=== PATIENT | male | born 1965 | race Caucasian/White ===

== ENCOUNTER 2019-08-14 01:40 | Inpatient (IN) | payer MEDICARE, MEDICAID ==
[~2019-08-14] VITALS: Ht 165.1 cm; Wt 46.9 kg
[~2019-08-14 01:40] MED LIST: AMLO10TA80 PO; ASPI-1497 MT; ATOR40TA70 MT; CLOP75TA4 MT; EPOE10005 SUBCUT; HYDR-4001 MT; HYDR-4001 PO; HYDR-4134 PO; INSLIS SUBCUT; LISI40TA4 PO; NEPVIT MT; PIOG15TA6 MT; SEVE800T8 PO; SODI473S22 TOP
[2019-08-14] MEDS ORDERED: ACETAMINOPHEN 325MG TABLET PO STA (02:32)
[2019-08-14 04:30] LABS: EOSINOPHILS % 2.2 % (0.0-5.0); HEMATOCRIT. 29.8 % (42.0-52.0); HEMOGLOBIN. 9.7 g/dL (14.0-18.0); LYMPHOCYTES % 8.5 % (20.0-50.0); MEAN CORPUSCULAR HEMOGLOBIN 30.3 pg (28.0-32.0); MEAN CORPUSCULAR VOLUME 93.1 fL (80.0-94.0); MONOCYTES % 4.9 % (2.0-8.0); NEUTROPHILS % 83.4 % (40.0-76.0); PLATELET 336 x1000/uL (130-400); RED CELL DISTRIBUTION WIDTH 19.4 % (11.6-14.6)
[2019-08-14 04:39] LABS: CHLORIDE 104 mEq/L (98-107)
[2019-08-14 04:42] LABS: INR 1.1; PROTHROMBIN TIME 11.8 sec (9.6-11.0)
[2019-08-14] MEDS ORDERED: POTASSIUM CHLORIDE 20MEQ TABLET SR PO ONE (05:15)
[2019-08-14] MEDS: SODIUM CHLORIDE 0.45% 1,000 ML IV SCH (11:58)
[2019-08-14] MEDS ORDERED: IPRATROPIUM/ALBUTEROL 0.5-3(2.5)MG/3ML NEB NEB PRN (12:00)
[2019-08-14] MEDS ORDERED: HYDROCODONE/ACETAMINOPHEN 10/325MG TABLET PO PRN (12:00)
[2019-08-14] MEDS ORDERED: ACETAMINOPHEN 325MG TABLET PO PRN (12:00)
[2019-08-14] MEDS ORDERED: LORAZEPAM 2MG/ML CPJ IV PRN (12:00)
[2019-08-14] MEDS ORDERED: MORPHINE SULFATE 2 MG/ML CPJ (NOT FOR IM USE) IV PRN (12:00)
[2019-08-14] MEDS ORDERED: ENOXAPARIN 40MG/0.4ML SYR SUBCUT SCH (12:00)
[2019-08-14] MEDS ORDERED: CLONIDINE 0.1MG TABLET PO PRN (12:00)
[2019-08-14] MEDS ORDERED: DIPHENHYDRAMINE 50MG/ML VIAL IV PRN (12:00)
[2019-08-14] MEDS ORDERED: MAGNESIUM/ALUMINUM HYDROXIDE/SIMETHICONE 30ML UDC PO PRN (12:00)
[2019-08-14] MEDS ORDERED: DOCUSATE SODIUM 100MG CAPSULE PO PRN (12:00)
[2019-08-14] MEDS ORDERED: HYDRALAZINE 20MG/ML VIAL IV PRN (12:00)
[2019-08-14] MEDS ORDERED: GUAIFENESIN 200MG/10ML SUGAR FREE UDC PO PRN (12:00)
[2019-08-14] MEDS ORDERED: ONDANSETRON HCL 4MG/2ML INJ IV PRN (12:00)
[2019-08-14] MEDS ORDERED: DEXTROSE 50% WATER 50ML SYRINGE IV PRN (12:00)
[2019-08-14] MEDS: ENOXAPARIN 30MG/0.3ML SYR SUBCUT SCH (12:30)
[2019-08-14] MEDS ORDERED: LEVOFLOXACIN 500MG PREMIX 100 ML IV SCH (12:30)
[2019-08-14] MEDS ORDERED: POTASSIUM CHLORIDE INJ 40 MEQ in DEXT 5% WATER 250 ML IV ONE (12:45)
[2019-08-14] MEDS ORDERED: POTASSIUM CHLORIDE 20MEQ TABLET SR PO NR (12:45)
[2019-08-14] MEDS: BLOOD SUGAR DIAGNOSTIC STRIP TEST SCH ×3 (13:42→21:01)
[2019-08-14] MEDS: INSULIN LISPRO 100 UNITS/ML SUBCUT SCH ×3 (13:46→21:00)
[2019-08-14] MEDS: SODIUM CHLORIDE 0.9% INJ 3ML FLUSH IVF SCH ×2 (14:56→21:01)
[2019-08-14 17:39] VITALS: BP 167/99
[2019-08-14 20:00] VITALS: BP 116/82
[2019-08-14 23:41] VITALS: BP 112/76
[2019-08-15 04:00] VITALS: BP_SYST 102; BP_SYST 112; BP_DIAS 59; BP_DIAS 76
[2019-08-15] MEDS: BLOOD SUGAR DIAGNOSTIC STRIP TEST SCH ×4 (06:40→21:00)
[2019-08-15 07:01] LABS: EOSINOPHILS % 2.3 % (0.0-5.0); HEMATOCRIT. 27.9 % (42.0-52.0); HEMOGLOBIN. 8.9 g/dL (14.0-18.0); LYMPHOCYTES % 11.1 % (20.0-50.0); MEAN CORPUSCULAR HEMOGLOBIN 30.1 pg (28.0-32.0); MEAN CORPUSCULAR VOLUME 93.9 fL (80.0-94.0); MEAN PLATELET VOLUME 8.8 fl (7.4-10.4); NEUTROPHILS % 81.6 % (40.0-76.0); PLATELET 342 x1000/uL (130-400); RED BLOOD CELL COUNT 2.97 mill/uL (4.7-6.1); RED CELL DISTRIBUTION WIDTH 19.9 % (11.6-14.6)
[2019-08-15 07:09] LABS: CHLORIDE 108 mEq/L (98-107)
[2019-08-15] MEDS: INSULIN LISPRO 100 UNITS/ML SUBCUT SCH ×4 (07:10→21:00)
[2019-08-15 08:00] VITALS: BP 154/96
[2019-08-15] MEDS: SODIUM CHLORIDE 0.45% 1,000 ML IV SCH ×2 (11:58→22:16)
[2019-08-15 12:00] VITALS: BP 135/88
[2019-08-15] MEDS ORDERED: LEVOFLOXACIN 250MG PREMIX 50 ML IV SCH (12:00)
[2019-08-15] MEDS: ENOXAPARIN 30MG/0.3ML SYR SUBCUT SCH (12:47)
[2019-08-15] MEDS: SODIUM CHLORIDE 0.9% INJ 3ML FLUSH IVF SCH (12:50)
[2019-08-15 12:54] LABS: COVID-19 PCR RNA NOT DETECTED
[2019-08-15 12:55] LABS: COVID-19 PCR RNA NOT DETECTED
[2019-08-15 16:00] VITALS: BP 150/92
[2019-08-16] MEDS: INSULIN LISPRO 100 UNITS/ML SUBCUT SCH ×4 (06:09→21:00)
[2019-08-16] MEDS: BLOOD SUGAR DIAGNOSTIC STRIP TEST SCH ×4 (06:09→21:16)
[2019-08-16] MEDS: SODIUM CHLORIDE 0.9% INJ 3ML FLUSH IVF SCH ×3 (06:09→21:17)
[2019-08-16 07:22] LABS: EOSINOPHILS % 2.9 % (0.0-5.0); HEMATOCRIT. 26.9 % (42.0-52.0); HEMOGLOBIN. 8.7 g/dL (14.0-18.0); LYMPHOCYTES % 10.1 % (20.0-50.0); MEAN CORPUSCULAR VOLUME 93.3 fL (80.0-94.0); MEAN PLATELET VOLUME 8.7 fl (7.4-10.4); PLATELET 305 x1000/uL (130-400); RED BLOOD CELL COUNT 2.88 mill/uL (4.7-6.1); RED CELL DISTRIBUTION WIDTH 19.7 % (11.6-14.6)
[2019-08-16 08:00] VITALS: BP 159/91
[2019-08-16 12:00] VITALS: BP 178/99
[2019-08-16] MEDS: ENOXAPARIN 30MG/0.3ML SYR SUBCUT SCH (12:41)
[2019-08-16 16:00] VITALS: BP 163/99
[2019-08-16 20:00] VITALS: BP 139/88
[2019-08-16] MEDS ORDERED: HYDRALAZINE 10 MG in SODIUM CHLORIDE 0.9% 49.5 ML IV PRN (20:15)
[2019-08-17] VITALS: BP 174/99
[2019-08-17 04:00] VITALS: BP 164/72
[2019-08-17 06:01] LABS: BASOPHILS % 0.6 % (0.0-2.0); EOSINOPHILS % 2.3 % (0.0-5.0); HEMATOCRIT. 23.9 % (42.0-52.0); HEMOGLOBIN. 7.7 g/dL (14.0-18.0); LYMPHOCYTES % 10.6 % (20.0-50.0); MEAN CORPUSCULAR HEMOGLOBIN 30.2 pg (28.0-32.0); MEAN CORPUSCULAR VOLUME 93.2 fL (80.0-94.0); MEAN PLATELET VOLUME 8.9 fl (7.4-10.4); MONOCYTES % 4.3 % (2.0-8.0); NEUTROPHILS % 82.2 % (40.0-76.0); PLATELET 309 x1000/uL (130-400); RED BLOOD CELL COUNT 2.57 mill/uL (4.7-6.1); RED CELL DISTRIBUTION WIDTH 19.8 % (11.6-14.6)
[2019-08-17] MEDS: BLOOD SUGAR DIAGNOSTIC STRIP TEST SCH ×2 (06:39→11:54)
[2019-08-17] MEDS: SODIUM CHLORIDE 0.9% INJ 3ML FLUSH IVF SCH ×2 (06:39→14:21)
[2019-08-17] MEDS: INSULIN LISPRO 100 UNITS/ML SUBCUT SCH ×2 (06:48→12:51)
[2019-08-17 08:00] VITALS: BP 166/97
[2019-08-17] MEDS ORDERED: SODIUM HYPOCHLORITE 0.125% 473ML SOLUTION TOP SCH (09:00)
[2019-08-17] MEDS ORDERED: LEVOFLOXACIN 250MG PREMIX 50 ML IV SCH (11:00)
[2019-08-17] MEDS: ENOXAPARIN 30MG/0.3ML SYR SUBCUT SCH (11:54)
[2019-08-17 12:00] VITALS: BP 129/82
[2019-08-17 14:46] VITALS: BP 129/82
== END 2019-08-17 16:29 | disposition home health service (06) | DRG 640 ==
LOC: ER 01:40 → 7EST 04:34 → ENRESERV 15:34 → 6EST 08-15 21:00
PROVIDERS: ADMIT Internal Medicine; ATTEND Internal Medicine
DX: E87.6 Hypokalemia (principal); E43 Unspecified severe protein-calorie malnutrition; N18.6 End stage renal disease; I12.0 Hypertensive chronic kidney disease with stage 5 chronic kidney disease or end stage renal disease; L97.419 Non-pressure chronic ulcer of right heel and midfoot with unspecified severity; Z68.1 Body mass index [BMI] 19.9 or less, adult; R65.10 Systemic inflammatory response syndrome (SIRS) of non-infectious origin without acute organ dysfunction; E11.621 Type 2 diabetes mellitus with foot ulcer; E87.2 Acidosis; I25.10 Atherosclerotic heart disease of native coronary artery without angina pectoris; E11.42 Type 2 diabetes mellitus with diabetic polyneuropathy; D72.810 Lymphocytopenia; E78.00 Pure hypercholesterolemia, unspecified; E11.22 Type 2 diabetes mellitus with diabetic chronic kidney disease; E78.5 Hyperlipidemia, unspecified; D63.8 Anemia in other chronic diseases classified elsewhere; E11.51 Type 2 diabetes mellitus with diabetic peripheral angiopathy without gangrene; Z99.2 Dependence on renal dialysis; Z89.612 Acquired absence of left leg above knee; Z74.01 Bed confinement status; Z98.61 Coronary angioplasty status; Z87.891 Personal history of nicotine dependence; Z79.84 Long term (current) use of oral hypoglycemic drugs; Z79.899 Other long term (current) drug therapy; Z03.818 Encounter for observation for suspected exposure to other biological agents ruled out
CPT/HCPCS: 36415; 71045; 80048; 80053; 82728; 82962; 83605; 83615; 84132; 84145; 84484; 85025; 85379; 86140; 87015; 87045; 87427; 87449; 87804; 93005; 93922; 93971; 97161; 97530; 99285; J1200; J1650; J1815; J1956; J2270; J3480; J7060

== ENCOUNTER 2019-08-22 20:59 | Inpatient (IN) | payer MEDICARE, MEDICAID ==
[~2019-08-22] VITALS: Ht 157.5 cm; Wt 51.7 kg
[~2019-08-22 20:59] MED LIST changes: -INSLIS SUBCUT
[2019-08-22] MEDS ORDERED: VANCOMYCIN 1 G PREMIX 200 ML IV SCH (22:00)
[2019-08-22] MEDS ORDERED: PIPERACILLIN/TAZ 2.25G PREMIX 50 ML IV ONE (22:00)
[2019-08-22] MEDS ORDERED: MORPHINE SULFATE 4 MG/ML CPJ (NOT FOR IM USE) IV ONE (22:15)
[2019-08-22 22:22] LABS: BASOPHILS % 0.9 % (0.0-2.0); EOSINOPHILS % 1.9 % (0.0-5.0); HEMATOCRIT. 26.6 % (42.0-52.0); HEMOGLOBIN. 8.7 g/dL (14.0-18.0); LYMPHOCYTES % 8.2 % (20.0-50.0); MEAN CORPUSCULAR VOLUME 91.6 fL (80.0-94.0); PLATELET 310 x1000/uL (130-400); RED BLOOD CELL COUNT 2.91 mill/uL (4.7-6.1); RED CELL DISTRIBUTION WIDTH 19.4 % (11.6-14.6)
[2019-08-22 22:24] LABS: CHLORIDE 101 mEq/L (98-107)
[2019-08-23] VITALS (9 sets, daily range): BP systolic 139–171; BP diastolic 68–100
[2019-08-23] MEDS ORDERED: MORPHINE SULFATE 2 MG/ML CPJ (NOT FOR IM USE) IV ONE
[2019-08-23] MEDS ORDERED: PIPERACILLIN/TAZOBACTAM 2.25 G in DEXTROSE 5% WATER 50 ML IV SCH ×2 (02:00→13:00)
[2019-08-23] MEDS: MORPHINE SULFATE 2 MG/ML CPJ (NOT FOR IM USE) IV PRN ×5 (03:35→23:12)
[2019-08-23] MEDS ORDERED: PIPERACILLIN/TAZOBACTAM 3.375 G in DEXT 5% WATER 100 ML IV SCH (08:15)
[2019-08-23] MEDS ORDERED: ONDANSETRON HCL 4MG/2ML INJ IV PRN (08:15)
[2019-08-23] MEDS ORDERED: LEVOFLOXACIN 500MG PREMIX 100 ML IV SCH ×2 (09:00→14:00)
[2019-08-23] MEDS ORDERED: VANCOMYCIN 1 G PREMIX 200 ML IV SCH (09:00)
[2019-08-23] MEDS: HYDROCODONE/ACETAMINOPHEN 5/325MG TABLET PO PRN ×2 (10:53→20:32)
[2019-08-23] MEDS: AMLODIPINE 5MG TABLET PO SCH ×2 (10:53→23:11)
[2019-08-23] MEDS: BLOOD SUGAR DIAGNOSTIC STRIP TEST SCH ×3 (11:50→20:35)
[2019-08-23] MEDS ORDERED: LEVOFLOXACIN 250MG PREMIX 50 ML IV SCH (12:15)
[2019-08-23] MEDS: INSULIN LISPRO 100 UNITS/ML SUBCUT SCH ×3 (12:20→20:35)
[2019-08-23] MEDS ORDERED: VANCOMYCIN 500 MG PREMIX 100 ML IV SCH (21:00)
[2019-08-23 21:27] LABS: PHOSPHORUS 2.7 mg/dL (2.5-4.9)
[2019-08-24] VITALS (11 sets, daily range): BP systolic 82–158; BP diastolic 56–103
[2019-08-24] MEDS: METOPROLOL TARTRATE 25MG TABLET PO SCH ×3 (00:22→21:04)
[2019-08-24] MEDS: ACETAMINOPHEN 325MG TABLET PO PRN (05:52)
[2019-08-24] MEDS: BLOOD SUGAR DIAGNOSTIC STRIP TEST SCH ×4 (05:54→21:04)
[2019-08-24 07:09] LABS: HEMATOCRIT. 25.7 % (42.0-52.0); HEMOGLOBIN. 8.1 g/dL (14.0-18.0); MEAN CORPUSCULAR HEMOGLOBIN 29.6 pg (28.0-32.0); MEAN CORPUSCULAR VOLUME 93.8 fL (80.0-94.0); PLATELET 270 x1000/uL (130-400); RED BLOOD CELL COUNT 2.74 mill/uL (4.7-6.1); RED CELL DISTRIBUTION WIDTH 19.4 % (11.6-14.6)
[2019-08-24] MEDS: INSULIN LISPRO 100 UNITS/ML SUBCUT SCH ×4 (07:20→21:00)
[2019-08-24] MEDS: DEXTROSE 50% WATER 50ML SYRINGE IV PRN ×2 (07:22→11:22)
[2019-08-24] MEDS: AMLODIPINE 5MG TABLET PO SCH ×3 (08:44→22:56)
[2019-08-24] MEDS: DEXT 5%/0.45% NACL 1000ML 1,000 ML IV SCH (11:35)
[2019-08-24 13:58] LABS: PLATELET ESTIMATE NORMAL
[2019-08-25] VITALS (14 sets, daily range): BP systolic 94–162; BP diastolic 56–102
[2019-08-25] MEDS: MORPHINE SULFATE 2 MG/ML CPJ (NOT FOR IM USE) IV PRN (05:37)
[2019-08-25] MEDS: BLOOD SUGAR DIAGNOSTIC STRIP TEST SCH ×4 (05:41→20:27)
[2019-08-25 06:25] LABS: HEMATOCRIT. 24.8 % (42.0-52.0); HEMOGLOBIN. 7.9 g/dL (14.0-18.0); MEAN CORPUSCULAR HEMOGLOBIN 29.8 pg (28.0-32.0); MEAN CORPUSCULAR VOLUME 92.9 fL (80.0-94.0); MEAN PLATELET VOLUME 9.3 fl (7.4-10.4); PLATELET 231 x1000/uL (130-400); RED BLOOD CELL COUNT 2.67 mill/uL (4.7-6.1)
[2019-08-25] MEDS: INSULIN LISPRO 100 UNITS/ML SUBCUT SCH ×4 (07:20→20:34)
[2019-08-25] MEDS: AMLODIPINE 5MG TABLET PO SCH ×2 (08:14→20:21)
[2019-08-25] MEDS: METOPROLOL TARTRATE 25MG TABLET PO SCH ×2 (08:14→20:21)
[2019-08-25] MEDS: DEXT 5%/0.45% NACL 1000ML 1,000 ML IV SCH (10:51)
[2019-08-25] MEDS: ACETAMINOPHEN 325MG TABLET PO PRN (10:53)
[2019-08-25] MEDS ORDERED: LEVOFLOXACIN 250MG PREMIX 50 ML IV SCH (11:00)
[2019-08-25] MEDS ORDERED: DEXTROSE 10% WATER 500 ML IV SCH (11:45)
[2019-08-25 13:42] LABS: PLATELET ESTIMATE NORMAL
[2019-08-25] MEDS ORDERED: CEFEPIME 2,000 MG in DEXT 5% WATER 100 ML IV SCH (15:15)
[2019-08-25] MEDS: DEXTROSE 10% WATER 1000ML IV SCH (16:52)
[2019-08-25] MEDS: CEFEPIME 1,000 MG in DEXTROSE 5% WATER 50 ML IV SCH (17:42)
[2019-08-26] VITALS (8 sets, daily range): BP systolic 119–145; BP diastolic 64–79
[2019-08-26] MEDS: BLOOD SUGAR DIAGNOSTIC STRIP TEST SCH ×2 (06:21→12:20)
[2019-08-26] MEDS: INSULIN LISPRO 100 UNITS/ML SUBCUT SCH ×2 (07:20→12:20)
[2019-08-26 07:27] LABS: HEMATOCRIT. 22.2 % (42.0-52.0); HEMOGLOBIN. 7.2 g/dL (14.0-18.0); MEAN CORPUSCULAR HEMOGLOBIN 29.8 pg (28.0-32.0); MEAN CORPUSCULAR VOLUME 92.2 fL (80.0-94.0); MEAN PLATELET VOLUME 9.4 fl (7.4-10.4); PLATELET 193 x1000/uL (130-400); RED BLOOD CELL COUNT 2.41 mill/uL (4.7-6.1); RED CELL DISTRIBUTION WIDTH 19.2 % (11.6-14.6)
[2019-08-26] MEDS: METOPROLOL TARTRATE 25MG TABLET PO SCH ×2 (08:25→21:15)
[2019-08-26] MEDS: AMLODIPINE 5MG TABLET PO SCH ×2 (08:25→21:15)
[2019-08-26 18:03] LABS: PLATELET ESTIMATE NORMAL
[2019-08-26] MEDS: DEXTROSE 10% WATER 1000ML IV SCH (18:35)
[2019-08-26 19:17] LABS: T4 FREE 1.27 ng/dL (0.76-1.46)
[2019-08-26] MEDS ORDERED: VANCOMYCIN 500 MG PREMIX 100 ML IV NR (21:00)
[2019-08-26] MEDS: OMEPRAZOLE 20MG CAPSULE EXTENDED RELEASE PO SCH (21:15)
[2019-08-26] MEDS ORDERED: DEXTROSE 50% WATER 50ML SYRINGE IV PRN (23:15)
[2019-08-27] VITALS (8 sets, daily range): BP systolic 118–152; BP diastolic 65–87
[2019-08-27] MEDS: BLOOD SUGAR DIAGNOSTIC STRIP TEST SCH ×4 (06:02→21:00)
[2019-08-27] MEDS: OMEPRAZOLE 20MG CAPSULE EXTENDED RELEASE PO SCH ×2 (06:02→20:35)
[2019-08-27 06:34] LABS: HEMATOCRIT. 25.3 % (42.0-52.0); HEMOGLOBIN. 8.3 g/dL (14.0-18.0); MEAN CORPUSCULAR HEMOGLOBIN 29.8 pg (28.0-32.0); MEAN CORPUSCULAR VOLUME 91.2 fL (80.0-94.0); MEAN PLATELET VOLUME 9.7 fl (7.4-10.4); PLATELET 182 x1000/uL (130-400); RED BLOOD CELL COUNT 2.78 mill/uL (4.7-6.1); RED CELL DISTRIBUTION WIDTH 18.9 % (11.6-14.6)
[2019-08-27] MEDS ORDERED: INSULIN LISPRO 100 UNITS/ML SUBCUT SCH (07:20)
[2019-08-27] MEDS: METOPROLOL TARTRATE 25MG TABLET PO SCH ×2 (08:38→20:36)
[2019-08-27] MEDS: AMLODIPINE 5MG TABLET PO SCH ×2 (08:39→20:36)
[2019-08-27] MEDS ORDERED: POTASSIUM CHLORIDE 20MEQ TABLET SR PO NR (10:45)
[2019-08-27] MEDS ORDERED: VANCOMYCIN 500 MG PREMIX 100 ML IV NR (12:00)
[2019-08-27] MEDS: CEFEPIME 1,000 MG in DEXTROSE 5% WATER 50 ML IV SCH (17:31)
[2019-08-27] MEDS: LINEZOLID 600 MG PREMIX 300 ML IV SCH (18:35)
[2019-08-27] MEDS: SULFAMETHOXAZOLE/TRIMETHOPRIM 800/160MG TABLET PO SCH (20:35)
[2019-08-27 21:13] LABS: NUCLEATED RED BLOOD CELLS 1 /100 WBC; PLATELET ESTIMATE NORMAL
[2019-08-28] VITALS (10 sets, daily range): BP systolic 92–142; BP diastolic 60–83
[2019-08-28] MEDS: LINEZOLID 600 MG PREMIX 300 ML IV SCH ×2 (05:38→17:13)
[2019-08-28] MEDS: OMEPRAZOLE 20MG CAPSULE EXTENDED RELEASE PO SCH ×2 (05:52→20:39)
[2019-08-28] MEDS: BLOOD SUGAR DIAGNOSTIC STRIP TEST SCH ×4 (06:04→20:39)
[2019-08-28 06:40] LABS: HEMATOCRIT. 22.9 % (42.0-52.0); HEMOGLOBIN. 7.5 g/dL (14.0-18.0); MEAN CORPUSCULAR HEMOGLOBIN 29.7 pg (28.0-32.0); MEAN CORPUSCULAR VOLUME 90.7 fL (80.0-94.0); MEAN PLATELET VOLUME 9.6 fl (7.4-10.4); PLATELET 148 x1000/uL (130-400); RED BLOOD CELL COUNT 2.53 mill/uL (4.7-6.1); RED CELL DISTRIBUTION WIDTH 18.9 % (11.6-14.6)
[2019-08-28] MEDS: METOPROLOL TARTRATE 25MG TABLET PO SCH ×2 (09:10→20:39)
[2019-08-28] MEDS: AMLODIPINE 5MG TABLET PO SCH ×2 (09:10→20:38)
[2019-08-28 13:44] LABS: PLATELET ESTIMATE NORMAL
[2019-08-28] MEDS ORDERED: POTASSIUM CHLORIDE 20MEQ TABLET SR PO NR (15:30)
[2019-08-28] MEDS: MEROPENEM 500 MG in SODIUM CHLORIDE 0.9% 50 ML IV SCH (17:29)
[2019-08-28] MEDS ORDERED: HEPARIN SODIUM 1,000 UNIT/1ML VIAL IV SCH (18:30)
[2019-08-28] MEDS: SULFAMETHOXAZOLE/TRIMETHOPRIM 800/160MG TABLET PO SCH (20:38)
[2019-08-29] VITALS (12 sets, daily range): BP systolic 93–135; BP diastolic 49–75
[2019-08-29] MEDS: MEROPENEM 500 MG in SODIUM CHLORIDE 0.9% 50 ML IV SCH ×2 (04:08→17:55)
[2019-08-29] MEDS: LINEZOLID 600 MG PREMIX 300 ML IV SCH ×2 (05:23→19:38)
[2019-08-29] MEDS: OMEPRAZOLE 20MG CAPSULE EXTENDED RELEASE PO SCH ×2 (06:04→21:28)
[2019-08-29] MEDS: BLOOD SUGAR DIAGNOSTIC STRIP TEST SCH ×4 (06:04→21:29)
[2019-08-29] MEDS: ACETAMINOPHEN 325MG TABLET PO PRN (06:04)
[2019-08-29 06:36] LABS: HEMATOCRIT. 24.5 % (42.0-52.0); MEAN CORPUSCULAR HEMOGLOBIN 29.6 pg (28.0-32.0); MEAN CORPUSCULAR VOLUME 90.3 fL (80.0-94.0); MEAN PLATELET VOLUME 9.7 fl (7.4-10.4); PLATELET 168 x1000/uL (130-400); RED BLOOD CELL COUNT 2.71 mill/uL (4.7-6.1); RED CELL DISTRIBUTION WIDTH 18.7 % (11.6-14.6)
[2019-08-29] MEDS: METOPROLOL TARTRATE 25MG TABLET PO SCH ×2 (09:14→21:28)
[2019-08-29] MEDS: AMLODIPINE 5MG TABLET PO SCH ×2 (09:14→21:29)
[2019-08-29] MEDS: HYDROCODONE/ACETAMINOPHEN 5/325MG TABLET PO PRN ×2 (11:08→21:39)
[2019-08-29] MEDS ORDERED: POTASSIUM CHLORIDE 20MEQ TABLET SR PO SCH (11:45)
[2019-08-29 12:45] LABS: PLATELET ESTIMATE NORMAL
[2019-08-29] MEDS: SULFAMETHOXAZOLE/TRIMETHOPRIM 800/160MG TABLET PO SCH (21:28)
[2019-08-30] VITALS (13 sets, daily range): BP systolic 97–133; BP diastolic 56–75
[2019-08-30] MEDS: MORPHINE SULFATE 2 MG/ML CPJ (NOT FOR IM USE) IV PRN ×4 (02:05→21:31)
[2019-08-30] MEDS: MEROPENEM 500 MG in SODIUM CHLORIDE 0.9% 50 ML IV SCH ×2 (04:17→17:11)
[2019-08-30] MEDS: LINEZOLID 600 MG PREMIX 300 ML IV SCH ×2 (05:11→18:28)
[2019-08-30] MEDS: BLOOD SUGAR DIAGNOSTIC STRIP TEST SCH ×4 (05:52→21:16)
[2019-08-30] MEDS: OMEPRAZOLE 20MG CAPSULE EXTENDED RELEASE PO SCH (05:52)
[2019-08-30] MEDS: AMLODIPINE 5MG TABLET PO SCH ×2 (08:22→21:29)
[2019-08-30] MEDS: METOPROLOL TARTRATE 25MG TABLET PO SCH ×2 (08:24→21:30)
[2019-08-30 09:32] LABS: HEMATOCRIT. 25.1 % (42.0-52.0); HEMOGLOBIN. 8.1 g/dL (14.0-18.0); MEAN CORPUSCULAR HEMOGLOBIN 29.5 pg (28.0-32.0); MEAN CORPUSCULAR VOLUME 91.2 fL (80.0-94.0); MEAN PLATELET VOLUME 9.6 fl (7.4-10.4); PLATELET 165 x1000/uL (130-400); RED BLOOD CELL COUNT 2.75 mill/uL (4.7-6.1); RED CELL DISTRIBUTION WIDTH 18.5 % (11.6-14.6)
[2019-08-30 12:31] LABS: PLATELET ESTIMATE NORMAL
[2019-08-30] MEDS: HYDROCODONE/ACETAMINOPHEN 5/325MG TABLET PO PRN (17:11)
[2019-08-30] MEDS: SULFAMETHOXAZOLE/TRIMETHOPRIM 800/160MG TABLET PO SCH (21:30)
[2019-08-31] VITALS (12 sets, daily range): BP systolic 104–125; BP diastolic 55–75
[2019-08-31] MEDS: MEROPENEM 500 MG in SODIUM CHLORIDE 0.9% 50 ML IV SCH ×2 (04:17→17:22)
[2019-08-31] MEDS: MORPHINE SULFATE 2 MG/ML CPJ (NOT FOR IM USE) IV PRN ×4 (04:38→22:14)
[2019-08-31] MEDS: LINEZOLID 600 MG PREMIX 300 ML IV SCH ×2 (05:55→17:32)
[2019-08-31] MEDS: BLOOD SUGAR DIAGNOSTIC STRIP TEST SCH ×4 (06:52→22:20)
[2019-08-31 07:12] LABS: HEMATOCRIT. 23.9 % (42.0-52.0); HEMOGLOBIN. 7.7 g/dL (14.0-18.0); MEAN CORPUSCULAR HEMOGLOBIN 29.4 pg (28.0-32.0); MEAN CORPUSCULAR VOLUME 91.3 fL (80.0-94.0); MEAN PLATELET VOLUME 9.9 fl (7.4-10.4); PLATELET 198 x1000/uL (130-400); RED BLOOD CELL COUNT 2.62 mill/uL (4.7-6.1); RED CELL DISTRIBUTION WIDTH 18.4 % (11.6-14.6)
[2019-08-31] MEDS: METOPROLOL TARTRATE 25MG TABLET PO SCH ×2 (09:00→22:22)
[2019-08-31] MEDS: AMLODIPINE 5MG TABLET PO SCH ×2 (09:00→22:22)
[2019-08-31] MEDS: FAMOTIDINE 20MG TABLET PO SCH (09:24)
[2019-08-31] MEDS: HYDROCODONE/ACETAMINOPHEN 5/325MG TABLET PO PRN (12:52)
[2019-08-31 16:36] LABS: PLATELET ESTIMATE NORMAL
[2019-08-31] MEDS ORDERED: LINE600T14 MT (16:39)
[2019-08-31] MEDS ORDERED: SULF1TAB44 MT (16:39)
[2019-08-31] MEDS ORDERED: AMOX1TAB16 MT (19:11)
[2019-08-31] MEDS ORDERED: EPOETIN ALFA 10000UNITS/ML VIAL SUBCUT SCH (21:00)
[2019-08-31] MEDS: SULFAMETHOXAZOLE/TRIMETHOPRIM 800/160MG TABLET PO SCH (22:23)
[2019-09-01] VITALS (8 sets, daily range): BP systolic 108–146; BP diastolic 65–83
[2019-09-01] MEDS: MORPHINE SULFATE 2 MG/ML CPJ (NOT FOR IM USE) IV PRN ×2 (04:21→09:44)
[2019-09-01] MEDS: MEROPENEM 500 MG in SODIUM CHLORIDE 0.9% 50 ML IV SCH (04:22)
[2019-09-01] MEDS: LINEZOLID 600 MG PREMIX 300 ML IV SCH (05:50)
[2019-09-01] MEDS: HYDROCODONE/ACETAMINOPHEN 5/325MG TABLET PO PRN (06:12)
[2019-09-01] MEDS: BLOOD SUGAR DIAGNOSTIC STRIP TEST SCH ×2 (06:20→12:11)
[2019-09-01 07:23] LABS: HEMOGLOBIN. 7.6 g/dL (14.0-18.0); MEAN CORPUSCULAR HEMOGLOBIN 29.3 pg (28.0-32.0); MEAN CORPUSCULAR VOLUME 92.3 fL (80.0-94.0); MEAN PLATELET VOLUME 9.6 fl (7.4-10.4); PLATELET 203 x1000/uL (130-400); RED CELL DISTRIBUTION WIDTH 18.3 % (11.6-14.6)
[2019-09-01] MEDS: METOPROLOL TARTRATE 25MG TABLET PO SCH (08:45)
[2019-09-01] MEDS: AMLODIPINE 5MG TABLET PO SCH (08:45)
[2019-09-01] MEDS: FAMOTIDINE 20MG TABLET PO SCH (08:46)
[2019-09-01 11:31] LABS: PLATELET ESTIMATE NORMAL
== END 2019-09-01 18:30 | disposition home health service (06) | DRG 564 ==
LOC: ER 20:59 → 3WST 23:41 → EDBEDREQTM 23:56 → EDBEDREQSVC 23:56 → EDBEDREQ 23:56 → CANRESERV 08-23 02:25 → ENRESERV 08-23 02:25
PROVIDERS: ADMIT Internal Medicine; ATTEND Internal Medicine
PROC: 5A1D70Z Performance of Urinary Filtration, Intermittent, Less than 6 Hours Per Day (ICD-10-PCS; 2019-08-23)
PROC: 5A1D70Z Performance of Urinary Filtration, Intermittent, Less than 6 Hours Per Day (ICD-10-PCS; 2019-08-24)
PROC: 5A1D70Z Performance of Urinary Filtration, Intermittent, Less than 6 Hours Per Day (ICD-10-PCS; 2019-08-25)
PROC: 5A1D70Z Performance of Urinary Filtration, Intermittent, Less than 6 Hours Per Day (ICD-10-PCS; 2019-08-27)
PROC: 5A1D70Z Performance of Urinary Filtration, Intermittent, Less than 6 Hours Per Day (ICD-10-PCS; 2019-08-30)
PROC: 5A1D70Z Performance of Urinary Filtration, Intermittent, Less than 6 Hours Per Day (ICD-10-PCS; principal; 2019-09-01)
DX: T87.44 Infection of amputation stump, left lower extremity (principal); A41.9 Sepsis, unspecified organism; N18.6 End stage renal disease; E43 Unspecified severe protein-calorie malnutrition; E11.52 Type 2 diabetes mellitus with diabetic peripheral angiopathy with gangrene; E87.1 Hypo-osmolality and hyponatremia; I12.0 Hypertensive chronic kidney disease with stage 5 chronic kidney disease or end stage renal disease; I96 Gangrene, not elsewhere classified; L97.419 Non-pressure chronic ulcer of right heel and midfoot with unspecified severity; N48.89 Other specified disorders of penis; D63.8 Anemia in other chronic diseases classified elsewhere; I25.10 Atherosclerotic heart disease of native coronary artery without angina pectoris; E11.22 Type 2 diabetes mellitus with diabetic chronic kidney disease; E78.5 Hyperlipidemia, unspecified; E87.5 Hyperkalemia; E11.649 Type 2 diabetes mellitus with hypoglycemia without coma; L89.619 Pressure ulcer of right heel, unspecified stage; E87.6 Hypokalemia; E11.42 Type 2 diabetes mellitus with diabetic polyneuropathy; Y83.5 Amputation of limb(s) as the cause of abnormal reaction of the patient, or of later complication, without mention of misadventure at the time of the procedure; B96.20 Unspecified Escherichia coli [E. coli] as the cause of diseases classified elsewhere; N48.29 Other inflammatory disorders of penis; E11.621 Type 2 diabetes mellitus with foot ulcer; Z79.899 Other long term (current) drug therapy; Z99.2 Dependence on renal dialysis; Z89.612 Acquired absence of left leg above knee; Z74.01 Bed confinement status; Z68.20 Body mass index [BMI] 20.0-20.9, adult; Z87.891 Personal history of nicotine dependence; Z98.61 Coronary angioplasty status; Y92.89 Other specified places as the place of occurrence of the external cause; Z79.4 Long term (current) use of insulin
CPT/HCPCS: 36415; 71045; 72192; 73700; 80048; 80053; 80202; 82533; 82962; 83036; 83605; 84100; 84145; 84439; 84443; 85025; 86376; 87070; 87077; 87186; 93005; 97110; 97162; 97166; 97530; 99285; J0692; J0885; J1644; J1815; J1956; J2020; J2185; J2270; J2405; J2543; J3370; J7060

== ENCOUNTER 2019-09-15 18:04 | Inpatient (IN) | payer MEDICARE, MEDICAID ==
[~2019-09-15] VITALS: Ht 167.6 cm; Wt 50.3 kg
[~2019-09-15 18:04] MED LIST changes: +AMOX1TAB16 MT; +LINE600T14 MT; -PIOG15TA6 MT; +SULF1TAB44 MT
[2019-09-15 19:31] LABS: BASOPHILS % 1.2 % (0.0-2.0); CHLORIDE 102 mEq/L (98-107); EOSINOPHILS % 5.4 % (0.0-5.0); MEAN PLATELET VOLUME 9.6 fl (7.4-10.4); MONOCYTES % 8.6 % (2.0-8.0); NEUTROPHILS % 66.8 % (40.0-76.0); PLATELET 290 x1000/uL (130-400); RED BLOOD CELL COUNT 2.06 mill/uL (4.7-6.1); RED CELL DISTRIBUTION WIDTH 19.3 % (11.6-14.6)
[2019-09-15 19:33] LABS: HEMATOCRIT. 18.7 % (42.0-52.0); HEMOGLOBIN. 6.2 g/dL (14.0-18.0)
[2019-09-15 19:36] LABS: INR 1.1; PARTIAL THROMBOPLASTIN TIME 58.4 sec (23.4-31.0)
[2019-09-15] MEDS ORDERED: ALPRAZOLAM 0.25 MG TABLET PO ONE (20:15)
[2019-09-15] MEDS ORDERED: POTASSIUM CHLORIDE 20MEQ TABLET SR PO ONE ×2 (20:15)
[2019-09-15] MEDS ORDERED: POTASSIUM CHLORIDE INJ 40 MEQ in DEXT 5% WATER 250 ML IV ONE (20:30)
[2019-09-15] MEDS ORDERED: HYDROCODONE/ACETAMINOPHEN 5/325MG TABLET PO PRN (22:45)
[2019-09-15] MEDS ORDERED: DOCUSATE SODIUM 100MG CAPSULE PO PRN (22:45)
[2019-09-15] MEDS ORDERED: GUAIFENESIN 200MG/10ML SUGAR FREE UDC PO PRN (22:45)
[2019-09-15] MEDS ORDERED: ACETAMINOPHEN 325MG TABLET PO PRN (22:45)
[2019-09-15] MEDS ORDERED: MAGNESIUM/ALUMINUM HYDROXIDE/SIMETHICONE 30ML UDC PO PRN (22:45)
[2019-09-15] MEDS ORDERED: ONDANSETRON HCL 4MG/2ML INJ IV PRN (22:45)
[2019-09-15] MEDS ORDERED: KCL 10MEQ/50ML PREMIX 50 ML IV NR (22:48)
[2019-09-15] MEDS ORDERED: AMLODIPINE 10MG TABLET PO NR (22:49)
[2019-09-15] MEDS ORDERED: AMLODIPINE 10MG TABLET PO SCH (23:07)
[2019-09-15] MEDS: CLONIDINE 0.1MG TABLET PO PRN (23:54)
[2019-09-16 06:22] LABS: BASOPHILS % 1.3 % (0.0-2.0); CHLORIDE 104 mEq/L (98-107); EOSINOPHILS % 4.2 % (0.0-5.0); HEMATOCRIT. 22.9 % (42.0-52.0); HEMOGLOBIN. 7.7 g/dL (14.0-18.0); LYMPHOCYTES % 14.3 % (20.0-50.0); MEAN CORPUSCULAR VOLUME 89.3 fL (80.0-94.0); MEAN PLATELET VOLUME 8.9 fl (7.4-10.4); MONOCYTES % 9.5 % (2.0-8.0); NEUTROPHILS % 70.7 % (40.0-76.0); PLATELET 254 x1000/uL (130-400); RED BLOOD CELL COUNT 2.56 mill/uL (4.7-6.1); RED CELL DISTRIBUTION WIDTH 19.1 % (11.6-14.6)
[2019-09-16] MEDS ORDERED: DEXTROSE 50% WATER 50ML SYRINGE IV PRN (07:45)
[2019-09-16] MEDS: INSULIN LISPRO 100 UNITS/ML SUBCUT SCH ×4 (09:57→20:50)
[2019-09-16] MEDS: FERROUS SULFATE 325MG TABLET PO SCH (09:57)
[2019-09-16] MEDS: AMLODIPINE 10MG TABLET PO SCH (09:57)
[2019-09-16] MEDS: BLOOD SUGAR DIAGNOSTIC STRIP TEST SCH ×4 (09:59→20:50)
[2019-09-16 18:31] VITALS: BP 147/88
[2019-09-16 20:00] VITALS: BP 145/81
[2019-09-16 22:00] VITALS: BP 162/93
[2019-09-16] MEDS: DIPHENHYDRAMINE 50MG/ML VIAL IV PRN (23:22)
[2019-09-17] VITALS (11 sets, daily range): BP systolic 127–166; BP diastolic 72–104
[2019-09-17] MEDS: DIPHENHYDRAMINE 50MG/ML VIAL IV PRN (06:25)
[2019-09-17] MEDS: BLOOD SUGAR DIAGNOSTIC STRIP TEST SCH ×4 (06:25→20:31)
[2019-09-17] MEDS: INSULIN LISPRO 100 UNITS/ML SUBCUT SCH ×4 (07:20→21:00)
[2019-09-17] MEDS: FERROUS SULFATE 325MG TABLET PO SCH (08:41)
[2019-09-17] MEDS: AMLODIPINE 10MG TABLET PO SCH (08:42)
[2019-09-17 11:09] LABS: BASOPHILS % 1.9 % (0.0-2.0); HEMATOCRIT. 25.3 % (42.0-52.0); HEMOGLOBIN. 8.2 g/dL (14.0-18.0); LYMPHOCYTES % 13.7 % (20.0-50.0); MEAN CORPUSCULAR HEMOGLOBIN 29.3 pg (28.0-32.0); MEAN CORPUSCULAR VOLUME 90.1 fL (80.0-94.0); MEAN PLATELET VOLUME 8.7 fl (7.4-10.4); MONOCYTES % 7.1 % (2.0-8.0); NEUTROPHILS % 71.3 % (40.0-76.0); PLATELET 293 x1000/uL (130-400); RED BLOOD CELL COUNT 2.81 mill/uL (4.7-6.1); RED CELL DISTRIBUTION WIDTH 19.7 % (11.6-14.6)
[2019-09-17] MEDS: CLONIDINE 0.1MG TABLET PO PRN (21:17)
[2019-09-18] VITALS: BP 141/78
[2019-09-18 04:00] VITALS: BP 116/75
[2019-09-18] MEDS: FERROUS SULFATE 325MG TABLET PO SCH (04:05)
[2019-09-18] MEDS: BLOOD SUGAR DIAGNOSTIC STRIP TEST SCH ×4 (05:50→21:00)
[2019-09-18] MEDS: INSULIN LISPRO 100 UNITS/ML SUBCUT SCH ×4 (05:54→21:00)
[2019-09-18 06:32] LABS: BASOPHILS % 1.1 % (0.0-2.0); EOSINOPHILS % 5.7 % (0.0-5.0); LYMPHOCYTES % 13.6 % (20.0-50.0); MEAN CORPUSCULAR HEMOGLOBIN 30.2 pg (28.0-32.0); MEAN CORPUSCULAR VOLUME 90.5 fL (80.0-94.0); MEAN PLATELET VOLUME 9.1 fl (7.4-10.4); MONOCYTES % 7.9 % (2.0-8.0); NEUTROPHILS % 71.7 % (40.0-76.0); PLATELET 278 x1000/uL (130-400); RED BLOOD CELL COUNT 2.65 mill/uL (4.7-6.1); RED CELL DISTRIBUTION WIDTH 19.6 % (11.6-14.6)
[2019-09-18 08:00] VITALS: BP 110/72
[2019-09-18] MEDS: AMLODIPINE 10MG TABLET PO SCH (08:39)
[2019-09-18] MEDS ORDERED: FENTANYL CITRATE/PF 50MCG/ML 2ML VIAL ONE (10:13)
[2019-09-18] MEDS ORDERED: GLYCOPYRROLATE 0.2 MG/ML 2ML VIAL ONE (10:13)
[2019-09-18] MEDS ORDERED: ROCURONIUM BROMIDE 10MG/ML VIAL 5ML IV ONE (10:13)
[2019-09-18] MEDS ORDERED: NEOSTIGMINE METHYLSULFATE 1MG/ML 10 ML VIAL ONE (10:13)
[2019-09-18] MEDS ORDERED: MIDAZOLAM HCL 2 MG/2 ML VIAL ONE (10:13)
[2019-09-18] MEDS ORDERED: PROPOFOL 200MG/20ML VIAL IV ONE (10:13)
[2019-09-18] MEDS ORDERED: BUPIVACAINE HCL 0.5% (5MG/ML) 50ML ONE (10:14)
[2019-09-18] MEDS ORDERED: LABETALOL 5MG/ML SYR 20 MG/4 ML SYRINGE IV PRN (11:00)
[2019-09-18] MEDS ORDERED: HYDROMORPHONE HCL/PF 2MG/ML CPJ IV PRN (11:00)
[2019-09-18] MEDS ORDERED: ONDANSETRON HCL 4MG/2ML INJ IV PRN (11:00)
[2019-09-18] MEDS ORDERED: MEPERIDINE HCL/PF 25MG/ML CPJ IV PRN (11:00)
[2019-09-18] MEDS ORDERED: CEFAZOLIN SODIUM 1000MG/VIAL ONE (11:14)
[2019-09-18] MEDS ORDERED: ONDANSETRON HCL 4MG/2ML INJ ONE (11:14)
[2019-09-18] MEDS ORDERED: LIDOCAINE HCL 1% 20ML VIAL (Pyxis) INJ ONE (11:14)
[2019-09-18] MEDS ORDERED: DEXAMETHASONE 4MG/ML 1ML VIAL ONE (11:14)
[2019-09-18] MEDS ORDERED: SODIUM CHLORIDE 0.9% 10ML VIAL ONE (11:14)
[2019-09-18] MEDS ORDERED: SKIN ADHESIVE 0.7 GM EA TOP ONE (11:18)
[2019-09-18 14:00] VITALS: BP 152/94
[2019-09-18 16:00] VITALS: BP 144/90
[2019-09-18 20:00] VITALS: BP 152/87
[2019-09-19] VITALS: BP 151/92
[2019-09-19 04:00] VITALS: BP 149/72
[2019-09-19 06:52] LABS: HEMATOCRIT. 26.1 % (42.0-52.0); HEMOGLOBIN. 8.4 g/dL (14.0-18.0); MEAN CORPUSCULAR HEMOGLOBIN 29.1 pg (28.0-32.0); MEAN CORPUSCULAR VOLUME 90.3 fL (80.0-94.0); MEAN PLATELET VOLUME 9.1 fl (7.4-10.4); PLATELET 308 x1000/uL (130-400); RED BLOOD CELL COUNT 2.89 mill/uL (4.7-6.1); RED CELL DISTRIBUTION WIDTH 19.9 % (11.6-14.6)
[2019-09-19] MEDS: BLOOD SUGAR DIAGNOSTIC STRIP TEST SCH ×2 (07:20→12:20)
[2019-09-19] MEDS: INSULIN LISPRO 100 UNITS/ML SUBCUT SCH ×2 (07:50→12:50)
[2019-09-19 08:00] VITALS: BP 183/97
[2019-09-19 09:52] VITALS: BP 183/97
[2019-09-19] MEDS: AMLODIPINE 10MG TABLET PO SCH (09:56)
[2019-09-19] MEDS: FERROUS SULFATE 325MG TABLET PO SCH (09:56)
[2019-09-19 12:00] VITALS: BP 179/85
[2019-09-19 14:45] VITALS: BP 183/97
[2019-09-20 09:00] LABS: PLATELET ESTIMATE NORMAL
== END 2019-09-19 15:53 | disposition home or self-care (01) | DRG 907 ==
LOC: ER 18:04 → ENRESERV 09-16 16:29 → 3WST 09-16 17:01 → ENRESERV 09-16 17:01 → 6WST 09-17 18:28
PROVIDERS: ADMIT Hospitalist; ATTEND Hospitalist
PROC: 30233N1 Transfusion of Nonautologous Red Blood Cells into Peripheral Vein, Percutaneous Approach (ICD-10-PCS; 2019-09-16)
PROC: 5A1D70Z Performance of Urinary Filtration, Intermittent, Less than 6 Hours Per Day (ICD-10-PCS; 2019-09-17)
PROC: 5A1D70Z Performance of Urinary Filtration, Intermittent, Less than 6 Hours Per Day (ICD-10-PCS; 2019-09-17)
PROC: 0WPG03Z Removal of Infusion Device from Peritoneal Cavity, Open Approach (ICD-10-PCS; principal; 2019-09-18)
DX: T85.611A Breakdown (mechanical) of intraperitoneal dialysis catheter, initial encounter (principal); N18.6 End stage renal disease; I12.0 Hypertensive chronic kidney disease with stage 5 chronic kidney disease or end stage renal disease; E46 Unspecified protein-calorie malnutrition; Z68.1 Body mass index [BMI] 19.9 or less, adult; Y82.8 Other medical devices associated with adverse incidents; Y92.89 Other specified places as the place of occurrence of the external cause; E11.22 Type 2 diabetes mellitus with diabetic chronic kidney disease; E11.51 Type 2 diabetes mellitus with diabetic peripheral angiopathy without gangrene; D63.1 Anemia in chronic kidney disease; Z87.891 Personal history of nicotine dependence; E11.42 Type 2 diabetes mellitus with diabetic polyneuropathy; I25.10 Atherosclerotic heart disease of native coronary artery without angina pectoris; L89.610 Pressure ulcer of right heel, unstageable; E78.5 Hyperlipidemia, unspecified; E87.6 Hypokalemia; Z99.2 Dependence on renal dialysis; Z89.612 Acquired absence of left leg above knee; Z98.61 Coronary angioplasty status; Z74.01 Bed confinement status
CPT/HCPCS: 36415; 80048; 80053; 82962; 83036; 83540; 83550; 83735; 83880; 84484; 85025; 86850; 86900; 86920; 88300; 93005; 99285; J0690; J1100; J1200; J1815; J2250; J2405; J2704; J2710; J3010; J3480; J3490; J7060; P9016

== ENCOUNTER 2019-11-20 15:40 | Inpatient (IN) | payer MEDICARE, MEDICAID ==
[~2019-11-20] VITALS: Ht 167.6 cm; Wt 52.4 kg
[2019-11-20] MEDS ORDERED: SODIUM CHLORIDE 0.9% 500 ML IV ONE (16:30)
[2019-11-20] MEDS ORDERED: CEFAZOLIN 1000MG PREMIX 50 ML IV ONE (16:30)
[2019-11-20 16:52] LABS: HEMATOCRIT. 36.3 % (42.0-52.0); HEMOGLOBIN. 11.4 g/dL (14.0-18.0); MEAN CORPUSCULAR HEMOGLOBIN 28.3 pg (28.0-32.0); MEAN CORPUSCULAR VOLUME 89.7 fL (80.0-94.0); MEAN PLATELET VOLUME 9.6 fl (7.4-10.4); PLATELET 327 x1000/uL (130-400); RED BLOOD CELL COUNT 4.04 mill/uL (4.7-6.1); RED CELL DISTRIBUTION WIDTH 18.4 % (11.6-14.6)
[2019-11-20 16:59] LABS: CHLORIDE 92 mEq/L (98-107)
[2019-11-20] MEDS ORDERED: VANCOMYCIN 1 G PREMIX 200 ML IV SCH (17:00)
[2019-11-20 17:01] LABS: INR 1.3
[2019-11-20 18:04] LABS: NUCLEATED RED BLOOD CELLS 3 /100 WBC; PLATELET ESTIMATE NORMAL
[2019-11-20 21:00] VITALS: BP 159/50
[2019-11-20 21:30] VITALS: BP 159/50
[2019-11-20] MEDS ORDERED: PIPERACILLIN/TAZOBACTAM 3.375 G/VIAL IV SCH (22:45)
[2019-11-20] MEDS ORDERED: DEXTROSE 50% WATER 50ML SYRINGE IV PRN (23:15)
[2019-11-21] VITALS: BP 150/52
[2019-11-21] MEDS ORDERED: PIPERACILLIN/TAZOBACTAM 2.25 G in DEXTROSE 5% WATER 50 ML IV SCH ×2
[2019-11-21 04:00] VITALS: BP 164/52
[2019-11-21] MEDS: INSULIN LISPRO 100 UNITS/ML SUBCUT SCH ×4 (07:03→20:34)
[2019-11-21] MEDS: BLOOD SUGAR DIAGNOSTIC STRIP TEST SCH ×4 (07:03→20:34)
[2019-11-21 07:16] LABS: HEMATOCRIT. 33.1 % (42.0-52.0); HEMOGLOBIN. 10.6 g/dL (14.0-18.0); MEAN CORPUSCULAR HEMOGLOBIN 28.6 pg (28.0-32.0); MEAN CORPUSCULAR VOLUME 89.3 fL (80.0-94.0); MEAN PLATELET VOLUME 9.6 fl (7.4-10.4); PLATELET 324 x1000/uL (130-400); RED BLOOD CELL COUNT 3.71 mill/uL (4.7-6.1); RED CELL DISTRIBUTION WIDTH 18.6 % (11.6-14.6)
[2019-11-21 08:00] VITALS: BP 134/30
[2019-11-21] MEDS: SEVELAMER CARBONATE 800 MG TABLET PO SCH ×3 (08:26→17:25)
[2019-11-21] MEDS ORDERED: FOLIC ACID/VITAMIN B COMP W-C TABLET PO SCH (09:00)
[2019-11-21] MEDS ORDERED: CLOPIDOGREL 75MG TABLET PO SCH (09:00)
[2019-11-21] MEDS ORDERED: ASPIRIN 81MG TABLET PO SCH (09:00)
[2019-11-21] MEDS ORDERED: AMLODIPINE 10MG TABLET PO SCH (09:00)
[2019-11-21 09:21] LABS: CHLORIDE 94 mEq/L (98-107)
[2019-11-21] MEDS: FOLIC ACID/VITAMIN B COMP W-C TABLET PO SCH (09:21)
[2019-11-21] MEDS: PIPERACILLIN/TAZOBACTAM 2.25 G in DEXTROSE 5% WATER 50 ML IV SCH ×3 (09:21→23:33)
[2019-11-21] MEDS: ASPIRIN 81MG TABLET PO SCH (09:22)
[2019-11-21] MEDS: AMLODIPINE 10MG TABLET PO SCH (09:22)
[2019-11-21] MEDS: CLOPIDOGREL 75MG TABLET PO SCH (09:22)
[2019-11-21 12:00] VITALS: BP 143/28
[2019-11-21 14:19] LABS: PLATELET ESTIMATE NORMAL
[2019-11-21 16:00] VITALS: BP 139/48
[2019-11-21 20:00] VITALS: BP 134/42
[2019-11-21] MEDS: ATORVASTATIN CALCIUM 40MG TABLET PO SCH (20:34)
[2019-11-21] MEDS ORDERED: ATORVASTATIN CALCIUM 40MG TABLET PO SCH (21:00)
[2019-11-22] VITALS: BP 157/42
[2019-11-22 04:00] VITALS: BP 115/31
[2019-11-22 07:22] LABS: HEMATOCRIT. 29.5 % (42.0-52.0); HEMOGLOBIN. 9.5 g/dL (14.0-18.0); MEAN CORPUSCULAR HEMOGLOBIN 28.2 pg (28.0-32.0); MEAN CORPUSCULAR VOLUME 87.4 fL (80.0-94.0); MEAN PLATELET VOLUME 9.6 fl (7.4-10.4); PLATELET 284 x1000/uL (130-400); RED BLOOD CELL COUNT 3.37 mill/uL (4.7-6.1); RED CELL DISTRIBUTION WIDTH 18.7 % (11.6-14.6)
[2019-11-22] MEDS: INSULIN LISPRO 100 UNITS/ML SUBCUT SCH ×4 (07:50→21:48)
[2019-11-22] MEDS: BLOOD SUGAR DIAGNOSTIC STRIP TEST SCH ×4 (08:12→21:23)
[2019-11-22 08:30] VITALS: BP 143/45
[2019-11-22] MEDS: CLOPIDOGREL 75MG TABLET PO SCH (08:46)
[2019-11-22] MEDS: AMLODIPINE 10MG TABLET PO SCH (08:46)
[2019-11-22] MEDS: SEVELAMER CARBONATE 800 MG TABLET PO SCH ×3 (08:52→17:50)
[2019-11-22] MEDS: PIPERACILLIN/TAZOBACTAM 2.25 G in DEXTROSE 5% WATER 50 ML IV SCH ×2 (08:52→16:09)
[2019-11-22] MEDS: FOLIC ACID/VITAMIN B COMP W-C TABLET PO SCH (08:52)
[2019-11-22] MEDS: ASPIRIN 81MG TABLET PO SCH (08:52)
[2019-11-22] MEDS: SODIUM HYPOCHLORITE (0.25%) 480ML SOLUTION (HALF STRENGTH) TOP SCH (09:00)
[2019-11-22] MEDS ORDERED: LIDOCAINE HCL 1% 20ML VIAL (Pyxis) INJ INFIL NR (11:00)
[2019-11-22 13:47] LABS: PLATELET ESTIMATE NORMAL
[2019-11-22 15:56] VITALS: BP 125/54
[2019-11-22] MEDS ORDERED: VANCOMYCIN 1 G PREMIX 200 ML IV NR (18:00)
[2019-11-22 20:00] VITALS: BP 104/56
[2019-11-22] MEDS: ATORVASTATIN CALCIUM 40MG TABLET PO SCH (21:23)
[2019-11-23] VITALS: BP 146/52
[2019-11-23] MEDS: PIPERACILLIN/TAZOBACTAM 2.25 G in DEXTROSE 5% WATER 50 ML IV SCH ×3 (00:11→18:59)
[2019-11-23 04:00] VITALS: BP 112/86
[2019-11-23] MEDS: BLOOD SUGAR DIAGNOSTIC STRIP TEST SCH ×4 (06:43→21:25)
[2019-11-23] MEDS: INSULIN LISPRO 100 UNITS/ML SUBCUT SCH ×4 (07:41→21:00)
[2019-11-23 08:30] VITALS: BP 136/36
[2019-11-23] MEDS: SODIUM HYPOCHLORITE (0.25%) 480ML SOLUTION (HALF STRENGTH) TOP SCH (09:00)
[2019-11-23] MEDS: CLOPIDOGREL 75MG TABLET PO SCH (09:22)
[2019-11-23] MEDS: FOLIC ACID/VITAMIN B COMP W-C TABLET PO SCH (09:23)
[2019-11-23] MEDS: AMLODIPINE 10MG TABLET PO SCH (09:23)
[2019-11-23] MEDS: ASPIRIN 81MG TABLET PO SCH (09:23)
[2019-11-23] MEDS: SEVELAMER CARBONATE 800 MG TABLET PO SCH ×3 (09:23→18:16)
[2019-11-23 11:35] VITALS: BP 139/39
[2019-11-23 13:35] LABS: HEMATOCRIT 29.6 % (42.0-52.0); HEMOGLOBIN 9.6 g/dL (14.0-18.0); MEAN CORPUSCULAR HEMOGLOBIN 28.5 pg (28.0-32.0); MEAN CORPUSCULAR VOLUME 88.2 fL (80.0-94.0); PLATELET 263 x1000/uL (130-400); RED BLOOD CELL COUNT 3.36 mill/uL (4.7-6.1); RED CELL DISTRIBUTION WIDTH 18.7 % (11.6-14.6)
[2019-11-23 13:43] LABS: CHLORIDE 94 mEq/L (98-107)
[2019-11-23 16:25] VITALS: BP 154/33
[2019-11-23 20:30] VITALS: BP 149/41
[2019-11-23] MEDS: ATORVASTATIN CALCIUM 40MG TABLET PO SCH (21:24)
[2019-11-24] VITALS: BP 144/51
[2019-11-24] MEDS: PIPERACILLIN/TAZOBACTAM 2.25 G in DEXTROSE 5% WATER 50 ML IV SCH ×3 (00:05→18:47)
[2019-11-24 04:00] VITALS: BP 147/40
[2019-11-24] MEDS: BLOOD SUGAR DIAGNOSTIC STRIP TEST SCH ×4 (06:28→21:04)
[2019-11-24 06:53] LABS: CHLORIDE 91 mEq/L (98-107)
[2019-11-24 06:55] LABS: HEMATOCRIT. 29.9 % (42.0-52.0); HEMOGLOBIN. 9.5 g/dL (14.0-18.0); MEAN CORPUSCULAR HEMOGLOBIN 27.8 pg (28.0-32.0); MEAN CORPUSCULAR VOLUME 87.9 fL (80.0-94.0); MEAN PLATELET VOLUME 9.6 fl (7.4-10.4); PLATELET 296 x1000/uL (130-400); RED BLOOD CELL COUNT 3.41 mill/uL (4.7-6.1); RED CELL DISTRIBUTION WIDTH 18.8 % (11.6-14.6)
[2019-11-24 07:03] LABS: CREATINE KINASE 13 IU/L (39-308); CREATINE KINASE MB FRACTION < 1.0 ng/mL (0.5-3.6)
[2019-11-24] MEDS: INSULIN LISPRO 100 UNITS/ML SUBCUT SCH ×4 (07:50→21:04)
[2019-11-24 08:00] VITALS: BP 149/83
[2019-11-24] MEDS: SODIUM HYPOCHLORITE (0.25%) 480ML SOLUTION (HALF STRENGTH) TOP SCH (09:00)
[2019-11-24] MEDS: AMLODIPINE 10MG TABLET PO SCH (09:00)
[2019-11-24] MEDS: ASPIRIN 81MG TABLET PO SCH (09:00)
[2019-11-24] MEDS: FOLIC ACID/VITAMIN B COMP W-C TABLET PO SCH (09:00)
[2019-11-24] MEDS: CLOPIDOGREL 75MG TABLET PO SCH (09:00)
[2019-11-24 12:00] VITALS: BP 145/81
[2019-11-24] MEDS: SEVELAMER CARBONATE 800 MG TABLET PO SCH ×3 (13:08→18:46)
[2019-11-24 13:10] LABS: NUCLEATED RED BLOOD CELLS 1 /100 WBC
[2019-11-24] MEDS: ATORVASTATIN CALCIUM 40MG TABLET PO SCH (13:10)
[2019-11-24 13:11] LABS: PLATELET ESTIMATE NORMAL
[2019-11-24 16:00] VITALS: BP 135/76
[2019-11-24 20:07] VITALS: BP 134/82
[2019-11-24] MEDS: HYDROCODONE/ACETAMINOPHEN 10/325MG TABLET PO PRN (21:04)
[2019-11-25 00:27] VITALS: BP 139/81
[2019-11-25] MEDS: PIPERACILLIN/TAZOBACTAM 2.25 G in DEXTROSE 5% WATER 50 ML IV SCH ×3 (00:47→17:20)
[2019-11-25 04:31] VITALS: BP 134/79
[2019-11-25] MEDS: BLOOD SUGAR DIAGNOSTIC STRIP TEST SCH ×4 (06:02→21:52)
[2019-11-25 07:17] LABS: HEMATOCRIT. 32.1 % (42.0-52.0); HEMOGLOBIN. 10.2 g/dL (14.0-18.0); MEAN CORPUSCULAR HEMOGLOBIN 27.9 pg (28.0-32.0); MEAN CORPUSCULAR VOLUME 87.5 fL (80.0-94.0); MEAN PLATELET VOLUME 9.5 fl (7.4-10.4); PLATELET 306 x1000/uL (130-400); RED BLOOD CELL COUNT 3.67 mill/uL (4.7-6.1); RED CELL DISTRIBUTION WIDTH 19.1 % (11.6-14.6)
[2019-11-25 08:00] VITALS: BP 144/26
[2019-11-25] MEDS ORDERED: SODIUM BICARBONATE 4% (2.4MEQ) 5ML VIAL IV ONE (08:28)
[2019-11-25] MEDS ORDERED: LIDOCAINE HCL 1% 20ML VIAL (Pyxis) INJ ONE (08:28)
[2019-11-25] MEDS: FOLIC ACID/VITAMIN B COMP W-C TABLET PO SCH (10:53)
[2019-11-25] MEDS: ASPIRIN 81MG TABLET PO SCH (10:53)
[2019-11-25] MEDS: SEVELAMER CARBONATE 800 MG TABLET PO SCH ×3 (10:53→18:35)
[2019-11-25] MEDS: AMLODIPINE 10MG TABLET PO SCH (10:54)
[2019-11-25] MEDS: CLOPIDOGREL 75MG TABLET PO SCH (10:57)
[2019-11-25] MEDS: SODIUM HYPOCHLORITE (0.25%) 480ML SOLUTION (HALF STRENGTH) TOP SCH (10:57)
[2019-11-25] MEDS: INSULIN LISPRO 100 UNITS/ML SUBCUT SCH ×4 (10:57→20:52)
[2019-11-25 11:14] LABS: PLATELET ESTIMATE NORMAL
[2019-11-25 12:00] VITALS: BP 149/86
[2019-11-25] MEDS ORDERED: IOHEXOL-350 100 ML BOTTLE ONE (14:12)
[2019-11-25 16:00] VITALS: BP 138/82
[2019-11-25 20:00] VITALS: BP 142/80
[2019-11-25] MEDS: ATORVASTATIN CALCIUM 40MG TABLET PO SCH (20:50)
[2019-11-26] VITALS: BP 147/83
[2019-11-26] MEDS: PIPERACILLIN/TAZOBACTAM 2.25 G in DEXTROSE 5% WATER 50 ML IV SCH ×4 (00:23→21:17)
[2019-11-26] MEDS: HYDROCODONE/ACETAMINOPHEN 10/325MG TABLET PO PRN ×2 (01:23→05:23)
[2019-11-26 04:00] VITALS: BP 132/78
[2019-11-26 06:48] LABS: HEMATOCRIT. 31.2 % (42.0-52.0); HEMOGLOBIN. 9.8 g/dL (14.0-18.0); MEAN CORPUSCULAR HEMOGLOBIN 27.5 pg (28.0-32.0); MEAN CORPUSCULAR VOLUME 87.6 fL (80.0-94.0); MEAN PLATELET VOLUME 9.4 fl (7.4-10.4); PLATELET 337 x1000/uL (130-400); RED BLOOD CELL COUNT 3.57 mill/uL (4.7-6.1); RED CELL DISTRIBUTION WIDTH 18.8 % (11.6-14.6)
[2019-11-26] MEDS: SEVELAMER CARBONATE 800 MG TABLET PO SCH ×3 (07:50→17:32)
[2019-11-26] MEDS: INSULIN LISPRO 100 UNITS/ML SUBCUT SCH ×4 (07:50→21:00)
[2019-11-26 08:00] VITALS: BP 144/48
[2019-11-26] MEDS: BLOOD SUGAR DIAGNOSTIC STRIP TEST SCH ×4 (08:04→21:14)
[2019-11-26] MEDS: ASPIRIN 81MG TABLET PO SCH (08:05)
[2019-11-26] MEDS: CLOPIDOGREL 75MG TABLET PO SCH (08:05)
[2019-11-26] MEDS: FOLIC ACID/VITAMIN B COMP W-C TABLET PO SCH (08:05)
[2019-11-26] MEDS: AMLODIPINE 10MG TABLET PO SCH (08:05)
[2019-11-26] MEDS: SODIUM HYPOCHLORITE (0.25%) 480ML SOLUTION (HALF STRENGTH) TOP SCH (08:18)
[2019-11-26 10:03] LABS: PLATELET ESTIMATE NORMAL
[2019-11-26 12:00] VITALS: BP 150/83
[2019-11-26 16:00] VITALS: BP 126/88
[2019-11-26 20:00] VITALS: BP 128/79
[2019-11-26] MEDS: ATORVASTATIN CALCIUM 40MG TABLET PO SCH (21:17)
[2019-11-27] VITALS: BP 133/79
[2019-11-27 04:00] VITALS: BP 131/81
[2019-11-27] MEDS: PIPERACILLIN/TAZOBACTAM 2.25 G in DEXTROSE 5% WATER 50 ML IV SCH ×3 (05:28→21:29)
[2019-11-27 06:17] LABS: HEMATOCRIT. 30.6 % (42.0-52.0); HEMOGLOBIN. 9.5 g/dL (14.0-18.0); MEAN CORPUSCULAR HEMOGLOBIN 27.5 pg (28.0-32.0); MEAN CORPUSCULAR VOLUME 88.3 fL (80.0-94.0); MEAN PLATELET VOLUME 9.5 fl (7.4-10.4); PLATELET 341 x1000/uL (130-400); RED BLOOD CELL COUNT 3.47 mill/uL (4.7-6.1); RED CELL DISTRIBUTION WIDTH 19.4 % (11.6-14.6)
[2019-11-27] MEDS: INSULIN LISPRO 100 UNITS/ML SUBCUT SCH ×4 (07:50→21:32)
[2019-11-27] MEDS: SEVELAMER CARBONATE 800 MG TABLET PO SCH ×3 (07:50→17:09)
[2019-11-27 08:00] VITALS: BP 125/77
[2019-11-27] MEDS: BLOOD SUGAR DIAGNOSTIC STRIP TEST SCH ×4 (08:12→21:29)
[2019-11-27] MEDS: AMLODIPINE 10MG TABLET PO SCH (09:00)
[2019-11-27] MEDS: SODIUM HYPOCHLORITE (0.25%) 480ML SOLUTION (HALF STRENGTH) TOP SCH (09:00)
[2019-11-27] MEDS: FOLIC ACID/VITAMIN B COMP W-C TABLET PO SCH ×2 (09:00→17:11)
[2019-11-27] MEDS: ASPIRIN 81MG TABLET PO SCH (09:00)
[2019-11-27] MEDS: CLOPIDOGREL 75MG TABLET PO SCH ×2 (09:00→17:12)
[2019-11-27] MEDS ORDERED: BUPIVACAINE HCL/PF 0.5% (5MG/ML) 10ML ONE (09:07)
[2019-11-27] MEDS ORDERED: BACITRACIN 50,000 UNITS/VIAL ONE (09:07)
[2019-11-27] MEDS ORDERED: LIDOCAINE HCL 1% 20ML VIAL (Pyxis) INJ ONE (09:07)
[2019-11-27] MEDS ORDERED: LABETALOL 5MG/ML SYR 20 MG/4 ML SYRINGE IV PRN (10:15)
[2019-11-27] MEDS ORDERED: MEPERIDINE HCL/PF 25MG/ML CPJ IV PRN (10:15)
[2019-11-27] MEDS ORDERED: ONDANSETRON HCL 4MG/2ML INJ IV PRN (10:15)
[2019-11-27] MEDS ORDERED: HYDROMORPHONE HCL/PF 2MG/ML CPJ IV PRN (10:15)
[2019-11-27] MEDS: HYDROCODONE/ACETAMINOPHEN 10/325MG TABLET PO PRN ×2 (14:58→22:45)
[2019-11-27 16:30] VITALS: BP 148/72
[2019-11-27 16:47] LABS: PLATELET ESTIMATE NORMAL
[2019-11-27] MEDS: HYDROMORPHONE HCL/PF 2MG/ML CPJ IV PRN (17:25)
[2019-11-27 20:00] VITALS: BP 143/84
[2019-11-27] MEDS: ATORVASTATIN CALCIUM 40MG TABLET PO SCH (21:29)
[2019-11-28] VITALS: BP 141/80
[2019-11-28] MEDS: HYDROMORPHONE HCL/PF 2MG/ML CPJ IV PRN (01:06)
[2019-11-28 04:00] VITALS: BP 162/90
[2019-11-28] MEDS: HYDROCODONE/ACETAMINOPHEN 10/325MG TABLET PO PRN ×2 (05:18→11:35)
[2019-11-28] MEDS: PIPERACILLIN/TAZOBACTAM 2.25 G in DEXTROSE 5% WATER 50 ML IV SCH ×3 (05:19→22:00)
[2019-11-28 06:47] LABS: BASOPHILS % 1.1 % (0.0-2.0); EOSINOPHILS % 4.3 % (0.0-5.0); HEMATOCRIT. 27.3 % (42.0-52.0); HEMOGLOBIN. 8.5 g/dL (14.0-18.0); LYMPHOCYTES % 11.6 % (20.0-50.0); MEAN CORPUSCULAR HEMOGLOBIN 27.6 pg (28.0-32.0); MEAN CORPUSCULAR VOLUME 88.5 fL (80.0-94.0); MEAN PLATELET VOLUME 9.7 fl (7.4-10.4); MONOCYTES % 6.7 % (2.0-8.0); NEUTROPHILS % 76.3 % (40.0-76.0); PLATELET 404 x1000/uL (130-400); RED BLOOD CELL COUNT 3.08 mill/uL (4.7-6.1); RED CELL DISTRIBUTION WIDTH 19.3 % (11.6-14.6)
[2019-11-28] MEDS: BLOOD SUGAR DIAGNOSTIC STRIP TEST SCH ×4 (07:17→20:26)
[2019-11-28 08:31] VITALS: BP 145/80
[2019-11-28] MEDS: ASPIRIN 81MG TABLET PO SCH (08:54)
[2019-11-28] MEDS: SEVELAMER CARBONATE 800 MG TABLET PO SCH ×3 (08:54→17:38)
[2019-11-28] MEDS: CLOPIDOGREL 75MG TABLET PO SCH (08:54)
[2019-11-28] MEDS: AMLODIPINE 10MG TABLET PO SCH (08:54)
[2019-11-28] MEDS: FOLIC ACID/VITAMIN B COMP W-C TABLET PO SCH (08:54)
[2019-11-28] MEDS: INSULIN LISPRO 100 UNITS/ML SUBCUT SCH ×4 (08:55→20:38)
[2019-11-28] MEDS: SODIUM HYPOCHLORITE (0.25%) 480ML SOLUTION (HALF STRENGTH) TOP SCH (08:58)
[2019-11-28] MEDS ORDERED: HYDROCODONE/ACETAMINOPHEN 5/325MG TABLET PO PRN (10:45)
[2019-11-28 11:51] VITALS: BP 144/84
[2019-11-28] MEDS: CLONIDINE 0.1MG TABLET PO SCH ×2 (14:09→22:00)
[2019-11-28 16:00] VITALS: BP 137/82
[2019-11-28 20:00] VITALS: BP 130/75
[2019-11-28] MEDS: ATORVASTATIN CALCIUM 40MG TABLET PO SCH (20:38)
[2019-11-29] VITALS: BP 128/88
[2019-11-29 04:00] VITALS: BP 150/90
[2019-11-29] MEDS: PIPERACILLIN/TAZOBACTAM 2.25 G in DEXTROSE 5% WATER 50 ML IV SCH ×3 (05:17→21:04)
[2019-11-29] MEDS: CLONIDINE 0.1MG TABLET PO SCH ×3 (05:18→21:04)
[2019-11-29] MEDS: BLOOD SUGAR DIAGNOSTIC STRIP TEST SCH ×4 (05:52→20:39)
[2019-11-29 06:20] LABS: BASOPHILS % 0.9 % (0.0-2.0); EOSINOPHILS % 2.8 % (0.0-5.0); HEMATOCRIT. 30.6 % (42.0-52.0); HEMOGLOBIN. 9.6 g/dL (14.0-18.0); LYMPHOCYTES % 9.9 % (20.0-50.0); MEAN CORPUSCULAR HEMOGLOBIN 27.3 pg (28.0-32.0); MEAN CORPUSCULAR VOLUME 87.5 fL (80.0-94.0); MEAN PLATELET VOLUME 9.5 fl (7.4-10.4); NEUTROPHILS % 81.4 % (40.0-76.0); PLATELET 367 x1000/uL (130-400); RED CELL DISTRIBUTION WIDTH 19.3 % (11.6-14.6)
[2019-11-29 08:00] VITALS: BP 135/78
[2019-11-29] MEDS: FOLIC ACID/VITAMIN B COMP W-C TABLET PO SCH (08:33)
[2019-11-29] MEDS: ASPIRIN 81MG TABLET PO SCH (08:33)
[2019-11-29] MEDS: CLOPIDOGREL 75MG TABLET PO SCH (08:33)
[2019-11-29] MEDS: SEVELAMER CARBONATE 800 MG TABLET PO SCH ×3 (08:33→17:06)
[2019-11-29] MEDS: AMLODIPINE 10MG TABLET PO SCH (08:33)
[2019-11-29] MEDS: INSULIN LISPRO 100 UNITS/ML SUBCUT SCH ×4 (08:35→20:39)
[2019-11-29] MEDS: HYDROCODONE/ACETAMINOPHEN 10/325MG TABLET PO PRN (10:29)
[2019-11-29] MEDS ORDERED: POTASSIUM CHLORIDE 20MEQ TABLET SR PO NR (10:45)
[2019-11-29] MEDS ORDERED: HYDR-4009 MT (11:30)
[2019-11-29 12:00] VITALS: BP 130/78
[2019-11-29 13:58] VITALS: BP 130/78
[2019-11-29 20:00] VITALS: BP 136/82
[2019-11-29] MEDS ORDERED: LORAZEPAM 2MG/ML CPJ IV PRN (20:30)
[2019-11-29] MEDS: ATORVASTATIN CALCIUM 40MG TABLET PO SCH (21:04)
[2019-11-30] VITALS (7 sets, daily range): BP systolic 133–168; BP diastolic 71–90
[2019-11-30] MEDS: PIPERACILLIN/TAZOBACTAM 2.25 G in DEXTROSE 5% WATER 50 ML IV SCH ×3 (05:10→21:17)
[2019-11-30] MEDS: CLONIDINE 0.1MG TABLET PO SCH ×3 (05:15→21:24)
[2019-11-30] MEDS: BLOOD SUGAR DIAGNOSTIC STRIP TEST SCH ×2 (06:23→20:36)
[2019-11-30] MEDS: INSULIN LISPRO 100 UNITS/ML SUBCUT SCH ×4 (08:50→20:36)
[2019-11-30] MEDS: FOLIC ACID/VITAMIN B COMP W-C TABLET PO SCH (08:51)
[2019-11-30] MEDS: ASPIRIN 81MG TABLET PO SCH (08:51)
[2019-11-30] MEDS: CLOPIDOGREL 75MG TABLET PO SCH (08:51)
[2019-11-30] MEDS: AMLODIPINE 10MG TABLET PO SCH (08:55)
[2019-11-30] MEDS: SEVELAMER CARBONATE 800 MG TABLET PO SCH ×3 (09:19→18:15)
[2019-11-30] MEDS: HYDROMORPHONE HCL/PF 2MG/ML CPJ IV PRN ×3 (13:48→21:31)
[2019-11-30] MEDS: ATORVASTATIN CALCIUM 40MG TABLET PO SCH (21:17)
== END 2019-11-30 22:05 | DRG 853 ==
LOC: ER 15:40 → 6WST 19:00 → EDBEDREQ 19:02 → ENRESERV 20:14 → ER 20:56 → CANBEDREQ 22:04
PROVIDERS: ADMIT Internal Medicine; ATTEND Internal Medicine
PROC: 0KBV0ZZ Excision of Right Foot Muscle, Open Approach (ICD-10-PCS; principal; 2019-11-22)
PROC: 5A1D70Z Performance of Urinary Filtration, Intermittent, Less than 6 Hours Per Day (ICD-10-PCS; 2019-11-22)
PROC: 5A1D70Z Performance of Urinary Filtration, Intermittent, Less than 6 Hours Per Day (ICD-10-PCS; 2019-11-24)
PROC: 02HV33Z Insertion of Infusion Device into Superior Vena Cava, Percutaneous Approach (ICD-10-PCS; 2019-11-25)
PROC: B548ZZA Ultrasonography of Superior Vena Cava, Guidance (ICD-10-PCS; 2019-11-25)
PROC: B5181ZA Fluoroscopy of Superior Vena Cava using Low Osmolar Contrast, Guidance (ICD-10-PCS; 2019-11-25)
PROC: 5A1D70Z Performance of Urinary Filtration, Intermittent, Less than 6 Hours Per Day (ICD-10-PCS; 2019-11-26)
PROC: 0Y6H0Z3 Detachment at Right Lower Leg, Low, Open Approach (ICD-10-PCS; 2019-11-27)
PROC: 5A1D70Z Performance of Urinary Filtration, Intermittent, Less than 6 Hours Per Day (ICD-10-PCS; 2019-11-28)
PROC: 5A1D70Z Performance of Urinary Filtration, Intermittent, Less than 6 Hours Per Day (ICD-10-PCS; 2019-11-30)
DX: A41.9 Sepsis, unspecified organism (principal); N18.6 End stage renal disease; E43 Unspecified severe protein-calorie malnutrition; I12.0 Hypertensive chronic kidney disease with stage 5 chronic kidney disease or end stage renal disease; E87.1 Hypo-osmolality and hyponatremia; E46 Unspecified protein-calorie malnutrition; E11.52 Type 2 diabetes mellitus with diabetic peripheral angiopathy with gangrene; E87.2 Acidosis; I42.9 Cardiomyopathy, unspecified; M86.8X7 Other osteomyelitis, ankle and foot; Z68.1 Body mass index [BMI] 19.9 or less, adult; L89.610 Pressure ulcer of right heel, unstageable; E11.22 Type 2 diabetes mellitus with diabetic chronic kidney disease; G54.6 Phantom limb syndrome with pain; L97.529 Non-pressure chronic ulcer of other part of left foot with unspecified severity; E11.621 Type 2 diabetes mellitus with foot ulcer; E11.69 Type 2 diabetes mellitus with other specified complication; D64.9 Anemia, unspecified; R65.20 Severe sepsis without septic shock; R26.9 Unspecified abnormalities of gait and mobility; E87.8 Other disorders of electrolyte and fluid balance, not elsewhere classified; Z20.828 Contact with and (suspected) exposure to other viral communicable diseases; L08.9 Local infection of the skin and subcutaneous tissue, unspecified; L97.519 Non-pressure chronic ulcer of other part of right foot with unspecified severity; Z89.512 Acquired absence of left leg below knee; Z79.02 Long term (current) use of antithrombotics/antiplatelets; Z89.612 Acquired absence of left leg above knee; Z99.3 Dependence on wheelchair; Z99.2 Dependence on renal dialysis; Z79.899 Other long term (current) drug therapy; Z03.818 Encounter for observation for suspected exposure to other biological agents ruled out
CPT/HCPCS: 36415; 36573; 71045; 73630; 73718; 75635; 76937; 80048; 80053; 80202; 82550; 82553; 82962; 83036; 83605; 84145; 84484; 85025; 85027; 85651; 86140; 86850; 86900; 87070; 87075; 87077; 87186; 88307; 88311; 93005; 93306; 93922; 96365; 97162; 97166; 97530; 99291; C1725; J0690; J1170; J1815; J2060; J2405; J2543; J3370; J3490; J7040; J7060; Q9967; U0003-CS

== ENCOUNTER 2019-11-30 22:05 | Inpatient (IN) | payer MEDICARE, MEDICAID ==
[~2019-11-30] VITALS: Ht 167.6 cm; Wt 52.3 kg
[~2019-11-30 22:05] MED LIST changes: -AMOX1TAB16 MT; -HYDR-4001 MT; -HYDR-4001 PO; +HYDR-4009 MT; -LINE600T14 MT; -SULF1TAB44 MT
[2019-11-30 22:10] VITALS: BP 137/77
[2019-11-30] MEDS ORDERED: LORAZEPAM 1MG TABLET PO PRN (22:45)
[2019-11-30] MEDS ORDERED: DEXTROSE 50% WATER 50ML SYRINGE IV PRN (22:45)
[2019-11-30 23:00] VITALS: BP 137/77
[2019-11-30] MEDS ORDERED: INSULIN LISPRO 100 UNITS/ML SUBCUT SCH (23:00)
[2019-11-30] MEDS ORDERED: BLOOD SUGAR DIAGNOSTIC STRIP TEST SCH (23:00)
[2019-11-30] MEDS: PIPERACILLIN/TAZOBACTAM 2.25 G in DEXTROSE 5% WATER 50 ML IV SCH (23:19)
[2019-12-01] MEDS: HYDROMORPHONE HCL/PF 2MG/ML CPJ IV PRN ×3 (00:14→08:21)
[2019-12-01] MEDS: PIPERACILLIN/TAZOBACTAM 2.25 G in DEXTROSE 5% WATER 50 ML IV SCH ×2 (05:54→14:00)
[2019-12-01] MEDS: CLONIDINE 0.1MG TABLET PO SCH ×3 (05:55→21:52)
[2019-12-01] MEDS: BLOOD SUGAR DIAGNOSTIC STRIP TEST SCH ×4 (05:55→21:52)
[2019-12-01] MEDS: INSULIN LISPRO 100 UNITS/ML SUBCUT SCH ×4 (06:12→22:02)
[2019-12-01 06:13] LABS: CHLORIDE 104 mEq/L (98-107)
[2019-12-01 06:19] LABS: MEAN CORPUSCULAR HEMOGLOBIN 27.3 pg (28.0-32.0); MEAN CORPUSCULAR VOLUME 87.8 fL (80.0-94.0); PLATELET 392 x1000/uL (130-400); RED CELL DISTRIBUTION WIDTH 18.3 % (11.6-14.6)
[2019-12-01 08:12] VITALS: BP 124/69
[2019-12-01] MEDS: FOLIC ACID/VITAMIN B COMP W-C TABLET PO SCH (08:20)
[2019-12-01] MEDS: SEVELAMER CARBONATE 800 MG TABLET PO SCH ×3 (08:20→18:04)
[2019-12-01] MEDS: AMLODIPINE 10MG TABLET PO SCH (09:18)
[2019-12-01] MEDS: CLOPIDOGREL 75MG TABLET PO SCH (09:18)
[2019-12-01] MEDS: ASPIRIN 81MG TABLET PO SCH (09:18)
[2019-12-01] MEDS: HYDROCODONE/ACETAMINOPHEN 10/325MG TABLET PO PRN ×2 (16:07→22:20)
[2019-12-01 20:00] VITALS: BP 157/80
[2019-12-01 21:32] LABS: PLATELET ESTIMATE NORMAL
[2019-12-01] MEDS: ATORVASTATIN CALCIUM 40MG TABLET PO SCH (21:52)
[2019-12-02] MEDS: CLONIDINE 0.1MG TABLET PO SCH ×3 (06:03→22:00)
[2019-12-02] MEDS: BLOOD SUGAR DIAGNOSTIC STRIP TEST SCH ×4 (06:06→21:00)
[2019-12-02] MEDS: INSULIN LISPRO 100 UNITS/ML SUBCUT SCH ×3 (06:14→23:52)
[2019-12-02 06:45] LABS: EOSINOPHILS % 2.7 % (0.0-5.0); HEMATOCRIT. 27.4 % (42.0-52.0); HEMOGLOBIN. 8.6 g/dL (14.0-18.0); LYMPHOCYTES % 11.4 % (20.0-50.0); MEAN CORPUSCULAR HEMOGLOBIN 27.3 pg (28.0-32.0); MEAN CORPUSCULAR VOLUME 86.6 fL (80.0-94.0); MEAN PLATELET VOLUME 9.2 fl (7.4-10.4); NEUTROPHILS % 76.9 % (40.0-76.0); PLATELET 354 x1000/uL (130-400); RED BLOOD CELL COUNT 3.16 mill/uL (4.7-6.1); RED CELL DISTRIBUTION WIDTH 18.3 % (11.6-14.6)
[2019-12-02] MEDS ORDERED: MORPHINE SULFATE 2 MG/ML CPJ (NOT FOR IM USE) IV PRN (07:45)
[2019-12-02 08:00] VITALS: BP 134/77
[2019-12-02] MEDS: FOLIC ACID/VITAMIN B COMP W-C TABLET PO SCH (08:13)
[2019-12-02] MEDS: SEVELAMER CARBONATE 800 MG TABLET PO SCH ×3 (08:13→17:01)
[2019-12-02] MEDS: ASPIRIN 81MG TABLET PO SCH (09:00)
[2019-12-02] MEDS: CLOPIDOGREL 75MG TABLET PO SCH (09:00)
[2019-12-02] MEDS: AMLODIPINE 10MG TABLET PO SCH (10:39)
[2019-12-02] MEDS ORDERED: NA PHOS,M-B/NA PHOS,DI-BA ENEMA 118ML PR NR (16:00)
[2019-12-02] MEDS: HYDROCODONE/ACETAMINOPHEN 10/325MG TABLET PO PRN (17:05)
[2019-12-02] MEDS ORDERED: BISACODYL 10MG SUPP PR NR (18:00)
[2019-12-02 20:00] VITALS: BP 162/88
[2019-12-02 23:10] VITALS: BP 99/65
[2019-12-02] MEDS: ATORVASTATIN CALCIUM 40MG TABLET PO SCH (23:18)
[2019-12-02 23:50] VITALS: BP 96/63
[2019-12-03 00:20] VITALS: BP 102/62
[2019-12-03] MEDS: HYDROCODONE/ACETAMINOPHEN 10/325MG TABLET PO PRN ×6 (00:23→22:00)
[2019-12-03] MEDS: CLONIDINE 0.1MG TABLET PO SCH ×3 (06:00→20:22)
[2019-12-03] MEDS: BLOOD SUGAR DIAGNOSTIC STRIP TEST SCH ×4 (06:06→20:22)
[2019-12-03] MEDS: INSULIN LISPRO 100 UNITS/ML SUBCUT SCH ×4 (06:33→20:22)
[2019-12-03 06:36] LABS: BASOPHILS % 1.3 % (0.0-2.0); EOSINOPHILS % 2.3 % (0.0-5.0); HEMATOCRIT. 29.5 % (42.0-52.0); HEMOGLOBIN. 9.2 g/dL (14.0-18.0); LYMPHOCYTES % 9.6 % (20.0-50.0); MEAN CORPUSCULAR VOLUME 86.7 fL (80.0-94.0); MEAN PLATELET VOLUME 9.9 fl (7.4-10.4); MONOCYTES % 4.9 % (2.0-8.0); NEUTROPHILS % 81.9 % (40.0-76.0); PLATELET 385 x1000/uL (130-400); RED BLOOD CELL COUNT 3.41 mill/uL (4.7-6.1); RED CELL DISTRIBUTION WIDTH 18.3 % (11.6-14.6)
[2019-12-03 06:49] LABS: CHLORIDE 103 mEq/L (98-107)
[2019-12-03 07:03] LABS: PHOSPHORUS 5.4 mg/dL (2.5-4.9)
[2019-12-03 07:04] LABS: LDL CHOLESTEROL 62 mg/dL (5-100); TOTAL IRON BINDING CAPACITY 178 ug/dL (250-450)
[2019-12-03 07:07] LABS: HDL CHOLESTEROL 37 mg/dL (40-59)
[2019-12-03 07:26] LABS: FERRITIN 1596 ng/mL (22-322)
[2019-12-03 08:00] VITALS: BP 118/67
[2019-12-03] MEDS: CLOPIDOGREL 75MG TABLET PO SCH (08:20)
[2019-12-03] MEDS: DOCUSATE SODIUM 100MG CAPSULE PO SCH ×2 (08:20→17:26)
[2019-12-03] MEDS: SEVELAMER CARBONATE 800 MG TABLET PO SCH ×3 (08:20→17:27)
[2019-12-03] MEDS: ASPIRIN 81MG TABLET PO SCH (08:20)
[2019-12-03] MEDS: FOLIC ACID/VITAMIN B COMP W-C TABLET PO SCH (08:20)
[2019-12-03] MEDS: AMLODIPINE 10MG TABLET PO SCH (08:21)
[2019-12-03 08:33] LABS: VITAMIN B12 SERUM > 2000.0 pg/mL (211-911)
[2019-12-03 20:00] VITALS: BP 172/86
[2019-12-03 20:05] VITALS: BP 172/86
[2019-12-03] MEDS: ATORVASTATIN CALCIUM 40MG TABLET PO SCH (20:21)
[2019-12-03 22:00] VITALS: BP 144/79
[2019-12-04] MEDS: INSULIN LISPRO 100 UNITS/ML SUBCUT SCH ×4 (05:36→21:00)
[2019-12-04] MEDS: BLOOD SUGAR DIAGNOSTIC STRIP TEST SCH ×4 (05:36→21:22)
[2019-12-04] MEDS: CLONIDINE 0.1MG TABLET PO SCH ×3 (05:37→22:39)
[2019-12-04] MEDS: HYDROCODONE/ACETAMINOPHEN 10/325MG TABLET PO PRN ×3 (05:38→19:23)
[2019-12-04 07:13] LABS: HEMATOCRIT. 27.9 % (42.0-52.0); HEMOGLOBIN. 8.8 g/dL (14.0-18.0); MEAN CORPUSCULAR HEMOGLOBIN 27.3 pg (28.0-32.0); MEAN CORPUSCULAR VOLUME 86.6 fL (80.0-94.0); MEAN PLATELET VOLUME 9.3 fl (7.4-10.4); PLATELET 331 x1000/uL (130-400); RED BLOOD CELL COUNT 3.22 mill/uL (4.7-6.1); RED CELL DISTRIBUTION WIDTH 17.9 % (11.6-14.6)
[2019-12-04 08:09] VITALS: BP 135/78
[2019-12-04] MEDS: FOLIC ACID/VITAMIN B COMP W-C TABLET PO SCH (08:53)
[2019-12-04] MEDS: DOCUSATE SODIUM 100MG CAPSULE PO SCH ×2 (08:53→17:32)
[2019-12-04] MEDS: SEVELAMER CARBONATE 800 MG TABLET PO SCH ×3 (08:53→17:32)
[2019-12-04] MEDS: CLOPIDOGREL 75MG TABLET PO SCH (09:00)
[2019-12-04] MEDS: AMLODIPINE 10MG TABLET PO SCH (09:00)
[2019-12-04] MEDS: ASPIRIN 81MG TABLET PO SCH (09:00)
[2019-12-04 12:52] LABS: PLATELET ESTIMATE NORMAL
[2019-12-04 20:00] VITALS: BP_SYST 131; BP_SYST 144; BP_DIAS 70; BP_DIAS 79
[2019-12-04 21:20] VITALS: BP 131/80
[2019-12-04] MEDS: ATORVASTATIN CALCIUM 40MG TABLET PO SCH (21:22)
[2019-12-04] MEDS: EPOETIN ALFA 4000UNITS/ML VIAL SUBCUT SCH (21:22)
[2019-12-05 00:01] VITALS: BP 158/48
[2019-12-05] MEDS: HYDROCODONE/ACETAMINOPHEN 10/325MG TABLET PO PRN ×3 (03:37→21:41)
[2019-12-05] MEDS: INSULIN LISPRO 100 UNITS/ML SUBCUT SCH ×4 (06:12→21:51)
[2019-12-05] MEDS: BLOOD SUGAR DIAGNOSTIC STRIP TEST SCH ×4 (06:12→21:46)
[2019-12-05] MEDS: CLONIDINE 0.1MG TABLET PO SCH ×3 (06:12→21:40)
[2019-12-05 06:42] VITALS: BP 160/44
[2019-12-05] MEDS: ASPIRIN 81MG TABLET PO SCH (08:15)
[2019-12-05 08:16] VITALS: BP 138/86
[2019-12-05] MEDS: DOCUSATE SODIUM 100MG CAPSULE PO SCH ×2 (08:16→17:30)
[2019-12-05] MEDS: FOLIC ACID/VITAMIN B COMP W-C TABLET PO SCH (08:16)
[2019-12-05] MEDS: AMLODIPINE 10MG TABLET PO SCH (08:16)
[2019-12-05] MEDS: CLOPIDOGREL 75MG TABLET PO SCH (08:16)
[2019-12-05] MEDS: SEVELAMER CARBONATE 800 MG TABLET PO SCH ×3 (08:16→17:30)
[2019-12-05] MEDS: MORPHINE SULFATE 2 MG/ML CPJ (NOT FOR IM USE) IV SCH ×2 (16:01→16:18)
[2019-12-05] MEDS: LACTULOSE 20G/30ML UDC PO PRN (18:14)
[2019-12-05 20:00] VITALS: BP 165/95
[2019-12-05] MEDS: ATORVASTATIN CALCIUM 40MG TABLET PO SCH (21:40)
[2019-12-06] MEDS: HYDROCODONE/ACETAMINOPHEN 10/325MG TABLET PO PRN (04:09)
[2019-12-06] MEDS: BLOOD SUGAR DIAGNOSTIC STRIP TEST SCH ×4 (05:47→21:14)
[2019-12-06] MEDS: INSULIN LISPRO 100 UNITS/ML SUBCUT SCH ×4 (06:02→21:00)
[2019-12-06] MEDS: CLONIDINE 0.1MG TABLET PO SCH ×3 (06:25→21:14)
[2019-12-06 08:00] VITALS: BP 156/83
[2019-12-06] MEDS: CLOPIDOGREL 75MG TABLET PO SCH (09:19)
[2019-12-06] MEDS: FOLIC ACID/VITAMIN B COMP W-C TABLET PO SCH (09:19)
[2019-12-06] MEDS: ASPIRIN 81MG TABLET PO SCH (09:19)
[2019-12-06] MEDS: AMLODIPINE 10MG TABLET PO SCH (09:20)
[2019-12-06] MEDS: SEVELAMER CARBONATE 800 MG TABLET PO SCH ×3 (09:20→17:24)
[2019-12-06] MEDS: DOCUSATE SODIUM 100MG CAPSULE PO SCH ×2 (09:20→17:24)
[2019-12-06] MEDS: LACTULOSE 20G/30ML UDC PO PRN (15:01)
[2019-12-06] MEDS ORDERED: LACTULOSE 20G/30ML UDC PO SCH (18:00)
[2019-12-06 20:00] VITALS: BP 166/101
[2019-12-06] MEDS: LOSARTAN POTASSIUM 50 MG TABLET PO SCH (21:14)
[2019-12-06] MEDS: ATORVASTATIN CALCIUM 40MG TABLET PO SCH (21:14)
[2019-12-06] MEDS: LACTULOSE 20G/30ML UDC PO SCH ×2 (21:14→23:00)
[2019-12-07] MEDS: HYDROCODONE/ACETAMINOPHEN 10/325MG TABLET PO PRN ×3 (02:53→19:17)
[2019-12-07] MEDS: LACTULOSE 20G/30ML UDC PO SCH (06:17)
[2019-12-07] MEDS: CLONIDINE 0.1MG TABLET PO SCH ×3 (06:18→21:27)
[2019-12-07 06:53] LABS: BASOPHILS % 1.3 % (0.0-2.0); EOSINOPHILS % 3.1 % (0.0-5.0); HEMATOCRIT. 27.8 % (42.0-52.0); LYMPHOCYTES % 13.4 % (20.0-50.0); MEAN CORPUSCULAR HEMOGLOBIN 27.6 pg (28.0-32.0); MEAN CORPUSCULAR VOLUME 85.2 fL (80.0-94.0); MEAN PLATELET VOLUME 9.3 fl (7.4-10.4); MONOCYTES % 7.5 % (2.0-8.0); NEUTROPHILS % 74.7 % (40.0-76.0); PLATELET 288 x1000/uL (130-400); RED BLOOD CELL COUNT 3.27 mill/uL (4.7-6.1); RED CELL DISTRIBUTION WIDTH 17.7 % (11.6-14.6)
[2019-12-07] MEDS: BLOOD SUGAR DIAGNOSTIC STRIP TEST SCH ×4 (07:01→21:20)
[2019-12-07 08:00] VITALS: BP 163/94
[2019-12-07] MEDS: SEVELAMER CARBONATE 800 MG TABLET PO SCH ×3 (08:43→17:39)
[2019-12-07] MEDS: CLOPIDOGREL 75MG TABLET PO SCH (08:43)
[2019-12-07] MEDS: ASPIRIN 81MG TABLET PO SCH (08:43)
[2019-12-07] MEDS: LOSARTAN POTASSIUM 50 MG TABLET PO SCH ×2 (08:43→21:19)
[2019-12-07] MEDS: FOLIC ACID/VITAMIN B COMP W-C TABLET PO SCH (08:43)
[2019-12-07] MEDS: AMLODIPINE 10MG TABLET PO SCH (08:44)
[2019-12-07] MEDS: INSULIN LISPRO 100 UNITS/ML SUBCUT SCH ×4 (08:44→21:00)
[2019-12-07] MEDS: DOCUSATE SODIUM 100MG CAPSULE PO SCH ×2 (08:44→17:39)
[2019-12-07] MEDS ORDERED: SODIUM POLYSTYRENE SULFONATE 15 G/60 ML BOT PO NR (12:30)
[2019-12-07 20:08] VITALS: BP 151/89
[2019-12-07] MEDS: ATORVASTATIN CALCIUM 40MG TABLET PO SCH (21:19)
[2019-12-07] MEDS: EPOETIN ALFA 4000UNITS/ML VIAL SUBCUT SCH (21:19)
[2019-12-08] MEDS: HYDROCODONE/ACETAMINOPHEN 10/325MG TABLET PO PRN ×3 (05:34→22:09)
[2019-12-08] MEDS: BLOOD SUGAR DIAGNOSTIC STRIP TEST SCH ×4 (05:34→21:42)
[2019-12-08 06:08] LABS: BASOPHILS % 1.1 % (0.0-2.0); HEMATOCRIT. 27.7 % (42.0-52.0); HEMOGLOBIN. 8.9 g/dL (14.0-18.0); LYMPHOCYTES % 12.5 % (20.0-50.0); MEAN CORPUSCULAR HEMOGLOBIN 27.4 pg (28.0-32.0); MEAN CORPUSCULAR VOLUME 85.3 fL (80.0-94.0); MEAN PLATELET VOLUME 9.4 fl (7.4-10.4); MONOCYTES % 7.3 % (2.0-8.0); NEUTROPHILS % 76.1 % (40.0-76.0); PLATELET 283 x1000/uL (130-400); RED BLOOD CELL COUNT 3.25 mill/uL (4.7-6.1); RED CELL DISTRIBUTION WIDTH 18.3 % (11.6-14.6)
[2019-12-08] MEDS: INSULIN LISPRO 100 UNITS/ML SUBCUT SCH ×4 (06:18→21:00)
[2019-12-08] MEDS: CLONIDINE 0.1MG TABLET PO SCH ×2 (06:18→15:01)
[2019-12-08 08:25] VITALS: BP 173/96
[2019-12-08] MEDS ORDERED: AMLO10TA80 PO (08:53)
[2019-12-08] MEDS ORDERED: CLOP75TA4 MT (08:53)
[2019-12-08] MEDS ORDERED: SEVE800T8 PO (08:53)
[2019-12-08] MEDS ORDERED: CLON0.1T14 PO (08:53)
[2019-12-08] MEDS ORDERED: ATOR40TA70 MT (08:53)
[2019-12-08] MEDS ORDERED: ASPI-1497 MT (08:53)
[2019-12-08] MEDS ORDERED: LOSA50TA3 PO (08:53)
[2019-12-08] MEDS ORDERED: NEPVIT MT (08:53)
[2019-12-08] MEDS: SEVELAMER CARBONATE 800 MG TABLET PO SCH ×3 (09:02→17:35)
[2019-12-08] MEDS: FOLIC ACID/VITAMIN B COMP W-C TABLET PO SCH (09:02)
[2019-12-08] MEDS: LOSARTAN POTASSIUM 50 MG TABLET PO SCH ×2 (09:03→21:34)
[2019-12-08] MEDS: AMLODIPINE 10MG TABLET PO SCH (09:03)
[2019-12-08] MEDS: CLOPIDOGREL 75MG TABLET PO SCH (09:03)
[2019-12-08] MEDS: ASPIRIN 81MG TABLET PO SCH (09:03)
[2019-12-08] MEDS: DOCUSATE SODIUM 100MG CAPSULE PO SCH ×2 (09:03→17:00)
[2019-12-08] MEDS ORDERED: CLONIDINE 0.1MG TABLET PO NR (17:30)
[2019-12-08 20:00] VITALS: BP 124/82
[2019-12-08] MEDS: ATORVASTATIN CALCIUM 40MG TABLET PO SCH (21:35)
[2019-12-08 22:00] VITALS: BP 145/94
[2019-12-08] MEDS: CLONIDINE 0.2MG TABLET PO SCH (22:16)
[2019-12-09 05:30] VITALS: BP 160/84
[2019-12-09] MEDS: CLONIDINE 0.2MG TABLET PO SCH (05:51)
[2019-12-09] MEDS: BLOOD SUGAR DIAGNOSTIC STRIP TEST SCH ×2 (05:54→11:23)
[2019-12-09 07:04] LABS: BASOPHILS % 1.4 % (0.0-2.0); EOSINOPHILS % 4.5 % (0.0-5.0); HEMATOCRIT. 28.2 % (42.0-52.0); HEMOGLOBIN. 9.2 g/dL (14.0-18.0); LYMPHOCYTES % 15.5 % (20.0-50.0); MEAN CORPUSCULAR HEMOGLOBIN 27.9 pg (28.0-32.0); MEAN CORPUSCULAR VOLUME 85.3 fL (80.0-94.0); MEAN PLATELET VOLUME 9.2 fl (7.4-10.4); MONOCYTES % 8.2 % (2.0-8.0); NEUTROPHILS % 70.4 % (40.0-76.0); PLATELET 274 x1000/uL (130-400); RED CELL DISTRIBUTION WIDTH 18.3 % (11.6-14.6)
[2019-12-09] MEDS: INSULIN LISPRO 100 UNITS/ML SUBCUT SCH ×2 (07:20→11:23)
[2019-12-09 08:00] VITALS: BP 168/89
[2019-12-09 08:29] VITALS: BP 158/92
[2019-12-09] MEDS: SEVELAMER CARBONATE 800 MG TABLET PO SCH ×2 (08:31→12:21)
[2019-12-09] MEDS: CLOPIDOGREL 75MG TABLET PO SCH (08:31)
[2019-12-09] MEDS: FOLIC ACID/VITAMIN B COMP W-C TABLET PO SCH (08:31)
[2019-12-09] MEDS: AMLODIPINE 10MG TABLET PO SCH (08:31)
[2019-12-09] MEDS: DOCUSATE SODIUM 100MG CAPSULE PO SCH (08:31)
[2019-12-09] MEDS: ASPIRIN 81MG TABLET PO SCH (08:31)
[2019-12-09] MEDS: LOSARTAN POTASSIUM 50 MG TABLET PO SCH (08:31)
[2019-12-09 09:11] VITALS: BP 158/92
[2019-12-11 04:07] LABS: 25-HYDROXY VITAMIN D3 7.7 ng/mL (.)
== END 2019-12-09 13:10 | disposition home health service (06) | DRG 299 ==
PROVIDERS: ADMIT Physical Medicine & Rehabilitation Spinal Cord Injury Medicine; ATTEND Internal Medicine
PROC: 5A1D70Z Performance of Urinary Filtration, Intermittent, Less than 6 Hours Per Day (ICD-10-PCS; 2019-12-01)
PROC: 5A1D70Z Performance of Urinary Filtration, Intermittent, Less than 6 Hours Per Day (ICD-10-PCS; principal; 2019-12-04)
PROC: 5A1D70Z Performance of Urinary Filtration, Intermittent, Less than 6 Hours Per Day (ICD-10-PCS; 2019-12-07)
PROC: 5A1D70Z Performance of Urinary Filtration, Intermittent, Less than 6 Hours Per Day (ICD-10-PCS; 2019-12-09)
DX: E11.52 Type 2 diabetes mellitus with diabetic peripheral angiopathy with gangrene (principal); E43 Unspecified severe protein-calorie malnutrition; A41.9 Sepsis, unspecified organism; N18.6 End stage renal disease; E87.1 Hypo-osmolality and hyponatremia; I12.0 Hypertensive chronic kidney disease with stage 5 chronic kidney disease or end stage renal disease; I96 Gangrene, not elsewhere classified; M86.8X7 Other osteomyelitis, ankle and foot; E11.69 Type 2 diabetes mellitus with other specified complication; D64.9 Anemia, unspecified; E11.22 Type 2 diabetes mellitus with diabetic chronic kidney disease; E87.6 Hypokalemia; I25.10 Atherosclerotic heart disease of native coronary artery without angina pectoris; G54.6 Phantom limb syndrome with pain; D72.810 Lymphocytopenia; E11.621 Type 2 diabetes mellitus with foot ulcer; L97.519 Non-pressure chronic ulcer of other part of right foot with unspecified severity; E78.5 Hyperlipidemia, unspecified; R53.81 Other malaise; R26.9 Unspecified abnormalities of gait and mobility; E11.42 Type 2 diabetes mellitus with diabetic polyneuropathy; N48.29 Other inflammatory disorders of penis; Z60.2 Problems related to living alone; Z89.511 Acquired absence of right leg below knee; Z89.612 Acquired absence of left leg above knee; Z99.2 Dependence on renal dialysis; Z79.899 Other long term (current) drug therapy; Z87.891 Personal history of nicotine dependence; Z79.4 Long term (current) use of insulin
CPT/HCPCS: 36415; 80048; 80053; 80061; 82306; 82607; 82728; 82746; 82962; 83036; 83540; 83550; 83735; 84100; 84134; 84443; 85025; 92523; 92610; 93970; 97110; 97162; 97166; 97530; 97535; J0885; J1170; J1815; J2270; J2543; J7060; L1830

== ENCOUNTER 2019-12-20 00:12 | Inpatient (IN) | payer MEDICARE, MEDICAID ==
[~2019-12-20] VITALS: Ht 152.4 cm; Wt 50.3 kg
[~2019-12-20 00:12] MED LIST changes: +CLON0.1T14 PO; -HYDR-4134 PO; -LISI40TA4 PO; +LOSA50TA3 PO; -SODI473S22 TOP
[2019-12-20 01:15] LABS: BASOPHILS % 0.7 % (0.0-2.0); EOSINOPHILS % 3.5 % (0.0-5.0); HEMATOCRIT. 24.7 % (42.0-52.0); HEMOGLOBIN. 8.1 g/dL (14.0-18.0); LYMPHOCYTES % 8.2 % (20.0-50.0); MEAN CORPUSCULAR HEMOGLOBIN 28.4 pg (28.0-32.0); MEAN CORPUSCULAR VOLUME 86.1 fL (80.0-94.0); MEAN PLATELET VOLUME 8.7 fl (7.4-10.4); MONOCYTES % 9.7 % (2.0-8.0); NEUTROPHILS % 77.9 % (40.0-76.0); PLATELET 199 x1000/uL (130-400); RED BLOOD CELL COUNT 2.87 mill/uL (4.7-6.1); RED CELL DISTRIBUTION WIDTH 20.5 % (11.6-14.6)
[2019-12-20 01:25] LABS: CHLORIDE 95 mEq/L (98-107)
[2019-12-20] MEDS ORDERED: KETOROLAC 15MG/ML VIAL IV NR (01:45)
[2019-12-20] MEDS ORDERED: CLONIDINE 0.2MG TABLET PO PRN (05:00)
[2019-12-20] MEDS ORDERED: DOCUSATE SODIUM 250MG CAPSULE PO PRN (05:00)
[2019-12-20 10:15] VITALS: BP 188/40
[2019-12-20] MEDS ORDERED: MAGNESIUM/ALUMINUM HYDROXIDE/SIMETHICONE 30ML UDC PO PRN (11:45)
[2019-12-20] MEDS ORDERED: DEXTROSE 50% WATER 50ML SYRINGE IV PRN ×2 (11:45)
[2019-12-20] MEDS ORDERED: CLONIDINE 0.1MG TABLET PO PRN (11:45)
[2019-12-20] MEDS ORDERED: HYDROCODONE/ACETAMINOPHEN 5/325MG TABLET PO PRN (11:45)
[2019-12-20] MEDS ORDERED: BLOOD SUGAR DIAGNOSTIC STRIP TEST SCH (12:20)
[2019-12-20 12:24] VITALS: BP 177/58
[2019-12-20 12:30] VITALS: BP 176/58
[2019-12-20] MEDS: BLOOD SUGAR DIAGNOSTIC STRIP TEST SCH ×3 (12:30→21:01)
[2019-12-20] MEDS: INSULIN LISPRO 100 UNITS/ML SUBCUT SCH ×3 (12:50→21:00)
[2019-12-20] MEDS ORDERED: NA PHOS,M-B/NA PHOS,DI-BA ENEMA 118ML PR PRN (13:00)
[2019-12-20] MEDS: AMLODIPINE 10MG TABLET PO SCH (14:36)
[2019-12-20 16:24] VITALS: BP 150/42
[2019-12-20] MEDS ORDERED: HEPARIN SODIUM 1,000 UNIT/1ML VIAL IV NR (17:49)
[2019-12-20] MEDS: DOCUSATE SODIUM 100MG CAPSULE PO SCH (17:53)
[2019-12-20] MEDS: SEVELAMER CARBONATE 800 MG TABLET PO SCH (18:00)
[2019-12-20 20:00] VITALS: BP 167/84
[2019-12-20] MEDS: LOSARTAN POTASSIUM 50 MG TABLET PO SCH (21:02)
[2019-12-20] MEDS: ATORVASTATIN CALCIUM 40MG TABLET PO SCH (21:02)
[2019-12-20] MEDS: CLONIDINE 0.1MG TABLET PO SCH (21:02)
[2019-12-20] MEDS: EPOETIN ALFA 10000UNITS/ML VIAL SUBCUT SCH (22:33)
[2019-12-21] VITALS: BP 173/90
[2019-12-21] MEDS ORDERED: CLONIDINE 0.1MG TABLET PO PRN (01:15)
[2019-12-21] MEDS: ACETAMINOPHEN 325MG TABLET PO PRN (01:21)
[2019-12-21 04:00] VITALS: BP 178/85
[2019-12-21] MEDS: BLOOD SUGAR DIAGNOSTIC STRIP TEST SCH ×4 (06:27→20:55)
[2019-12-21] MEDS: CLONIDINE 0.1MG TABLET PO SCH ×3 (06:31→20:55)
[2019-12-21] MEDS: INSULIN LISPRO 100 UNITS/ML SUBCUT SCH ×4 (07:37→20:55)
[2019-12-21] MEDS: PANTOPRAZOLE SODIUM 40 MG/VIAL IV SCH (07:54)
[2019-12-21 08:05] VITALS: BP 162/86
[2019-12-21] MEDS: AMLODIPINE 10MG TABLET PO SCH (08:27)
[2019-12-21] MEDS: DOCUSATE SODIUM 100MG CAPSULE PO SCH ×2 (08:28→17:28)
[2019-12-21] MEDS: FOLIC ACID/VITAMIN B COMP W-C TABLET PO SCH (08:28)
[2019-12-21] MEDS: ASPIRIN 81MG EC TABLET PO SCH (08:29)
[2019-12-21] MEDS: LOSARTAN POTASSIUM 50 MG TABLET PO SCH ×2 (08:29→20:54)
[2019-12-21] MEDS: CLOPIDOGREL 75MG TABLET PO SCH (08:29)
[2019-12-21] MEDS: SEVELAMER CARBONATE 800 MG TABLET PO SCH ×3 (08:29→17:28)
[2019-12-21 08:52] LABS: BASOPHILS % 0.8 % (0.0-2.0); HEMOGLOBIN. 8.4 g/dL (14.0-18.0); LYMPHOCYTES % 9.4 % (20.0-50.0); MEAN CORPUSCULAR HEMOGLOBIN 27.6 pg (28.0-32.0); MEAN CORPUSCULAR VOLUME 85.5 fL (80.0-94.0); NEUTROPHILS % 75.8 % (40.0-76.0); PLATELET 197 x1000/uL (130-400); RED BLOOD CELL COUNT 3.04 mill/uL (4.7-6.1); RED CELL DISTRIBUTION WIDTH 20.3 % (11.6-14.6)
[2019-12-21 09:05] LABS: PHOSPHORUS 3.3 mg/dL (2.5-4.9)
[2019-12-21 12:01] VITALS: BP 150/51
[2019-12-21 16:20] VITALS: BP 157/92
[2019-12-21 20:00] VITALS: BP 167/63
[2019-12-21] MEDS: ATORVASTATIN CALCIUM 40MG TABLET PO SCH (20:55)
[2019-12-21] MEDS: HYDROCODONE/ACETAMINOPHEN 10/325MG TABLET PO PRN (23:36)
[2019-12-22] VITALS: BP 165/81
[2019-12-22 04:00] VITALS: BP 172/87
[2019-12-22] MEDS: CLONIDINE 0.1MG TABLET PO SCH ×4 (05:59→20:58)
[2019-12-22 06:59] LABS: BASOPHILS % 0.8 % (0.0-2.0); EOSINOPHILS % 5.6 % (0.0-5.0); HEMATOCRIT. 25.8 % (42.0-52.0); HEMOGLOBIN. 8.4 g/dL (14.0-18.0); LYMPHOCYTES % 13.9 % (20.0-50.0); MEAN CORPUSCULAR HEMOGLOBIN 27.5 pg (28.0-32.0); MEAN CORPUSCULAR VOLUME 84.9 fL (80.0-94.0); MONOCYTES % 11.7 % (2.0-8.0); PLATELET 232 x1000/uL (130-400); RED BLOOD CELL COUNT 3.04 mill/uL (4.7-6.1)
[2019-12-22] MEDS: BLOOD SUGAR DIAGNOSTIC STRIP TEST SCH ×4 (07:20→20:58)
[2019-12-22] MEDS: INSULIN LISPRO 100 UNITS/ML SUBCUT SCH ×4 (07:50→21:07)
[2019-12-22 08:00] VITALS: BP 175/85
[2019-12-22] MEDS: PANTOPRAZOLE SODIUM 40 MG/VIAL IV SCH (09:15)
[2019-12-22] MEDS: SEVELAMER CARBONATE 800 MG TABLET PO SCH ×3 (09:15→18:15)
[2019-12-22] MEDS: DOCUSATE SODIUM 100MG CAPSULE PO SCH ×2 (09:16→16:27)
[2019-12-22] MEDS: AMLODIPINE 10MG TABLET PO SCH (09:16)
[2019-12-22] MEDS: ASPIRIN 81MG EC TABLET PO SCH (09:16)
[2019-12-22] MEDS: LOSARTAN POTASSIUM 50 MG TABLET PO SCH ×2 (09:16→20:58)
[2019-12-22] MEDS: FOLIC ACID/VITAMIN B COMP W-C TABLET PO SCH (09:16)
[2019-12-22] MEDS: CLOPIDOGREL 75MG TABLET PO SCH (09:16)
[2019-12-22 12:00] VITALS: BP 180/71
[2019-12-22] MEDS: ACETAMINOPHEN 325MG TABLET PO PRN (13:18)
[2019-12-22 16:00] VITALS: BP_SYST 106; BP_SYST 125; BP_DIAS 77; BP_DIAS 80
[2019-12-22 20:00] VITALS: BP 151/90
[2019-12-22] MEDS: ATORVASTATIN CALCIUM 40MG TABLET PO SCH (20:57)
[2019-12-22] MEDS: HYDROCODONE/ACETAMINOPHEN 10/325MG TABLET PO PRN (20:57)
[2019-12-22] MEDS: EPOETIN ALFA 10000UNITS/ML VIAL SUBCUT SCH (20:58)
[2019-12-23] VITALS: BP 152/83
[2019-12-23 04:00] VITALS: BP 160/61
[2019-12-23] MEDS: CLONIDINE 0.1MG TABLET PO SCH ×2 (05:32→13:38)
[2019-12-23] MEDS: HYDROCODONE/ACETAMINOPHEN 10/325MG TABLET PO PRN (06:29)
[2019-12-23] MEDS: BLOOD SUGAR DIAGNOSTIC STRIP TEST SCH ×2 (06:29→12:50)
[2019-12-23 07:23] LABS: BASOPHILS % 0.4 % (0.0-2.0); EOSINOPHILS % 4.4 % (0.0-5.0); HEMATOCRIT. 27.2 % (42.0-52.0); HEMOGLOBIN. 8.8 g/dL (14.0-18.0); LYMPHOCYTES % 13.1 % (20.0-50.0); MEAN CORPUSCULAR HEMOGLOBIN 27.2 pg (28.0-32.0); MEAN CORPUSCULAR VOLUME 84.7 fL (80.0-94.0); MONOCYTES % 11.1 % (2.0-8.0); PLATELET 242 x1000/uL (130-400); RED BLOOD CELL COUNT 3.22 mill/uL (4.7-6.1); RED CELL DISTRIBUTION WIDTH 20.2 % (11.6-14.6)
[2019-12-23] MEDS: INSULIN LISPRO 100 UNITS/ML SUBCUT SCH ×2 (07:35→12:50)
[2019-12-23 08:00] VITALS: BP 152/86
[2019-12-23 08:05] VITALS: BP 151/86
[2019-12-23] MEDS: SEVELAMER CARBONATE 800 MG TABLET PO SCH ×2 (08:33→12:50)
[2019-12-23] MEDS: AMLODIPINE 10MG TABLET PO SCH (08:34)
[2019-12-23] MEDS: FOLIC ACID/VITAMIN B COMP W-C TABLET PO SCH (08:34)
[2019-12-23] MEDS: DOCUSATE SODIUM 100MG CAPSULE PO SCH (08:34)
[2019-12-23] MEDS: ASPIRIN 81MG EC TABLET PO SCH (08:34)
[2019-12-23] MEDS: CLOPIDOGREL 75MG TABLET PO SCH (08:34)
[2019-12-23] MEDS: LOSARTAN POTASSIUM 50 MG TABLET PO SCH (08:34)
[2019-12-23] MEDS ORDERED: PANTOPRAZOLE 40MG DR TABLET PO SCH (09:00)
[2019-12-23] MEDS ORDERED: CEPH-569 MT (11:05)
[2019-12-23 12:00] VITALS: BP 180/64
[2019-12-23 13:22] VITALS: BP 182/64
== END 2019-12-23 15:00 | disposition home health service (06) | DRG 391 ==
LOC: ER 00:18 → 6WST 03:48 → EDBEDREQ 03:53 → EDBEDREQTM 03:53 → ENRESERV 08:24 → ER 09:50
PROVIDERS: ADMIT Internal Medicine; ATTEND Internal Medicine
PROC: 5A1D70Z Performance of Urinary Filtration, Intermittent, Less than 6 Hours Per Day (ICD-10-PCS; principal; 2019-12-20)
PROC: 5A1D70Z Performance of Urinary Filtration, Intermittent, Less than 6 Hours Per Day (ICD-10-PCS; 2019-12-22)
DX: K59.00 Constipation, unspecified (principal); E43 Unspecified severe protein-calorie malnutrition; N18.6 End stage renal disease; E87.1 Hypo-osmolality and hyponatremia; I12.0 Hypertensive chronic kidney disease with stage 5 chronic kidney disease or end stage renal disease; E87.8 Other disorders of electrolyte and fluid balance, not elsewhere classified; D63.8 Anemia in other chronic diseases classified elsewhere; E11.22 Type 2 diabetes mellitus with diabetic chronic kidney disease; E11.65 Type 2 diabetes mellitus with hyperglycemia; E11.51 Type 2 diabetes mellitus with diabetic peripheral angiopathy without gangrene; R74.8 Abnormal levels of other serum enzymes; I16.0 Hypertensive urgency; Z89.511 Acquired absence of right leg below knee; Z99.2 Dependence on renal dialysis; Z89.612 Acquired absence of left leg above knee; Z68.21 Body mass index [BMI] 21.0-21.9, adult
CPT/HCPCS: 36415; 71045; 74018; 80048; 80053; 80061; 82962; 83036; 83605; 83735; 84100; 84443; 85025; 87070; 87077; 87186; 93970; 97110; 97162; 97166; 97530; 99285; C9113; J0885; J1644; J1815; J1885

== ENCOUNTER 2019-12-25 21:29 | Inpatient (IN) | payer MEDICARE, MEDICAID ==
[~2019-12-25] VITALS: Ht 162.6 cm; Wt 59.0 kg
[~2019-12-25 21:29] MED LIST changes: +CEPH-569 MT
[2019-12-26 00:13] LABS: EOSINOPHILS % 3.7 % (0.0-5.0); HEMATOCRIT. 27.2 % (42.0-52.0); HEMOGLOBIN. 8.9 g/dL (14.0-18.0); LYMPHOCYTES % 12.5 % (20.0-50.0); MEAN CORPUSCULAR HEMOGLOBIN 27.7 pg (28.0-32.0); MEAN CORPUSCULAR VOLUME 84.9 fL (80.0-94.0); MEAN PLATELET VOLUME 8.9 fl (7.4-10.4); MONOCYTES % 7.9 % (2.0-8.0); NEUTROPHILS % 74.9 % (40.0-76.0); PLATELET 388 x1000/uL (130-400); RED CELL DISTRIBUTION WIDTH 20.3 % (11.6-14.6)
[2019-12-26 00:19] LABS: CHLORIDE 93 mEq/L (98-107)
[2019-12-26 00:21] LABS: INR 1.2; PROTHROMBIN TIME 12.4 sec (9.6-11.0)
[2019-12-26] MEDS ORDERED: ONDANSETRON HCL 4MG/2ML INJ IV STA (04:09)
[2019-12-26] MEDS ORDERED: MORPHINE SULFATE 4 MG/ML CPJ (NOT FOR IM USE) IV STA (04:09)
[2019-12-26] MEDS ORDERED: PIPERACILLIN/TAZOBACTAM 3.375GM/50ML PREMIX IV SCH (04:15)
[2019-12-26] MEDS ORDERED: ONDANSETRON HCL 4MG/2ML INJ IV PRN (06:15)
[2019-12-26] MEDS ORDERED: NITROGLYCERIN 0.4MG TABLET SL SL PRN (06:15)
[2019-12-26] MEDS ORDERED: MAGNESIUM/ALUMINUM HYDROXIDE/SIMETHICONE 30ML UDC PO PRN (06:15)
[2019-12-26] MEDS ORDERED: DOCUSATE SODIUM 100MG CAPSULE PO PRN (06:15)
[2019-12-26] MEDS ORDERED: ENOXAPARIN 40MG/0.4ML SYR SUBCUT SCH (06:15)
[2019-12-26] MEDS ORDERED: GUAIFENESIN 200MG/10ML SUGAR FREE UDC PO PRN (06:15)
[2019-12-26] MEDS ORDERED: ACETAMINOPHEN 325MG TABLET PO PRN ×2 (06:15)
[2019-12-26] MEDS ORDERED: IPRATROPIUM/ALBUTEROL 0.5-3(2.5)MG/3ML NEB NEB PRN (06:15)
[2019-12-26] MEDS ORDERED: PIPERACILLIN/TAZ 3.375G PREMIX 50 ML IV SCH (06:15)
[2019-12-26] MEDS ORDERED: TRAMADOL 50MG TABLET PO PRN (06:15)
[2019-12-26] MEDS ORDERED: DIPHENHYDRAMINE 50MG/ML VIAL IV PRN (06:15)
[2019-12-26] MEDS: MORPHINE SULFATE 2 MG/ML CPJ (NOT FOR IM USE) IV PRN ×3 (07:43→21:27)
[2019-12-26 08:00] VITALS: BP 145/82
[2019-12-26] MEDS: CLONIDINE 0.1MG TABLET PO PRN (08:48)
[2019-12-26] MEDS: ENOXAPARIN 30MG/0.3ML SYR SUBCUT SCH (09:00)
[2019-12-26] MEDS: FAMOTIDINE 20MG TABLET PO SCH (09:50)
[2019-12-26] MEDS: ZINC SULFATE 220 MG ( 50 ) CAPSULE PO SCH (09:50)
[2019-12-26] MEDS: SEVELAMER CARBONATE 800 MG TABLET PO SCH ×3 (09:50→18:06)
[2019-12-26] MEDS: ASCORBIC ACID 500 MG TABLET PO SCH ×2 (09:50→21:27)
[2019-12-26] MEDS: AMLODIPINE 10MG TABLET PO SCH (09:51)
[2019-12-26] MEDS: CLONIDINE 0.1MG TABLET PO SCH ×2 (10:00→18:06)
[2019-12-26] MEDS ORDERED: VANCOMYCIN 1250MG in DEXTROSE 5% WATER 250ML IV NR (10:30)
[2019-12-26 11:47] VITALS: BP 145/82
[2019-12-26 12:00] VITALS: BP 121/61
[2019-12-26 16:00] VITALS: BP 158/85
[2019-12-26] MEDS: HYDRALAZINE HCL 50MG TABLET PO SCH ×2 (16:23→21:27)
[2019-12-26] MEDS: PIPERACILLIN/TAZOBACTAM 2.25 G in DEXTROSE 5% WATER 50 ML IV SCH ×2 (16:23→21:27)
[2019-12-26 20:00] VITALS: BP 155/82
[2019-12-27] VITALS (7 sets, daily range): BP systolic 111–164; BP diastolic 70–91
[2019-12-27] MEDS: CLONIDINE 0.1MG TABLET PO SCH ×3 (01:59→18:33)
[2019-12-27] MEDS: PIPERACILLIN/TAZOBACTAM 2.25 G in DEXTROSE 5% WATER 50 ML IV SCH ×3 (05:12→21:01)
[2019-12-27] MEDS: HYDRALAZINE HCL 50MG TABLET PO SCH ×3 (05:13→21:01)
[2019-12-27 07:01] LABS: BASOPHILS % 0.9 % (0.0-2.0); EOSINOPHILS % 5.7 % (0.0-5.0); HEMATOCRIT. 26.2 % (42.0-52.0); HEMOGLOBIN. 8.6 g/dL (14.0-18.0); LYMPHOCYTES % 9.3 % (20.0-50.0); MEAN CORPUSCULAR HEMOGLOBIN 27.8 pg (28.0-32.0); MEAN CORPUSCULAR VOLUME 85.1 fL (80.0-94.0); MEAN PLATELET VOLUME 8.7 fl (7.4-10.4); MONOCYTES % 8.1 % (2.0-8.0); PLATELET 334 x1000/uL (130-400); RED BLOOD CELL COUNT 3.08 mill/uL (4.7-6.1); RED CELL DISTRIBUTION WIDTH 20.4 % (11.6-14.6)
[2019-12-27 07:23] LABS: CHLORIDE 93 mEq/L (98-107)
[2019-12-27 07:33] LABS: PHOSPHORUS 4.5 mg/dL (2.5-4.9)
[2019-12-27] MEDS: AMLODIPINE 10MG TABLET PO SCH (09:00)
[2019-12-27] MEDS: ENOXAPARIN 30MG/0.3ML SYR SUBCUT SCH (09:00)
[2019-12-27] MEDS: SEVELAMER CARBONATE 800 MG TABLET PO SCH ×3 (09:05→18:33)
[2019-12-27] MEDS: ASCORBIC ACID 500 MG TABLET PO SCH ×2 (09:05→21:01)
[2019-12-27] MEDS: MORPHINE SULFATE 2 MG/ML CPJ (NOT FOR IM USE) IV PRN ×3 (09:06→18:34)
[2019-12-27] MEDS: ZINC SULFATE 220 MG ( 50 ) CAPSULE PO SCH (09:06)
[2019-12-27] MEDS: FAMOTIDINE 20MG TABLET PO SCH (09:06)
[2019-12-27] MEDS ORDERED: VANCOMYCIN 750 MG PREMIX 150 ML IV SCH (16:00)
[2019-12-28] VITALS: BP 163/89
[2019-12-28] MEDS: CLONIDINE 0.1MG TABLET PO SCH ×3 (01:25→17:27)
[2019-12-28 04:00] VITALS: BP 160/83
[2019-12-28] MEDS: PIPERACILLIN/TAZOBACTAM 2.25 G in DEXTROSE 5% WATER 50 ML IV SCH ×3 (05:26→20:39)
[2019-12-28] MEDS: HYDRALAZINE HCL 50MG TABLET PO SCH ×3 (05:32→21:06)
[2019-12-28] MEDS: MORPHINE SULFATE 2 MG/ML CPJ (NOT FOR IM USE) IV PRN (07:04)
[2019-12-28 07:59] LABS: BASOPHILS % 0.9 % (0.0-2.0); EOSINOPHILS % 5.5 % (0.0-5.0); HEMATOCRIT. 27.2 % (42.0-52.0); HEMOGLOBIN. 8.5 g/dL (14.0-18.0); LYMPHOCYTES % 11.1 % (20.0-50.0); MEAN CORPUSCULAR HEMOGLOBIN 27.3 pg (28.0-32.0); MEAN CORPUSCULAR VOLUME 87.2 fL (80.0-94.0); MEAN PLATELET VOLUME 8.6 fl (7.4-10.4); MONOCYTES % 8.3 % (2.0-8.0); NEUTROPHILS % 74.2 % (40.0-76.0); PLATELET 301 x1000/uL (130-400); RED BLOOD CELL COUNT 3.12 mill/uL (4.7-6.1); RED CELL DISTRIBUTION WIDTH 20.5 % (11.6-14.6)
[2019-12-28 08:00] VITALS: BP 166/82
[2019-12-28] MEDS: AMLODIPINE 10MG TABLET PO SCH (09:00)
[2019-12-28] MEDS: FAMOTIDINE 20MG TABLET PO SCH (09:18)
[2019-12-28] MEDS: ZINC SULFATE 220 MG ( 50 ) CAPSULE PO SCH (09:18)
[2019-12-28] MEDS: SEVELAMER CARBONATE 800 MG TABLET PO SCH ×3 (09:18→17:25)
[2019-12-28] MEDS: ASCORBIC ACID 500 MG TABLET PO SCH ×2 (09:18→20:39)
[2019-12-28] MEDS ORDERED: BACITRACIN 50,000 UNITS/VIAL ONE (09:23)
[2019-12-28] MEDS ORDERED: BUPIVACAINE HCL/PF 0.5% (5MG/ML) 10ML ONE (09:23)
[2019-12-28] MEDS ORDERED: LIDOCAINE HCL 1% 20ML VIAL (Pyxis) INJ ONE (09:23)
[2019-12-28] MEDS ORDERED: MIDAZOLAM HCL 2 MG/2 ML VIAL ONE (10:38)
[2019-12-28] MEDS ORDERED: FENTANYL CITRATE/PF 50MCG/ML 2ML VIAL ONE (10:38)
[2019-12-28] MEDS ORDERED: PROPOFOL 200MG/20ML VIAL IV ONE (10:38)
[2019-12-28] MEDS ORDERED: ONDANSETRON HCL 4MG/2ML INJ ONE (10:38)
[2019-12-28] MEDS ORDERED: DEXAMETHASONE 4MG/ML 1ML VIAL ONE (10:38)
[2019-12-28] MEDS ORDERED: LABETALOL 5MG/ML SYR 20 MG/4 ML SYRINGE IV PRN (11:00)
[2019-12-28] MEDS ORDERED: MEPERIDINE HCL/PF 25MG/ML CPJ IV PRN (11:00)
[2019-12-28] MEDS ORDERED: ONDANSETRON HCL 4MG/2ML INJ IV PRN (11:00)
[2019-12-28] MEDS ORDERED: MIDAZOLAM HCL 5 MG/5 ML VIAL IV SCH (12:30)
[2019-12-28] MEDS: HYDROMORPHONE HCL/PF 2MG/ML CPJ IV PRN ×6 (12:41→20:40)
[2019-12-28] MEDS ORDERED: MORPHINE SULFATE 4 MG/ML CPJ (NOT FOR IM USE) IV PRN (12:45)
[2019-12-28 16:00] VITALS: BP 186/86
[2019-12-28 20:00] VITALS: BP 158/77
[2019-12-29] VITALS (12 sets, daily range): BP systolic 92–206; BP diastolic 58–101
[2019-12-29] MEDS: CLONIDINE 0.1MG TABLET PO SCH ×3 (01:37→17:34)
[2019-12-29] MEDS: HYDROMORPHONE HCL/PF 2MG/ML CPJ IV PRN ×6 (01:37→21:15)
[2019-12-29] MEDS: CLONIDINE 0.1MG TABLET PO PRN ×2 (02:01→21:16)
[2019-12-29] MEDS: HYDRALAZINE HCL 50MG TABLET PO SCH ×3 (05:03→21:16)
[2019-12-29] MEDS: PIPERACILLIN/TAZOBACTAM 2.25 G in DEXTROSE 5% WATER 50 ML IV SCH ×3 (05:17→21:16)
[2019-12-29 06:34] LABS: BASOPHILS % 0.8 % (0.0-2.0); EOSINOPHILS % 2.6 % (0.0-5.0); HEMATOCRIT. 24.5 % (42.0-52.0); HEMOGLOBIN. 7.5 g/dL (14.0-18.0); MEAN CORPUSCULAR HEMOGLOBIN 26.9 pg (28.0-32.0); MEAN CORPUSCULAR VOLUME 87.5 fL (80.0-94.0); MEAN PLATELET VOLUME 8.7 fl (7.4-10.4); MONOCYTES % 7.3 % (2.0-8.0); NEUTROPHILS % 80.3 % (40.0-76.0); PLATELET 303 x1000/uL (130-400); RED CELL DISTRIBUTION WIDTH 20.1 % (11.6-14.6)
[2019-12-29] MEDS: SEVELAMER CARBONATE 800 MG TABLET PO SCH ×3 (08:23→17:33)
[2019-12-29] MEDS: ASCORBIC ACID 500 MG TABLET PO SCH ×2 (08:23→21:15)
[2019-12-29] MEDS: FAMOTIDINE 20MG TABLET PO SCH (08:23)
[2019-12-29] MEDS: ZINC SULFATE 220 MG ( 50 ) CAPSULE PO SCH (08:23)
[2019-12-29] MEDS: AMLODIPINE 10MG TABLET PO SCH ×2 (09:00→11:05)
[2019-12-29] MEDS ORDERED: HEPARIN SODIUM 1,000 UNIT/1ML VIAL IV NR (11:00)
[2019-12-29 13:18] LABS: HEMATOCRIT 28.8 % (42.0-52.0); HEMOGLOBIN 9.4 g/dL (14.0-18.0)
[2019-12-29] MEDS: ZOLPIDEM TARTRATE 5MG TABLET PO PRN (21:42)
[2019-12-30] VITALS (8 sets, daily range): BP systolic 130–196; BP diastolic 55–89
[2019-12-30] MEDS: CLONIDINE 0.1MG TABLET PO SCH ×3 (01:01→17:03)
[2019-12-30] MEDS: PIPERACILLIN/TAZOBACTAM 2.25 G in DEXTROSE 5% WATER 50 ML IV SCH ×3 (04:11→22:26)
[2019-12-30] MEDS: CLONIDINE 0.1MG TABLET PO PRN (04:11)
[2019-12-30] MEDS: HYDRALAZINE HCL 50MG TABLET PO SCH ×3 (06:05→22:28)
[2019-12-30] MEDS: HYDROMORPHONE HCL/PF 2MG/ML CPJ IV PRN ×4 (06:06→22:29)
[2019-12-30] MEDS: HYDROCODONE/ACETAMINOPHEN 10/325MG TABLET PO SCH ×4 (06:10→17:03)
[2019-12-30] MEDS: ZINC SULFATE 220 MG ( 50 ) CAPSULE PO SCH (09:48)
[2019-12-30] MEDS: SEVELAMER CARBONATE 800 MG TABLET PO SCH ×3 (09:49→17:03)
[2019-12-30] MEDS: AMLODIPINE 10MG TABLET PO SCH (09:49)
[2019-12-30] MEDS: FAMOTIDINE 20MG TABLET PO SCH (09:49)
[2019-12-30] MEDS: ASCORBIC ACID 500 MG TABLET PO SCH ×2 (09:56→22:26)
[2019-12-31] VITALS: BP 144/70
[2019-12-31] MEDS: HYDROCODONE/ACETAMINOPHEN 10/325MG TABLET PO SCH ×3 (01:50→18:10)
[2019-12-31] MEDS: CLONIDINE 0.1MG TABLET PO SCH ×3 (02:58→18:09)
[2019-12-31 04:00] VITALS: BP 173/74
[2019-12-31] MEDS: PIPERACILLIN/TAZOBACTAM 2.25 G in DEXTROSE 5% WATER 50 ML IV SCH ×3 (04:59→21:17)
[2019-12-31] MEDS: HYDRALAZINE HCL 50MG TABLET PO SCH ×3 (05:01→21:27)
[2019-12-31] MEDS: HYDROMORPHONE HCL/PF 2MG/ML CPJ IV PRN (05:06)
[2019-12-31 07:18] LABS: BASOPHILS % 0.9 % (0.0-2.0); EOSINOPHILS % 4.9 % (0.0-5.0); HEMATOCRIT. 28.2 % (42.0-52.0); HEMOGLOBIN. 9.1 g/dL (14.0-18.0); LYMPHOCYTES % 10.9 % (20.0-50.0); MEAN CORPUSCULAR VOLUME 87.1 fL (80.0-94.0); MEAN PLATELET VOLUME 9.1 fl (7.4-10.4); MONOCYTES % 6.5 % (2.0-8.0); NEUTROPHILS % 76.8 % (40.0-76.0); PLATELET 290 x1000/uL (130-400); RED BLOOD CELL COUNT 3.24 mill/uL (4.7-6.1); RED CELL DISTRIBUTION WIDTH 19.3 % (11.6-14.6)
[2019-12-31 08:00] VITALS: BP 163/46
[2019-12-31] MEDS: SEVELAMER CARBONATE 800 MG TABLET PO SCH ×3 (09:13→16:50)
[2019-12-31] MEDS: ASCORBIC ACID 500 MG TABLET PO SCH ×2 (09:14→21:17)
[2019-12-31] MEDS: AMLODIPINE 10MG TABLET PO SCH (09:14)
[2019-12-31] MEDS: ZINC SULFATE 220 MG ( 50 ) CAPSULE PO SCH (09:14)
[2019-12-31] MEDS: FAMOTIDINE 20MG TABLET PO SCH (09:14)
[2019-12-31] MEDS: HYDROCODONE/ACETAMINOPHEN 10/325MG TABLET PO PRN ×2 (09:43→15:19)
[2019-12-31 12:00] VITALS: BP 134/63
[2019-12-31 16:00] VITALS: BP 144/79
[2019-12-31] MEDS ORDERED: VANCOMYCIN 750 MG PREMIX 150 ML IV SCH (17:00)
[2019-12-31 20:00] VITALS: BP 158/87
[2019-12-31] MEDS: ZOLPIDEM TARTRATE 5MG TABLET PO PRN (21:31)
[2020-01-01] VITALS (7 sets, daily range): BP systolic 155–188; BP diastolic 84–95
[2020-01-01] MEDS: HYDROCODONE/ACETAMINOPHEN 10/325MG TABLET PO SCH ×3 (00:45→11:55)
[2020-01-01] MEDS: CLONIDINE 0.1MG TABLET PO SCH ×2 (01:07→09:11)
[2020-01-01] MEDS: CLONIDINE 0.1MG TABLET PO PRN ×2 (03:30→09:11)
[2020-01-01] MEDS: HYDROCODONE/ACETAMINOPHEN 10/325MG TABLET PO PRN (03:31)
[2020-01-01] MEDS: HYDRALAZINE HCL 50MG TABLET PO SCH ×2 (06:29→12:59)
[2020-01-01] MEDS ORDERED: ENOXAPARIN 30MG/0.3ML SYR SUBCUT SCH (09:00)
[2020-01-01 09:02] LABS: BASOPHILS % 1.2 % (0.0-2.0); EOSINOPHILS % 4.9 % (0.0-5.0); HEMATOCRIT. 30.5 % (42.0-52.0); HEMOGLOBIN. 9.8 g/dL (14.0-18.0); LYMPHOCYTES % 14.6 % (20.0-50.0); MEAN CORPUSCULAR HEMOGLOBIN 27.5 pg (28.0-32.0); MEAN CORPUSCULAR VOLUME 85.6 fL (80.0-94.0); MONOCYTES % 8.1 % (2.0-8.0); NEUTROPHILS % 71.2 % (40.0-76.0); PLATELET 289 x1000/uL (130-400); RED BLOOD CELL COUNT 3.57 mill/uL (4.7-6.1); RED CELL DISTRIBUTION WIDTH 18.7 % (11.6-14.6)
[2020-01-01] MEDS: SEVELAMER CARBONATE 800 MG TABLET PO SCH ×2 (09:10→12:59)
[2020-01-01] MEDS: ZINC SULFATE 220 MG ( 50 ) CAPSULE PO SCH (09:11)
[2020-01-01] MEDS: ASCORBIC ACID 500 MG TABLET PO SCH (09:11)
[2020-01-01] MEDS: AMLODIPINE 10MG TABLET PO SCH (09:12)
[2020-01-01] MEDS: FAMOTIDINE 20MG TABLET PO SCH (09:12)
== END 2020-01-01 15:46 | DRG 856 ==
LOC: ER 21:29 → 6EST 12-26 04:03 → SUPCPDRO 12-26 06:12 → ENRESERV 12-26 07:28
PROVIDERS: ADMIT Internal Medicine; ATTEND Internal Medicine
PROC: 0Y6C0Z3 Detachment at Right Upper Leg, Low, Open Approach (ICD-10-PCS; principal; 2019-12-26)
DX: T81.41XA Infection following a procedure, superficial incisional surgical site, initial encounter (principal); A41.9 Sepsis, unspecified organism; E43 Unspecified severe protein-calorie malnutrition; N18.6 End stage renal disease; E87.1 Hypo-osmolality and hyponatremia; I12.0 Hypertensive chronic kidney disease with stage 5 chronic kidney disease or end stage renal disease; E11.52 Type 2 diabetes mellitus with diabetic peripheral angiopathy with gangrene; I96 Gangrene, not elsewhere classified; D62 Acute posthemorrhagic anemia; L03.90 Cellulitis, unspecified; T81.30XA Disruption of wound, unspecified, initial encounter; D63.8 Anemia in other chronic diseases classified elsewhere; E11.22 Type 2 diabetes mellitus with diabetic chronic kidney disease; E78.00 Pure hypercholesterolemia, unspecified; E83.51 Hypocalcemia; G54.6 Phantom limb syndrome with pain; Y83.5 Amputation of limb(s) as the cause of abnormal reaction of the patient, or of later complication, without mention of misadventure at the time of the procedure; Z20.828 Contact with and (suspected) exposure to other viral communicable diseases; Z79.02 Long term (current) use of antithrombotics/antiplatelets; Z89.511 Acquired absence of right leg below knee; Z99.2 Dependence on renal dialysis; Z89.612 Acquired absence of left leg above knee; Z79.899 Other long term (current) drug therapy; Z82.49 Family history of ischemic heart disease and other diseases of the circulatory system; Z87.891 Personal history of nicotine dependence; Z79.82 Long term (current) use of aspirin; Z79.891 Long term (current) use of opiate analgesic; Z68.22 Body mass index [BMI] 22.0-22.9, adult
CPT/HCPCS: 36415; 71045; 80048; 80053; 80061; 80202; 83036; 83735; 84100; 84145; 85014; 85018; 85025; 85379; 86850; 86900; 86920; 88300; 88307; 88311; 93005; 93970; 97162; 97166; 97530; 97535; 99285; J1100; J1170; J1200; J1644; J1650; J2250; J2270; J2405; J2543; J2704; J3010; J3370; J3490; J7060; P9016; U0003-CS

== ENCOUNTER 2020-01-01 16:00 | Inpatient (IN) | payer MEDICARE, MEDICAID ==
[~2020-01-01] VITALS: Ht 111.8 cm; Wt 30.8 kg
[2020-01-01 16:15] VITALS: BP 160/53
[2020-01-01] MEDS: HYDROCODONE/ACETAMINOPHEN 10/325MG TABLET PO PRN (16:16)
[2020-01-01] MEDS ORDERED: IPRATROPIUM/ALBUTEROL 0.5-3(2.5)MG/3ML NEB HHN PRN (16:30)
[2020-01-01] MEDS ORDERED: MAGNESIUM/ALUMINUM HYDROXIDE/SIMETHICONE 30ML UDC PO PRN (16:30)
[2020-01-01] MEDS ORDERED: HYDROCODONE/ACETAMINOPHEN 10/325MG TABLET PO PRN (16:30)
[2020-01-01] MEDS ORDERED: ONDANSETRON HCL 4MG/2ML INJ IV PRN (16:30)
[2020-01-01] MEDS ORDERED: CLONIDINE 0.1MG TABLET PO PRN (16:30)
[2020-01-01] MEDS ORDERED: GUAIFENESIN 200MG/10ML SUGAR FREE UDC PO PRN (16:30)
[2020-01-01] MEDS ORDERED: NITROGLYCERIN 0.4MG TABLET SL SL PRN (16:30)
[2020-01-01] MEDS ORDERED: ACETAMINOPHEN 325MG TABLET PO PRN (16:30)
[2020-01-01 17:08] VITALS: BP 160/53
[2020-01-01] MEDS: CLONIDINE 0.1MG TABLET PO SCH (17:24)
[2020-01-01] MEDS: SEVELAMER CARBONATE 800 MG TABLET PO SCH (17:25)
[2020-01-01] MEDS: DOCUSATE SODIUM 100MG CAPSULE PO SCH (17:25)
[2020-01-01 20:00] VITALS: BP 118/64
[2020-01-01] MEDS ORDERED: IPRATROPIUM/ALBUTEROL 0.5-3(2.5)MG/3ML NEB HHN SCH (20:00)
[2020-01-01] MEDS: ASCORBIC ACID 500 MG TABLET PO SCH (20:53)
[2020-01-01] MEDS: FAMOTIDINE 20MG TABLET PO SCH (20:53)
[2020-01-01] MEDS: HYDRALAZINE HCL 50MG TABLET PO SCH (21:06)
[2020-01-02] MEDS: CLONIDINE 0.1MG TABLET PO SCH ×3 (01:05→17:22)
[2020-01-02] MEDS: HYDROCODONE/ACETAMINOPHEN 10/325MG TABLET PO PRN ×3 (04:25→20:43)
[2020-01-02] MEDS: HYDRALAZINE HCL 50MG TABLET PO SCH ×3 (05:15→20:41)
[2020-01-02 07:55] VITALS: BP 158/25
[2020-01-02 08:14] LABS: EOSINOPHILS % 4.1 % (0.0-5.0); HEMATOCRIT. 31.8 % (42.0-52.0); HEMOGLOBIN. 10.5 g/dL (14.0-18.0); LYMPHOCYTES % 20.9 % (20.0-50.0); MEAN CORPUSCULAR HEMOGLOBIN 28.4 pg (28.0-32.0); MEAN PLATELET VOLUME 8.9 fl (7.4-10.4); PLATELET 353 x1000/uL (130-400); RED BLOOD CELL COUNT 3.69 mill/uL (4.7-6.1)
[2020-01-02 08:37] LABS: CHLORIDE 91 mEq/L (98-107)
[2020-01-02 09:00] VITALS: BP 158/72
[2020-01-02] MEDS: DOCUSATE SODIUM 100MG CAPSULE PO SCH ×2 (09:06→16:34)
[2020-01-02] MEDS: SEVELAMER CARBONATE 800 MG TABLET PO SCH ×3 (09:06→16:34)
[2020-01-02] MEDS: ZINC SULFATE 220 MG ( 50 ) CAPSULE PO SCH (09:06)
[2020-01-02] MEDS: ASCORBIC ACID 500 MG TABLET PO SCH ×2 (09:07→20:40)
[2020-01-02] MEDS: AMLODIPINE 10MG TABLET PO SCH (09:11)
[2020-01-02] MEDS: ENOXAPARIN 30MG/0.3ML SYR SUBCUT SCH (09:12)
[2020-01-02] MEDS ORDERED: GUAIFENESIN-DM 200MG-20MG/10ML UDC PO PRN (10:00)
[2020-01-02 13:00] VITALS: BP 157/95
[2020-01-02] MEDS: DIPHENHYDRAMINE 50MG/ML VIAL IV PRN ×2 (16:34→21:30)
[2020-01-02 17:24] VITALS: BP 152/70
[2020-01-02 20:00] VITALS: BP 166/79
[2020-01-02] MEDS: FAMOTIDINE 20MG TABLET PO SCH (20:40)
[2020-01-03] MEDS: CLONIDINE 0.1MG TABLET PO SCH ×3 (02:00→17:36)
[2020-01-03] MEDS: HYDRALAZINE HCL 50MG TABLET PO SCH ×3 (06:28→22:00)
[2020-01-03] MEDS: HYDROCODONE/ACETAMINOPHEN 10/325MG TABLET PO PRN ×3 (06:29→17:38)
[2020-01-03 08:00] VITALS: BP 187/73
[2020-01-03] MEDS: DOCUSATE SODIUM 100MG CAPSULE PO SCH ×2 (08:18→17:36)
[2020-01-03] MEDS: AMLODIPINE 10MG TABLET PO SCH (08:18)
[2020-01-03] MEDS: ASCORBIC ACID 500 MG TABLET PO SCH (08:18)
[2020-01-03] MEDS: ZINC SULFATE 220 MG ( 50 ) CAPSULE PO SCH (08:18)
[2020-01-03] MEDS: SEVELAMER CARBONATE 800 MG TABLET PO SCH ×3 (08:18→17:36)
[2020-01-03] MEDS: ENOXAPARIN 30MG/0.3ML SYR SUBCUT SCH (08:18)
[2020-01-03] MEDS: DIPHENHYDRAMINE 50MG/ML VIAL IV PRN (08:56)
[2020-01-03] MEDS ORDERED: ONDANSETRON 4MG ODT PO PRN (09:30)
[2020-01-03 09:50] VITALS: BP 110/76
[2020-01-03 10:36] LABS: HEMATOCRIT. 32.4 % (42.0-52.0); HEMOGLOBIN. 10.5 g/dL (14.0-18.0); LYMPHOCYTES % 18.6 % (20.0-50.0); MEAN CORPUSCULAR HEMOGLOBIN 27.9 pg (28.0-32.0); MEAN CORPUSCULAR VOLUME 86.3 fL (80.0-94.0); MEAN PLATELET VOLUME 9.4 fl (7.4-10.4); MONOCYTES % 6.6 % (2.0-8.0); NEUTROPHILS % 69.8 % (40.0-76.0); PLATELET 376 x1000/uL (130-400); RED BLOOD CELL COUNT 3.76 mill/uL (4.7-6.1); RED CELL DISTRIBUTION WIDTH 18.7 % (11.6-14.6)
[2020-01-03 11:03] LABS: PHOSPHORUS 6.3 mg/dL (2.5-4.9)
[2020-01-03 12:01] LABS: VITAMIN B12 SERUM 1114 pg/mL (211-911)
[2020-01-03 12:27] LABS: FOLIC ACID (FOLATE) SERUM > 20.00 ng/mL (>5.38)
[2020-01-03 12:56] VITALS: BP 181/70
[2020-01-03 12:58] LABS: FERRITIN 1879 ng/mL (22-322)
[2020-01-03 17:25] VITALS: BP 192/85
[2020-01-03 20:01] VITALS: BP 165/78
[2020-01-03] MEDS: DIPHENHYDRAMINE 50MG CAPSULE PO PRN (21:28)
[2020-01-03] MEDS: POLYETHYLENE GLYCOL 3350 (17GM) 1 DOSE PACK PO SCH (21:28)
[2020-01-04] MEDS: CLONIDINE 0.1MG TABLET PO SCH ×3 (03:03→17:13)
[2020-01-04] MEDS: FAMOTIDINE 20MG TABLET PO SCH ×2 (03:03→22:01)
[2020-01-04] MEDS: ASCORBIC ACID 500 MG TABLET PO SCH ×3 (03:03→22:01)
[2020-01-04] MEDS: HYDRALAZINE HCL 50MG TABLET PO SCH ×3 (06:19→22:01)
[2020-01-04] MEDS: HYDROCODONE/ACETAMINOPHEN 10/325MG TABLET PO PRN ×2 (06:19→09:57)
[2020-01-04 07:38] VITALS: BP 137/44
[2020-01-04] MEDS: SEVELAMER CARBONATE 800 MG TABLET PO SCH ×3 (08:26→16:44)
[2020-01-04] MEDS: ZINC SULFATE 220 MG ( 50 ) CAPSULE PO SCH (08:27)
[2020-01-04] MEDS: AMLODIPINE 10MG TABLET PO SCH (08:27)
[2020-01-04] MEDS: DOCUSATE SODIUM 100MG CAPSULE PO SCH ×2 (08:27→16:44)
[2020-01-04] MEDS: ENOXAPARIN 30MG/0.3ML SYR SUBCUT SCH (08:28)
[2020-01-04 20:00] VITALS: BP 146/39
[2020-01-04] MEDS: POLYETHYLENE GLYCOL 3350 (17GM) 1 DOSE PACK PO SCH (22:02)
[2020-01-04] MEDS: DIPHENHYDRAMINE 50MG CAPSULE PO PRN (22:38)
[2020-01-05] MEDS: CLONIDINE 0.1MG TABLET PO SCH ×3 (02:00→17:13)
[2020-01-05] MEDS: HYDRALAZINE HCL 50MG TABLET PO SCH ×3 (06:16→21:16)
[2020-01-05 07:48] VITALS: BP 171/58
[2020-01-05] MEDS: SEVELAMER CARBONATE 800 MG TABLET PO SCH ×3 (08:30→16:41)
[2020-01-05] MEDS: ENOXAPARIN 30MG/0.3ML SYR SUBCUT SCH (08:30)
[2020-01-05] MEDS: AMLODIPINE 10MG TABLET PO SCH (08:30)
[2020-01-05] MEDS: DOCUSATE SODIUM 100MG CAPSULE PO SCH ×2 (08:30→16:41)
[2020-01-05] MEDS: ZINC SULFATE 220 MG ( 50 ) CAPSULE PO SCH (08:30)
[2020-01-05] MEDS: POLYETHYLENE GLYCOL 3350 (17GM) 1 DOSE PACK PO SCH ×2 (08:32→21:00)
[2020-01-05 08:35] LABS: BASOPHILS % 1.5 % (0.0-2.0); EOSINOPHILS % 4.6 % (0.0-5.0); HEMOGLOBIN. 8.6 g/dL (14.0-18.0); LYMPHOCYTES % 17.3 % (20.0-50.0); MEAN CORPUSCULAR HEMOGLOBIN 27.7 pg (28.0-32.0); MEAN CORPUSCULAR VOLUME 87.2 fL (80.0-94.0); MEAN PLATELET VOLUME 9.3 fl (7.4-10.4); MONOCYTES % 9.9 % (2.0-8.0); NEUTROPHILS % 66.7 % (40.0-76.0); PLATELET 403 x1000/uL (130-400); RED BLOOD CELL COUNT 3.09 mill/uL (4.7-6.1); RED CELL DISTRIBUTION WIDTH 19.4 % (11.6-14.6)
[2020-01-05] MEDS: ASCORBIC ACID 500 MG TABLET PO SCH ×2 (08:38→21:16)
[2020-01-05] MEDS ORDERED: NA PHOS,M-B/NA PHOS,DI-BA ENEMA 118ML PR NR (10:45)
[2020-01-05] MEDS: HEPARIN SODIUM 1,000 UNIT/1ML VIAL IV NR ×2 (14:14→14:17)
[2020-01-05 14:45] VITALS: BP 134/75
[2020-01-05 16:47] VITALS: BP 145/75
[2020-01-05] MEDS: DIPHENHYDRAMINE 50MG CAPSULE PO PRN (18:53)
[2020-01-05 20:00] VITALS: BP 154/70
[2020-01-05 21:16] VITALS: BP 168/64
[2020-01-05] MEDS: FAMOTIDINE 20MG TABLET PO SCH (21:16)
[2020-01-05] MEDS: EPOETIN ALFA 10000UNITS/ML VIAL SUBCUT SCH (21:19)
[2020-01-05 21:30] VITALS: BP 168/82
[2020-01-06] VITALS (8 sets, daily range): BP systolic 146–176; BP diastolic 61–87
[2020-01-06] MEDS: CLONIDINE 0.1MG TABLET PO SCH ×3 (02:09→17:00)
[2020-01-06] MEDS: HYDRALAZINE HCL 50MG TABLET PO SCH ×3 (05:12→21:42)
[2020-01-06 06:26] LABS: BASOPHILS % 1.6 % (0.0-2.0); HEMOGLOBIN. 9.3 g/dL (14.0-18.0); LYMPHOCYTES % 18.9 % (20.0-50.0); MEAN CORPUSCULAR HEMOGLOBIN 28.3 pg (28.0-32.0); MEAN CORPUSCULAR VOLUME 85.5 fL (80.0-94.0); MEAN PLATELET VOLUME 8.8 fl (7.4-10.4); MONOCYTES % 12.7 % (2.0-8.0); NEUTROPHILS % 62.8 % (40.0-76.0); PLATELET 375 x1000/uL (130-400); RED BLOOD CELL COUNT 3.28 mill/uL (4.7-6.1); RED CELL DISTRIBUTION WIDTH 19.8 % (11.6-14.6)
[2020-01-06] MEDS: SEVELAMER CARBONATE 800 MG TABLET PO SCH ×3 (08:49→16:55)
[2020-01-06] MEDS: ASCORBIC ACID 500 MG TABLET PO SCH ×2 (08:49→21:42)
[2020-01-06] MEDS: AMLODIPINE 10MG TABLET PO SCH (08:49)
[2020-01-06] MEDS: ZINC SULFATE 220 MG ( 50 ) CAPSULE PO SCH (08:49)
[2020-01-06] MEDS: DOCUSATE SODIUM 100MG CAPSULE PO SCH ×2 (08:49→16:55)
[2020-01-06] MEDS: ENOXAPARIN 30MG/0.3ML SYR SUBCUT SCH (08:50)
[2020-01-06] MEDS: POLYETHYLENE GLYCOL 3350 (17GM) 1 DOSE PACK PO SCH (21:00)
[2020-01-06] MEDS: FAMOTIDINE 20MG TABLET PO SCH (21:42)
[2020-01-07 02:32] VITALS: BP 182/86
[2020-01-07] MEDS: CLONIDINE 0.1MG TABLET PO SCH ×3 (02:32→20:40)
[2020-01-07] MEDS: DIPHENHYDRAMINE 50MG CAPSULE PO PRN ×2 (03:22→08:55)
[2020-01-07 04:07] LABS: 25-HYDROXY VITAMIN D3 7.1 ng/mL (.)
[2020-01-07 05:46] VITALS: BP 179/80
[2020-01-07] MEDS: HYDRALAZINE HCL 50MG TABLET PO SCH ×3 (05:46→21:03)
[2020-01-07 07:29] LABS: BASOPHILS % 1.6 % (0.0-2.0); EOSINOPHILS % 4.5 % (0.0-5.0); HEMATOCRIT. 28.8 % (42.0-52.0); HEMOGLOBIN. 9.3 g/dL (14.0-18.0); LYMPHOCYTES % 21.3 % (20.0-50.0); MEAN CORPUSCULAR HEMOGLOBIN 28.3 pg (28.0-32.0); MEAN CORPUSCULAR VOLUME 87.2 fL (80.0-94.0); NEUTROPHILS % 62.6 % (40.0-76.0); PLATELET 410 x1000/uL (130-400); RED CELL DISTRIBUTION WIDTH 19.6 % (11.6-14.6)
[2020-01-07 08:03] VITALS: BP 172/89
[2020-01-07] MEDS: ENOXAPARIN 30MG/0.3ML SYR SUBCUT SCH (08:49)
[2020-01-07] MEDS: ASCORBIC ACID 500 MG TABLET PO SCH ×2 (08:50→20:40)
[2020-01-07] MEDS: AMLODIPINE 10MG TABLET PO SCH (08:50)
[2020-01-07] MEDS: SEVELAMER CARBONATE 800 MG TABLET PO SCH ×3 (08:50→18:04)
[2020-01-07] MEDS: DOCUSATE SODIUM 100MG CAPSULE PO SCH ×2 (08:50→18:04)
[2020-01-07] MEDS: ZINC SULFATE 220 MG ( 50 ) CAPSULE PO SCH (08:50)
[2020-01-07] MEDS ORDERED: LACTULOSE 20G/30ML UDC PO PRN (09:00)
[2020-01-07] MEDS ORDERED: NA PHOS,M-B/NA PHOS,DI-BA ENEMA 118ML PR PRN (09:00)
[2020-01-07] MEDS: BISACODYL 5MG TABLET PO PRN (09:29)
[2020-01-07 13:12] VITALS: BP 153/93
[2020-01-07] MEDS: HYDROCODONE/ACETAMINOPHEN 10/325MG TABLET PO PRN (13:47)
[2020-01-07] MEDS ORDERED: ERGOCALCIFEROL 50000UNITS CAPSULE PO SCH (14:00)
[2020-01-07 20:00] VITALS: BP 141/83
[2020-01-07] MEDS: FAMOTIDINE 20MG TABLET PO SCH (20:40)
[2020-01-07] MEDS: EPOETIN ALFA 10000UNITS/ML VIAL SUBCUT SCH (20:40)
[2020-01-07] MEDS: POLYETHYLENE GLYCOL 3350 (17GM) 1 DOSE PACK PO SCH (20:43)
[2020-01-08] MEDS: CLONIDINE 0.1MG TABLET PO SCH ×3 (02:00→17:00)
[2020-01-08] MEDS: HYDRALAZINE HCL 50MG TABLET PO SCH ×3 (05:52→21:47)
[2020-01-08 07:59] LABS: PHOSPHORUS 3.6 mg/dL (2.5-4.9)
[2020-01-08 08:00] VITALS: BP 119/84
[2020-01-08] MEDS: AMLODIPINE 10MG TABLET PO SCH (09:25)
[2020-01-08] MEDS: SEVELAMER CARBONATE 800 MG TABLET PO SCH ×3 (09:25→16:47)
[2020-01-08] MEDS: ASCORBIC ACID 500 MG TABLET PO SCH ×2 (09:26→21:47)
[2020-01-08] MEDS: DOCUSATE SODIUM 100MG CAPSULE PO SCH ×2 (09:27→16:47)
[2020-01-08] MEDS: ENOXAPARIN 30MG/0.3ML SYR SUBCUT SCH (09:27)
[2020-01-08] MEDS: ZINC SULFATE 220 MG ( 50 ) CAPSULE PO SCH (09:29)
[2020-01-08] MEDS: HYDROCODONE/ACETAMINOPHEN 10/325MG TABLET PO PRN (13:24)
[2020-01-08 20:00] VITALS: BP 125/74
[2020-01-08] MEDS: POLYETHYLENE GLYCOL 3350 (17GM) 1 DOSE PACK PO SCH ×2 (21:00→21:46)
[2020-01-08] MEDS: FAMOTIDINE 20MG TABLET PO SCH (21:47)
[2020-01-09] MEDS: CLONIDINE 0.1MG TABLET PO SCH ×3 (01:06→17:08)
[2020-01-09] MEDS: DIPHENHYDRAMINE 50MG CAPSULE PO PRN (05:46)
[2020-01-09] MEDS: HYDRALAZINE HCL 50MG TABLET PO SCH ×3 (05:46→21:25)
[2020-01-09 06:51] LABS: BASOPHILS % 1.5 % (0.0-2.0); EOSINOPHILS % 4.6 % (0.0-5.0); HEMATOCRIT. 30.8 % (42.0-52.0); HEMOGLOBIN. 9.8 g/dL (14.0-18.0); LYMPHOCYTES % 24.9 % (20.0-50.0); MEAN CORPUSCULAR HEMOGLOBIN 27.6 pg (28.0-32.0); MEAN CORPUSCULAR VOLUME 86.5 fL (80.0-94.0); MEAN PLATELET VOLUME 8.8 fl (7.4-10.4); MONOCYTES % 9.8 % (2.0-8.0); NEUTROPHILS % 59.2 % (40.0-76.0); PLATELET 407 x1000/uL (130-400); RED BLOOD CELL COUNT 3.56 mill/uL (4.7-6.1); RED CELL DISTRIBUTION WIDTH 20.2 % (11.6-14.6)
[2020-01-09 08:00] VITALS: BP 150/91
[2020-01-09] MEDS: DOCUSATE SODIUM 100MG CAPSULE PO SCH ×2 (09:37→17:08)
[2020-01-09] MEDS: SEVELAMER CARBONATE 800 MG TABLET PO SCH ×3 (09:37→17:08)
[2020-01-09] MEDS: ASCORBIC ACID 500 MG TABLET PO SCH ×2 (09:38→21:24)
[2020-01-09] MEDS: AMLODIPINE 10MG TABLET PO SCH (09:38)
[2020-01-09] MEDS: ENOXAPARIN 30MG/0.3ML SYR SUBCUT SCH (09:39)
[2020-01-09] MEDS: ZINC SULFATE 220 MG ( 50 ) CAPSULE PO SCH (09:51)
[2020-01-09 20:00] VITALS: BP 150/67
[2020-01-09] MEDS: FAMOTIDINE 20MG TABLET PO SCH (21:24)
[2020-01-09] MEDS: POLYETHYLENE GLYCOL 3350 (17GM) 1 DOSE PACK PO SCH (21:24)
[2020-01-10 01:00] VITALS: BP 136/70
[2020-01-10] MEDS: CLONIDINE 0.1MG TABLET PO SCH ×3 (01:43→17:10)
[2020-01-10] MEDS: HYDRALAZINE HCL 50MG TABLET PO SCH ×3 (05:09→22:33)
[2020-01-10 07:11] LABS: BASOPHILS % 1.3 % (0.0-2.0); EOSINOPHILS % 4.5 % (0.0-5.0); HEMATOCRIT. 29.6 % (42.0-52.0); HEMOGLOBIN. 9.8 g/dL (14.0-18.0); LYMPHOCYTES % 21.4 % (20.0-50.0); MEAN CORPUSCULAR HEMOGLOBIN 28.4 pg (28.0-32.0); MEAN CORPUSCULAR VOLUME 86.2 fL (80.0-94.0); MEAN PLATELET VOLUME 8.5 fl (7.4-10.4); MONOCYTES % 9.4 % (2.0-8.0); NEUTROPHILS % 63.4 % (40.0-76.0); PLATELET 389 x1000/uL (130-400); RED BLOOD CELL COUNT 3.43 mill/uL (4.7-6.1); RED CELL DISTRIBUTION WIDTH 20.1 % (11.6-14.6)
[2020-01-10 07:20] VITALS: BP 136/85
[2020-01-10] MEDS: ASCORBIC ACID 500 MG TABLET PO SCH ×2 (08:14→22:32)
[2020-01-10] MEDS: AMLODIPINE 10MG TABLET PO SCH (08:14)
[2020-01-10] MEDS: SEVELAMER CARBONATE 800 MG TABLET PO SCH ×3 (08:14→17:09)
[2020-01-10] MEDS: DOCUSATE SODIUM 100MG CAPSULE PO SCH ×2 (08:14→17:09)
[2020-01-10] MEDS: ZINC SULFATE 220 MG ( 50 ) CAPSULE PO SCH (08:14)
[2020-01-10] MEDS: ENOXAPARIN 30MG/0.3ML SYR SUBCUT SCH (08:14)
[2020-01-10] MEDS: LACTULOSE 20G/30ML UDC PO SCH ×2 (14:15→15:17)
[2020-01-10] MEDS: DIPHENHYDRAMINE 50MG CAPSULE PO PRN (15:17)
[2020-01-10] MEDS: BISACODYL 5MG TABLET PO PRN (17:09)
[2020-01-10 20:00] VITALS: BP 122/72
[2020-01-10] MEDS: POLYETHYLENE GLYCOL 3350 (17GM) 1 DOSE PACK PO SCH (21:00)
[2020-01-10] MEDS: FAMOTIDINE 20MG TABLET PO SCH (22:32)
[2020-01-10] MEDS: EPOETIN ALFA 10000UNITS/ML VIAL SUBCUT SCH (22:33)
[2020-01-11] MEDS: CLONIDINE 0.1MG TABLET PO SCH ×3 (01:28→17:20)
[2020-01-11] MEDS: HYDRALAZINE HCL 50MG TABLET PO SCH ×3 (05:35→22:53)
[2020-01-11 07:53] VITALS: BP 187/98
[2020-01-11] MEDS: DOCUSATE SODIUM 100MG CAPSULE PO SCH ×2 (08:26→17:19)
[2020-01-11] MEDS: ZINC SULFATE 220 MG ( 50 ) CAPSULE PO SCH (08:26)
[2020-01-11] MEDS: AMLODIPINE 10MG TABLET PO SCH (08:26)
[2020-01-11] MEDS: ASCORBIC ACID 500 MG TABLET PO SCH ×2 (08:26→22:53)
[2020-01-11] MEDS: SEVELAMER CARBONATE 800 MG TABLET PO SCH ×3 (08:26→17:19)
[2020-01-11] MEDS: ENOXAPARIN 30MG/0.3ML SYR SUBCUT SCH (08:27)
[2020-01-11 09:44] VITALS: BP 157/85
[2020-01-11] MEDS: DIPHENHYDRAMINE 50MG CAPSULE PO PRN (12:34)
[2020-01-11] MEDS: HYDROCODONE/ACETAMINOPHEN 10/325MG TABLET PO PRN (14:47)
[2020-01-11 20:00] VITALS: BP 134/70
[2020-01-11] MEDS: POLYETHYLENE GLYCOL 3350 (17GM) 1 DOSE PACK PO SCH (21:00)
[2020-01-11] MEDS: FAMOTIDINE 20MG TABLET PO SCH (22:54)
[2020-01-12 02:00] VITALS: BP 109/69
[2020-01-12] MEDS: CLONIDINE 0.1MG TABLET PO SCH ×3 (02:00→18:00)
[2020-01-12] MEDS: HYDRALAZINE HCL 50MG TABLET PO SCH ×3 (05:33→22:42)
[2020-01-12] MEDS: DIPHENHYDRAMINE 50MG CAPSULE PO PRN (05:43)
[2020-01-12 07:53] VITALS: BP 177/90
[2020-01-12] MEDS: SEVELAMER CARBONATE 800 MG TABLET PO SCH ×3 (08:01→17:00)
[2020-01-12] MEDS: DOCUSATE SODIUM 100MG CAPSULE PO SCH ×2 (08:01→17:00)
[2020-01-12] MEDS: ASCORBIC ACID 500 MG TABLET PO SCH ×2 (08:01→22:42)
[2020-01-12] MEDS: AMLODIPINE 10MG TABLET PO SCH (08:01)
[2020-01-12] MEDS: ZINC SULFATE 220 MG ( 50 ) CAPSULE PO SCH (08:01)
[2020-01-12] MEDS: ENOXAPARIN 30MG/0.3ML SYR SUBCUT SCH (08:04)
[2020-01-12 20:00] VITALS: BP 167/68
[2020-01-12] MEDS: POLYETHYLENE GLYCOL 3350 (17GM) 1 DOSE PACK PO SCH (21:00)
[2020-01-12] MEDS: FAMOTIDINE 20MG TABLET PO SCH (22:42)
[2020-01-13 02:11] VITALS: BP 140/86
[2020-01-13] MEDS: CLONIDINE 0.1MG TABLET PO SCH ×2 (02:43→10:00)
[2020-01-13] MEDS: EPOETIN ALFA 10000UNITS/ML VIAL SUBCUT SCH (02:43)
[2020-01-13 02:45] VITALS: BP 151/89
[2020-01-13] MEDS: HYDRALAZINE HCL 50MG TABLET PO SCH ×2 (05:51→14:02)
[2020-01-13] MEDS: DIPHENHYDRAMINE 50MG CAPSULE PO PRN (05:52)
[2020-01-13 06:38] LABS: BASOPHILS % 1.2 % (0.0-2.0); EOSINOPHILS % 5.4 % (0.0-5.0); HEMATOCRIT. 31.7 % (42.0-52.0); HEMOGLOBIN. 10.3 g/dL (14.0-18.0); LYMPHOCYTES % 17.3 % (20.0-50.0); MEAN CORPUSCULAR HEMOGLOBIN 28.6 pg (28.0-32.0); MEAN CORPUSCULAR VOLUME 87.6 fL (80.0-94.0); MEAN PLATELET VOLUME 8.6 fl (7.4-10.4); MONOCYTES % 9.3 % (2.0-8.0); NEUTROPHILS % 66.8 % (40.0-76.0); PLATELET 342 x1000/uL (130-400); RED BLOOD CELL COUNT 3.62 mill/uL (4.7-6.1); RED CELL DISTRIBUTION WIDTH 21.2 % (11.6-14.6)
[2020-01-13 07:36] VITALS: BP 188/70
[2020-01-13] MEDS: SEVELAMER CARBONATE 800 MG TABLET PO SCH ×2 (08:18→14:02)
[2020-01-13] MEDS: BISACODYL 5MG TABLET PO PRN (08:18)
[2020-01-13] MEDS: DOCUSATE SODIUM 100MG CAPSULE PO SCH (08:19)
[2020-01-13] MEDS: AMLODIPINE 10MG TABLET PO SCH (08:19)
[2020-01-13] MEDS: ASCORBIC ACID 500 MG TABLET PO SCH (08:19)
[2020-01-13] MEDS: ZINC SULFATE 220 MG ( 50 ) CAPSULE PO SCH (08:19)
[2020-01-13] MEDS: ENOXAPARIN 30MG/0.3ML SYR SUBCUT SCH (08:20)
[2020-01-13 10:52] VITALS: BP 159/65
== END 2020-01-13 14:30 | disposition home or self-care (01) | DRG 299 ==
PROVIDERS: ADMIT Physical Medicine & Rehabilitation Spinal Cord Injury Medicine; ATTEND Internal Medicine
PROC: 5A1D70Z Performance of Urinary Filtration, Intermittent, Less than 6 Hours Per Day (ICD-10-PCS; principal; 2020-01-03)
PROC: 5A1D70Z Performance of Urinary Filtration, Intermittent, Less than 6 Hours Per Day (ICD-10-PCS; 2020-01-05)
PROC: 5A1D70Z Performance of Urinary Filtration, Intermittent, Less than 6 Hours Per Day (ICD-10-PCS; 2020-01-07)
PROC: 5A1D70Z Performance of Urinary Filtration, Intermittent, Less than 6 Hours Per Day (ICD-10-PCS; 2020-01-10)
PROC: 5A1D70Z Performance of Urinary Filtration, Intermittent, Less than 6 Hours Per Day (ICD-10-PCS; 2020-01-12)
DX: E11.52 Type 2 diabetes mellitus with diabetic peripheral angiopathy with gangrene (principal); E43 Unspecified severe protein-calorie malnutrition; N18.6 End stage renal disease; T81.49XA Infection following a procedure, other surgical site, initial encounter; E87.1 Hypo-osmolality and hyponatremia; I12.0 Hypertensive chronic kidney disease with stage 5 chronic kidney disease or end stage renal disease; M86.8X7 Other osteomyelitis, ankle and foot; I96 Gangrene, not elsewhere classified; D63.8 Anemia in other chronic diseases classified elsewhere; E11.22 Type 2 diabetes mellitus with diabetic chronic kidney disease; E55.9 Vitamin D deficiency, unspecified; G54.6 Phantom limb syndrome with pain; E11.621 Type 2 diabetes mellitus with foot ulcer; E11.69 Type 2 diabetes mellitus with other specified complication; I25.10 Atherosclerotic heart disease of native coronary artery without angina pectoris; R26.2 Difficulty in walking, not elsewhere classified; L97.519 Non-pressure chronic ulcer of other part of right foot with unspecified severity; T87.81 Dehiscence of amputation stump; Y83.8 Other surgical procedures as the cause of abnormal reaction of the patient, or of later complication, without mention of misadventure at the time of the procedure; R53.81 Other malaise; Z87.891 Personal history of nicotine dependence; Z89.511 Acquired absence of right leg below knee; Z89.612 Acquired absence of left leg above knee; Z99.2 Dependence on renal dialysis; Z89.611 Acquired absence of right leg above knee; Z79.899 Other long term (current) drug therapy; Z68.24 Body mass index [BMI] 24.0-24.9, adult; Y92.89 Other specified places as the place of occurrence of the external cause; E11.42 Type 2 diabetes mellitus with diabetic polyneuropathy
CPT/HCPCS: 36415; 80048; 80053; 82306; 82607; 82728; 82746; 83540; 83550; 83735; 84100; 84134; 84443; 85014; 85018; 85025; 92523; 92610; 97110; 97116; 97162; 97166; 97530; 97535; 97542; J0885; J1200; J1644; J1650; J2405; Q0162; Q0163

== ENCOUNTER 2020-03-02 12:34 | Inpatient (IN) | payer MEDICARE, MEDICAID ==
[~2020-03-02] VITALS: Ht 160 cm; Wt 49.4 kg
[~2020-03-02 12:34] MED LIST changes: -AMLO10TA80 PO; -CEPH-569 MT; -CLON0.1T14 PO; -EPOE10005 SUBCUT; -LOSA50TA3 PO
[2020-03-02] MEDS ORDERED: HYDR100T26 PO (12:44)
[2020-03-02] MEDS ORDERED: VANCOMYCIN 1 G PREMIX 200 ML IV ONE (13:15)
[2020-03-02] MEDS ORDERED: PIPERACILLIN/TAZ 3.375G PREMIX 50 ML IV ONE (13:15)
[2020-03-02 13:30] LABS: EOSINOPHILS % 5.4 % (0.0-5.0); HEMATOCRIT. 31.3 % (42.0-52.0); HEMOGLOBIN. 10.3 g/dL (14.0-18.0); LYMPHOCYTES % 11.8 % (20.0-50.0); MEAN CORPUSCULAR HEMOGLOBIN 31.2 pg (28.0-32.0); MEAN PLATELET VOLUME 9.4 fl (7.4-10.4); MONOCYTES % 5.6 % (2.0-8.0); NEUTROPHILS % 76.2 % (40.0-76.0); PLATELET 154 x1000/uL (130-400); RED BLOOD CELL COUNT 3.29 mill/uL (4.7-6.1); RED CELL DISTRIBUTION WIDTH 20.2 % (11.6-14.6)
[2020-03-02 13:38] LABS: CHLORIDE 100 mEq/L (98-107)
[2020-03-02 13:41] LABS: INR 1.1; PROTHROMBIN TIME 11.6 sec (9.6-11.0)
[2020-03-02] MEDS ORDERED: ONDANSETRON HCL 4MG/2ML INJ IV PRN (16:15)
[2020-03-02] MEDS ORDERED: ACETAMINOPHEN 325MG TABLET PO PRN (16:15)
[2020-03-02] MEDS ORDERED: DEXTROSE 50% WATER 50ML SYRINGE IV PRN (16:15)
[2020-03-02] MEDS: BLOOD SUGAR DIAGNOSTIC STRIP TEST SCH ×2 (17:28→22:24)
[2020-03-02] MEDS: SEVELAMER CARBONATE 800 MG TABLET PO SCH (17:28)
[2020-03-02] MEDS: INSULIN LISPRO 100 UNITS/ML SUBCUT SCH ×2 (17:28→22:23)
[2020-03-02] MEDS: HYDRALAZINE HCL 100MG TABLET PO SCH (17:45)
[2020-03-02] MEDS: MORPHINE SULFATE 2 MG/ML CPJ (NOT FOR IM USE) IV PRN (21:20)
[2020-03-03] VITALS: BP 159/81
[2020-03-03] MEDS: MORPHINE SULFATE 2 MG/ML CPJ (NOT FOR IM USE) IV PRN ×3 (04:16→21:03)
[2020-03-03 05:16] VITALS: BP 159/81
[2020-03-03 06:23] LABS: BASOPHILS % 1.4 % (0.0-2.0); EOSINOPHILS % 6.8 % (0.0-5.0); HEMATOCRIT. 29.5 % (42.0-52.0); HEMOGLOBIN. 9.7 g/dL (14.0-18.0); LYMPHOCYTES % 11.9 % (20.0-50.0); MEAN CORPUSCULAR HEMOGLOBIN 31.5 pg (28.0-32.0); MEAN CORPUSCULAR VOLUME 95.3 fL (80.0-94.0); MEAN PLATELET VOLUME 9.6 fl (7.4-10.4); MONOCYTES % 6.7 % (2.0-8.0); NEUTROPHILS % 73.2 % (40.0-76.0); PLATELET 148 x1000/uL (130-400); RED BLOOD CELL COUNT 3.09 mill/uL (4.7-6.1); RED CELL DISTRIBUTION WIDTH 19.5 % (11.6-14.6)
[2020-03-03 06:36] LABS: CHLORIDE 101 mEq/L (98-107)
[2020-03-03] MEDS: BLOOD SUGAR DIAGNOSTIC STRIP TEST SCH ×4 (07:43→22:00)
[2020-03-03] MEDS: INSULIN LISPRO 100 UNITS/ML SUBCUT SCH ×4 (07:50→23:00)
[2020-03-03 08:00] VITALS: BP 169/92
[2020-03-03] MEDS: FOLIC ACID/VITAMIN B COMP W-C TABLET PO SCH (08:49)
[2020-03-03] MEDS: CLOPIDOGREL 75MG TABLET PO SCH (08:50)
[2020-03-03] MEDS: SEVELAMER CARBONATE 800 MG TABLET PO SCH ×3 (08:50→18:39)
[2020-03-03] MEDS: HYDRALAZINE HCL 100MG TABLET PO SCH ×3 (08:51→18:40)
[2020-03-03 12:00] VITALS: BP 191/62
[2020-03-03] MEDS: AMLODIPINE 10MG TABLET PO SCH (12:30)
[2020-03-03] MEDS: LOSARTAN POTASSIUM 50 MG TABLET PO SCH (12:30)
[2020-03-03] MEDS ORDERED: LABETALOL 5MG/ML SYR 20 MG/4 ML SYRINGE IV PRN (19:00)
[2020-03-03] MEDS: CLONIDINE 0.1MG TABLET PO PRN (19:00)
[2020-03-03 20:00] VITALS: BP 155/87
[2020-03-03] MEDS ORDERED: VANCOMYCIN 500 MG PREMIX 100 ML IV SCH (21:00)
[2020-03-03 22:00] VITALS: BP 178/92
[2020-03-03] MEDS: HEPARIN 5000 UNITS/ML VIAL SUBCUT SCH (23:23)
[2020-03-03] MEDS: ATORVASTATIN CALCIUM 40MG TABLET PO SCH ×2 (23:34→23:35)
[2020-03-04] VITALS: BP 185/98
[2020-03-04 04:00] VITALS: BP 183/98
[2020-03-04 05:57] LABS: EOSINOPHILS % 6.1 % (0.0-5.0); HEMATOCRIT. 30.7 % (42.0-52.0); HEMOGLOBIN. 10.2 g/dL (14.0-18.0); LYMPHOCYTES % 11.8 % (20.0-50.0); MEAN CORPUSCULAR HEMOGLOBIN 31.3 pg (28.0-32.0); MEAN CORPUSCULAR VOLUME 94.3 fL (80.0-94.0); MEAN PLATELET VOLUME 9.8 fl (7.4-10.4); MONOCYTES % 6.7 % (2.0-8.0); NEUTROPHILS % 74.4 % (40.0-76.0); PLATELET 140 x1000/uL (130-400); RED BLOOD CELL COUNT 3.26 mill/uL (4.7-6.1); RED CELL DISTRIBUTION WIDTH 19.4 % (11.6-14.6)
[2020-03-04] MEDS: INSULIN LISPRO 100 UNITS/ML SUBCUT SCH ×4 (06:26→20:29)
[2020-03-04] MEDS: BLOOD SUGAR DIAGNOSTIC STRIP TEST SCH ×4 (06:26→20:29)
[2020-03-04 08:00] VITALS: BP 188/96
[2020-03-04] MEDS: SEVELAMER CARBONATE 800 MG TABLET PO SCH ×3 (08:29→18:05)
[2020-03-04] MEDS: HYDRALAZINE HCL 100MG TABLET PO SCH ×3 (08:30→18:29)
[2020-03-04] MEDS: FOLIC ACID/VITAMIN B COMP W-C TABLET PO SCH (08:30)
[2020-03-04] MEDS: AMLODIPINE 10MG TABLET PO SCH (08:30)
[2020-03-04] MEDS: LOSARTAN POTASSIUM 50 MG TABLET PO SCH (08:30)
[2020-03-04] MEDS: CLOPIDOGREL 75MG TABLET PO SCH (08:30)
[2020-03-04] MEDS: MORPHINE SULFATE 2 MG/ML CPJ (NOT FOR IM USE) IV PRN ×2 (08:32→21:02)
[2020-03-04] MEDS: HEPARIN 5000 UNITS/ML VIAL SUBCUT SCH ×2 (08:33→20:28)
[2020-03-04] MEDS: DIPHENHYDRAMINE 50MG/ML VIAL IV PRN ×2 (12:30→20:28)
[2020-03-04 12:40] VITALS: BP 173/91
[2020-03-04 16:05] VITALS: BP 168/92
[2020-03-04] MEDS: ATORVASTATIN CALCIUM 40MG TABLET PO SCH (20:28)
[2020-03-04] MEDS: CARVEDILOL 6.25 MG TABLET PO SCH (20:29)
[2020-03-04 20:51] VITALS: BP 154/86
[2020-03-05] VITALS: BP 167/93
[2020-03-05] MEDS: DIPHENHYDRAMINE 50MG/ML VIAL IV PRN ×2 (03:11→10:00)
[2020-03-05 04:00] VITALS: BP_SYST 172; BP_SYST 177; BP_DIAS 95
[2020-03-05] MEDS: CLONIDINE 0.1MG TABLET PO PRN (05:01)
[2020-03-05] MEDS: MORPHINE SULFATE 2 MG/ML CPJ (NOT FOR IM USE) IV PRN (05:21)
[2020-03-05 06:12] LABS: BASOPHILS % 0.9 % (0.0-2.0); EOSINOPHILS % 8.5 % (0.0-5.0); HEMATOCRIT. 28.4 % (42.0-52.0); HEMOGLOBIN. 9.6 g/dL (14.0-18.0); LYMPHOCYTES % 15.3 % (20.0-50.0); MEAN CORPUSCULAR HEMOGLOBIN 31.9 pg (28.0-32.0); MEAN CORPUSCULAR VOLUME 94.4 fL (80.0-94.0); MEAN PLATELET VOLUME 9.8 fl (7.4-10.4); MONOCYTES % 8.5 % (2.0-8.0); NEUTROPHILS % 66.8 % (40.0-76.0); PLATELET 138 x1000/uL (130-400); RED BLOOD CELL COUNT 3.01 mill/uL (4.7-6.1); RED CELL DISTRIBUTION WIDTH 19.5 % (11.6-14.6)
[2020-03-05] MEDS: INSULIN LISPRO 100 UNITS/ML SUBCUT SCH ×4 (07:50→20:21)
[2020-03-05] MEDS: BLOOD SUGAR DIAGNOSTIC STRIP TEST SCH ×4 (08:08→20:21)
[2020-03-05] MEDS: HEPARIN 5000 UNITS/ML VIAL SUBCUT SCH ×2 (08:10→20:20)
[2020-03-05] MEDS: CLOPIDOGREL 75MG TABLET PO SCH (08:10)
[2020-03-05] MEDS: AMLODIPINE 10MG TABLET PO SCH (08:11)
[2020-03-05] MEDS: SEVELAMER CARBONATE 800 MG TABLET PO SCH ×3 (08:11→18:12)
[2020-03-05] MEDS: LOSARTAN POTASSIUM 100 MG TABLET PO SCH (08:12)
[2020-03-05] MEDS: FOLIC ACID/VITAMIN B COMP W-C TABLET PO SCH (08:12)
[2020-03-05] MEDS: CARVEDILOL 6.25 MG TABLET PO SCH ×2 (08:13→20:21)
[2020-03-05 08:45] VITALS: BP 163/89
[2020-03-05] MEDS: HYDRALAZINE HCL 100MG TABLET PO SCH ×3 (10:00→17:13)
[2020-03-05 12:13] VITALS: BP 125/45
[2020-03-05] MEDS ORDERED: DIPHENHYDRAMINE 50MG/ML VIAL IV NR (12:45)
[2020-03-05] MEDS ORDERED: DEXTROSE 5% WATER 1,000 ML IV ONE (14:00)
[2020-03-05 16:06] VITALS: BP 149/89
[2020-03-05] MEDS ORDERED: VANCOMYCIN 500 MG PREMIX 100 ML IV NR (20:00)
[2020-03-05] MEDS: ATORVASTATIN CALCIUM 40MG TABLET PO SCH (20:20)
[2020-03-05 20:25] VITALS: BP 182/98
[2020-03-06] MEDS: DIPHENHYDRAMINE 50MG/ML VIAL IV PRN ×3 (00:17→16:52)
[2020-03-06] MEDS: CLONIDINE 0.1MG TABLET PO PRN ×2 (00:17→06:13)
[2020-03-06 00:30] VITALS: BP 187/94
[2020-03-06] MEDS: MORPHINE SULFATE 2 MG/ML CPJ (NOT FOR IM USE) IV PRN ×4 (01:47→14:07)
[2020-03-06 04:00] VITALS: BP 172/90
[2020-03-06 07:09] LABS: HEMATOCRIT. 28.7 % (42.0-52.0); HEMOGLOBIN. 9.5 g/dL (14.0-18.0); MEAN CORPUSCULAR HEMOGLOBIN 31.4 pg (28.0-32.0); MEAN CORPUSCULAR VOLUME 94.9 fL (80.0-94.0); MEAN PLATELET VOLUME 9.8 fl (7.4-10.4); PLATELET 122 x1000/uL (130-400); RED BLOOD CELL COUNT 3.02 mill/uL (4.7-6.1); RED CELL DISTRIBUTION WIDTH 19.2 % (11.6-14.6)
[2020-03-06] MEDS: INSULIN LISPRO 100 UNITS/ML SUBCUT SCH ×3 (07:50→17:00)
[2020-03-06] MEDS: BLOOD SUGAR DIAGNOSTIC STRIP TEST SCH ×3 (07:57→16:51)
[2020-03-06 08:00] VITALS: BP 166/91
[2020-03-06] MEDS: SEVELAMER CARBONATE 800 MG TABLET PO SCH ×3 (09:02→16:52)
[2020-03-06] MEDS: FOLIC ACID/VITAMIN B COMP W-C TABLET PO SCH (09:02)
[2020-03-06] MEDS: LOSARTAN POTASSIUM 100 MG TABLET PO SCH (09:02)
[2020-03-06] MEDS: HYDRALAZINE HCL 100MG TABLET PO SCH ×3 (09:02→17:28)
[2020-03-06] MEDS: CARVEDILOL 6.25 MG TABLET PO SCH (09:02)
[2020-03-06] MEDS: AMLODIPINE 10MG TABLET PO SCH (09:03)
[2020-03-06] MEDS: HEPARIN 5000 UNITS/ML VIAL SUBCUT SCH (09:03)
[2020-03-06] MEDS: CLOPIDOGREL 75MG TABLET PO SCH (09:03)
[2020-03-06 12:00] VITALS: BP 163/72
[2020-03-06 13:59] LABS: PLATELET ESTIMATE SLIGHTLY DECREASED
[2020-03-06 15:19] VITALS: BP 163/72
[2020-03-06 16:00] VITALS: BP 173/58
== END 2020-03-06 19:25 | disposition home or self-care (01) | DRG 299 ==
LOC: ER 12:34 → EDBEDREQ 14:14 → EDBEDREQTM 14:14 → 6EST 16:03 → EDBEDREQ 16:10 → EDBEDREQTM 16:10 → CANRESERV 20:19 → ENRESERV 20:19 → EDBEDREQSVC 21:19 → EDBEDREQTM 21:19 → ENRESERV 21:39 → 6EST 03-03 10:19 → 6WST 03-03 21:33
PROVIDERS: ADMIT Internal Medicine Nephrology; ATTEND Internal Medicine Nephrology
PROC: 5A1D70Z Performance of Urinary Filtration, Intermittent, Less than 6 Hours Per Day (ICD-10-PCS; principal; 2020-03-03)
PROC: 5A1D70Z Performance of Urinary Filtration, Intermittent, Less than 6 Hours Per Day (ICD-10-PCS; 2020-03-05)
DX: E11.52 Type 2 diabetes mellitus with diabetic peripheral angiopathy with gangrene (principal); N18.6 End stage renal disease; I13.2 Hypertensive heart and chronic kidney disease with heart failure and with stage 5 chronic kidney disease, or end stage renal disease; I42.9 Cardiomyopathy, unspecified; I96 Gangrene, not elsewhere classified; E11.22 Type 2 diabetes mellitus with diabetic chronic kidney disease; I50.9 Heart failure, unspecified; D53.9 Nutritional anemia, unspecified; Z20.828 Contact with and (suspected) exposure to other viral communicable diseases; L08.9 Local infection of the skin and subcutaneous tissue, unspecified; Z79.02 Long term (current) use of antithrombotics/antiplatelets; Z89.611 Acquired absence of right leg above knee; Z99.2 Dependence on renal dialysis; Z89.612 Acquired absence of left leg above knee; Z79.891 Long term (current) use of opiate analgesic; Z79.899 Other long term (current) drug therapy
CPT/HCPCS: 36415; 71045; 73130; 80048; 80053; 80202; 82962; 83036; 85025; 85651; 87426; 93005; 97162; 99285; J1200; J1644; J1815; J2270; J2405; J3370

== ENCOUNTER 2020-05-07 21:01 | Emergency (ER) | payer MEDICARE, MEDICAID ==
[~2020-05-07] VITALS: Ht 106.7 cm; Wt 43.0 kg
[~2020-05-07 21:01] MED LIST changes: +CLOP-31 MT; -CLOP75TA4 MT; +HYDR100T26 PO
[2020-05-07 22:58] LABS: EOSINOPHILS % 4.9 % (0.0-5.0); HEMOGLOBIN. 11.1 g/dL (14.0-18.0); LYMPHOCYTES % 13.9 % (20.0-50.0); MEAN CORPUSCULAR HEMOGLOBIN 28.8 pg (28.0-32.0); MEAN CORPUSCULAR VOLUME 88.1 fL (80.0-94.0); MEAN PLATELET VOLUME 9.7 fl (7.4-10.4); MONOCYTES % 10.8 % (2.0-8.0); NEUTROPHILS % 69.4 % (40.0-76.0); PLATELET 126 x1000/uL (130-400); RED BLOOD CELL COUNT 3.87 mill/uL (4.7-6.1)
[2020-05-07 23:04] LABS: CHLORIDE 95 mEq/L (98-107)
[2020-05-07 23:07] LABS: INR 1.1; PROTHROMBIN TIME 11.7 sec (9.6-11.0)
[2020-05-07 23:08] LABS: ETHANOL BLOOD < 10 mg/dL
[2020-05-08] MEDS ORDERED: PROCHLORPERAZINE 10MG/2ML VIAL IV ONE (00:15)
[2020-05-08] MEDS ORDERED: ACETAMINOPHEN 325MG TABLET PO ONE (03:15)
[2020-05-08] MEDS ORDERED: IBUPROFEN 400MG TABLET PO ONE (03:15)
[2020-05-08 04:32] VITALS: BP 123/69
[2020-05-08] MEDS ORDERED: IOHEXOL-300 100 ML BOTTLE ONE (06:13)
== END 2020-05-08 05:30 | disposition home or self-care (01) ==
LOC: ER 21:01
DX: R41.82 Altered mental status, unspecified (principal); R51.9 Headache, unspecified; I12.0 Hypertensive chronic kidney disease with stage 5 chronic kidney disease or end stage renal disease; E11.22 Type 2 diabetes mellitus with diabetic chronic kidney disease; N18.6 End stage renal disease; Z79.899 Other long term (current) drug therapy; Z89.612 Acquired absence of left leg above knee; Z89.611 Acquired absence of right leg above knee
CPT/HCPCS: 36415; 70470; 71045; 80053; 80320; 83690; 84484; 85025; 85610; 93005; 96374; 99285; J0780; Q9967; G0480

== ENCOUNTER 2020-05-13 14:50 | Inpatient (IN) | payer MEDICARE, MEDICAID ==
[~2020-05-13] VITALS: Ht 121.9 cm; Wt 42.7 kg
[2020-05-13 16:23] LABS: BASOPHILS % 0.4 % (0.0-2.0); EOSINOPHILS % 2.2 % (0.0-5.0); HEMATOCRIT. 33.8 % (42.0-52.0); HEMOGLOBIN. 10.6 g/dL (14.0-18.0); MEAN CORPUSCULAR HEMOGLOBIN 28.3 pg (28.0-32.0); MEAN CORPUSCULAR VOLUME 90.2 fL (80.0-94.0); MONOCYTES % 5.4 % (2.0-8.0); PLATELET 197 x1000/uL (130-400); RED BLOOD CELL COUNT 3.75 mill/uL (4.7-6.1); RED CELL DISTRIBUTION WIDTH 19.3 % (11.6-14.6)
[2020-05-13 17:43] LABS: CHLORIDE 101 mEq/L (98-107)
[2020-05-13] MEDS ORDERED: DEXTROSE 50% WATER 50ML SYRINGE IV ONE (18:00)
[2020-05-13] MEDS ORDERED: INSULIN REGULAR (HUMULIN R) 300UNITS/3ML VIAL IV ONE (18:00)
[2020-05-13] MEDS ORDERED: ZOLPIDEM TARTRATE 5MG TABLET PO PRN (20:30)
[2020-05-13] MEDS ORDERED: MAGNESIUM/ALUMINUM HYDROXIDE/SIMETHICONE 30ML UDC PO PRN (20:30)
[2020-05-13] MEDS ORDERED: GUAIFENESIN 200MG/10ML SUGAR FREE UDC PO PRN (20:30)
[2020-05-13] MEDS ORDERED: ENOXAPARIN 40MG/0.4ML SYR SUBCUT SCH (20:30)
[2020-05-13] MEDS ORDERED: ONDANSETRON HCL 4MG/2ML INJ IV PRN (20:30)
[2020-05-13] MEDS ORDERED: DEXTROSE 50% WATER 50ML SYRINGE IV PRN (20:30)
[2020-05-13] MEDS: BLOOD SUGAR DIAGNOSTIC STRIP TEST SCH (21:00)
[2020-05-13] MEDS: INSULIN LISPRO 100 UNITS/ML SUBCUT SCH (21:00)
[2020-05-13] MEDS: ENOXAPARIN 30MG/0.3ML SYR SUBCUT SCH (21:00)
[2020-05-13] MEDS: SODIUM CHLORIDE 0.9% INJ 3ML FLUSH IVF SCH (22:00)
[2020-05-14] MEDS: SODIUM CHLORIDE 0.9% INJ 3ML FLUSH IVF SCH ×2 (06:16→21:15)
[2020-05-14 20:00] VITALS: BP 155/87
[2020-05-14] MEDS: ENOXAPARIN 30MG/0.3ML SYR SUBCUT SCH (20:18)
[2020-05-14] MEDS: BLOOD SUGAR DIAGNOSTIC STRIP TEST SCH (20:19)
[2020-05-14] MEDS: INSULIN LISPRO 100 UNITS/ML SUBCUT SCH (20:26)
[2020-05-15] VITALS (7 sets, daily range): BP systolic 96–191; BP diastolic 63–108
[2020-05-15] MEDS: CLONIDINE 0.1MG TABLET PO PRN (03:58)
[2020-05-15] MEDS: SODIUM CHLORIDE 0.9% INJ 3ML FLUSH IVF SCH ×3 (05:18→20:59)
[2020-05-15] MEDS: BLOOD SUGAR DIAGNOSTIC STRIP TEST SCH ×4 (05:18→20:59)
[2020-05-15] MEDS: INSULIN LISPRO 100 UNITS/ML SUBCUT SCH ×4 (07:44→21:00)
[2020-05-15] MEDS: LOSARTAN POTASSIUM 100 MG TABLET PO SCH (16:32)
[2020-05-15] MEDS: AMLODIPINE 10MG TABLET PO SCH (16:33)
[2020-05-15] MEDS: ATORVASTATIN CALCIUM 40MG TABLET PO SCH (20:52)
[2020-05-15] MEDS: CARVEDILOL 6.25 MG TABLET PO SCH (20:55)
[2020-05-15] MEDS: ENOXAPARIN 30MG/0.3ML SYR SUBCUT SCH (22:39)
[2020-05-16] VITALS: BP 113/73
[2020-05-16 04:00] VITALS: BP 123/75
[2020-05-16] MEDS: SODIUM CHLORIDE 0.9% INJ 3ML FLUSH IVF SCH ×3 (05:37→22:56)
[2020-05-16] MEDS: BLOOD SUGAR DIAGNOSTIC STRIP TEST SCH ×4 (05:37→21:00)
[2020-05-16 06:51] LABS: BASOPHILS % 1.1 % (0.0-2.0); EOSINOPHILS % 2.7 % (0.0-5.0); HEMATOCRIT. 31.4 % (42.0-52.0); LYMPHOCYTES % 12.5 % (20.0-50.0); MEAN CORPUSCULAR HEMOGLOBIN 28.1 pg (28.0-32.0); MEAN CORPUSCULAR VOLUME 88.4 fL (80.0-94.0); MEAN PLATELET VOLUME 8.9 fl (7.4-10.4); MONOCYTES % 12.4 % (2.0-8.0); NEUTROPHILS % 71.3 % (40.0-76.0); PLATELET 190 x1000/uL (130-400); RED BLOOD CELL COUNT 3.55 mill/uL (4.7-6.1)
[2020-05-16] MEDS: INSULIN LISPRO 100 UNITS/ML SUBCUT SCH ×4 (07:48→21:00)
[2020-05-16 08:00] VITALS: BP 126/82
[2020-05-16] MEDS: AMLODIPINE 10MG TABLET PO SCH (09:00)
[2020-05-16] MEDS: CARVEDILOL 6.25 MG TABLET PO SCH ×2 (09:00→21:00)
[2020-05-16] MEDS: LOSARTAN POTASSIUM 100 MG TABLET PO SCH (09:00)
[2020-05-16] MEDS: FOLIC ACID/VITAMIN B COMP W-C TABLET PO SCH (09:27)
[2020-05-16 12:00] VITALS: BP 132/81
[2020-05-16 16:00] VITALS: BP 148/82
[2020-05-16 20:00] VITALS: BP 143/46
[2020-05-16] MEDS: ATORVASTATIN CALCIUM 40MG TABLET PO SCH (22:56)
[2020-05-16] MEDS: ENOXAPARIN 30MG/0.3ML SYR SUBCUT SCH (22:58)
[2020-05-17] MEDS: SODIUM CHLORIDE 0.9% INJ 3ML FLUSH IVF SCH ×2 (05:37→22:00)
[2020-05-17] MEDS: BLOOD SUGAR DIAGNOSTIC STRIP TEST SCH ×4 (07:08→21:00)
[2020-05-17 07:44] LABS: BASOPHILS % 1.1 % (0.0-2.0); EOSINOPHILS % 3.2 % (0.0-5.0); HEMATOCRIT. 29.3 % (42.0-52.0); HEMOGLOBIN. 9.7 g/dL (14.0-18.0); LYMPHOCYTES % 11.7 % (20.0-50.0); MEAN CORPUSCULAR HEMOGLOBIN 28.2 pg (28.0-32.0); MEAN CORPUSCULAR VOLUME 85.5 fL (80.0-94.0); MONOCYTES % 10.5 % (2.0-8.0); NEUTROPHILS % 73.5 % (40.0-76.0); PLATELET 222 x1000/uL (130-400); RED BLOOD CELL COUNT 3.42 mill/uL (4.7-6.1); RED CELL DISTRIBUTION WIDTH 19.1 % (11.6-14.6)
[2020-05-17] MEDS: INSULIN LISPRO 100 UNITS/ML SUBCUT SCH ×4 (07:50→21:00)
[2020-05-17 08:00] VITALS: BP 126/98
[2020-05-17] MEDS: CARVEDILOL 6.25 MG TABLET PO SCH ×2 (10:27→22:09)
[2020-05-17] MEDS: AMLODIPINE 10MG TABLET PO SCH (10:28)
[2020-05-17] MEDS: LOSARTAN POTASSIUM 100 MG TABLET PO SCH (10:28)
[2020-05-17] MEDS: FOLIC ACID/VITAMIN B COMP W-C TABLET PO SCH (10:28)
[2020-05-17 20:00] VITALS: BP 154/82
[2020-05-17] MEDS: ATORVASTATIN CALCIUM 40MG TABLET PO SCH (22:09)
[2020-05-17] MEDS: ENOXAPARIN 30MG/0.3ML SYR SUBCUT SCH (22:09)
[2020-05-18 06:27] LABS: BASOPHILS % 1.8 % (0.0-2.0); EOSINOPHILS % 3.2 % (0.0-5.0); HEMATOCRIT. 29.7 % (42.0-52.0); HEMOGLOBIN. 9.6 g/dL (14.0-18.0); LYMPHOCYTES % 13.6 % (20.0-50.0); MEAN CORPUSCULAR HEMOGLOBIN 28.6 pg (28.0-32.0); MEAN CORPUSCULAR VOLUME 88.1 fL (80.0-94.0); MEAN PLATELET VOLUME 9.4 fl (7.4-10.4); MONOCYTES % 14.3 % (2.0-8.0); NEUTROPHILS % 67.1 % (40.0-76.0); PLATELET 198 x1000/uL (130-400); RED BLOOD CELL COUNT 3.37 mill/uL (4.7-6.1); RED CELL DISTRIBUTION WIDTH 18.9 % (11.6-14.6)
[2020-05-18] MEDS: BLOOD SUGAR DIAGNOSTIC STRIP TEST SCH ×4 (07:20→20:42)
[2020-05-18] MEDS: INSULIN LISPRO 100 UNITS/ML SUBCUT SCH ×4 (07:50→20:42)
[2020-05-18 09:43] VITALS: BP 171/101
[2020-05-18] MEDS: CARVEDILOL 6.25 MG TABLET PO SCH ×2 (11:20→21:33)
[2020-05-18] MEDS: LOSARTAN POTASSIUM 100 MG TABLET PO SCH (11:20)
[2020-05-18] MEDS: FOLIC ACID/VITAMIN B COMP W-C TABLET PO SCH (11:20)
[2020-05-18] MEDS: AMLODIPINE 10MG TABLET PO SCH (11:21)
[2020-05-18] MEDS: SODIUM CHLORIDE 0.9% INJ 3ML FLUSH IVF SCH ×2 (13:23→18:43)
[2020-05-18 13:57] LABS: HEPATITIS B SURFACE AB 63.7 mIU/mL
[2020-05-18 14:08] LABS: HEPATITIS B SURFACE ANTIGEN NEGATIVE
[2020-05-18 14:38] LABS: HEPATITIS A AB IGM React (NEGATIVE)
[2020-05-18 20:00] VITALS: BP 153/89
[2020-05-18] MEDS: ATORVASTATIN CALCIUM 40MG TABLET PO SCH (21:32)
[2020-05-18] MEDS: ENOXAPARIN 30MG/0.3ML SYR SUBCUT SCH (21:33)
[2020-05-19] MEDS: BLOOD SUGAR DIAGNOSTIC STRIP TEST SCH ×4 (06:13→20:32)
[2020-05-19 06:45] LABS: BASOPHILS % 1.7 % (0.0-2.0); EOSINOPHILS % 2.7 % (0.0-5.0); HEMATOCRIT. 29.7 % (42.0-52.0); HEMOGLOBIN. 9.5 g/dL (14.0-18.0); LYMPHOCYTES % 13.9 % (20.0-50.0); MEAN CORPUSCULAR VOLUME 87.8 fL (80.0-94.0); MEAN PLATELET VOLUME 9.2 fl (7.4-10.4); MONOCYTES % 11.5 % (2.0-8.0); NEUTROPHILS % 70.2 % (40.0-76.0); PLATELET 219 x1000/uL (130-400); RED BLOOD CELL COUNT 3.39 mill/uL (4.7-6.1); RED CELL DISTRIBUTION WIDTH 18.9 % (11.6-14.6)
[2020-05-19 08:00] VITALS: BP 127/47
[2020-05-19] MEDS: CARVEDILOL 6.25 MG TABLET PO SCH ×2 (09:00→20:56)
[2020-05-19] MEDS: LOSARTAN POTASSIUM 100 MG TABLET PO SCH (09:00)
[2020-05-19] MEDS: AMLODIPINE 10MG TABLET PO SCH (09:00)
[2020-05-19] MEDS: INSULIN LISPRO 100 UNITS/ML SUBCUT SCH ×4 (10:17→20:57)
[2020-05-19] MEDS: FOLIC ACID/VITAMIN B COMP W-C TABLET PO SCH (10:17)
[2020-05-19] MEDS ORDERED: HEPARIN SODIUM 1,000 UNIT/1ML VIAL IV NR (12:30)
[2020-05-19 20:00] VITALS: BP 174/101
[2020-05-19] MEDS: CLONIDINE 0.1MG TABLET PO PRN (20:56)
[2020-05-19] MEDS: ATORVASTATIN CALCIUM 40MG TABLET PO SCH (20:56)
[2020-05-19] MEDS: ENOXAPARIN 30MG/0.3ML SYR SUBCUT SCH (20:57)
[2020-05-19] MEDS: SODIUM CHLORIDE 0.9% INJ 3ML FLUSH IVF SCH (22:00)
[2020-05-20] MEDS: SODIUM CHLORIDE 0.9% INJ 3ML FLUSH IVF SCH ×3 (05:11→21:45)
[2020-05-20] MEDS: BLOOD SUGAR DIAGNOSTIC STRIP TEST SCH ×4 (06:24→21:44)
[2020-05-20] MEDS: INSULIN LISPRO 100 UNITS/ML SUBCUT SCH ×4 (06:41→21:00)
[2020-05-20 08:00] VITALS: BP 152/86
[2020-05-20] MEDS: FOLIC ACID/VITAMIN B COMP W-C TABLET PO SCH (09:58)
[2020-05-20] MEDS: LOSARTAN POTASSIUM 100 MG TABLET PO SCH (09:59)
[2020-05-20] MEDS: AMLODIPINE 10MG TABLET PO SCH (09:59)
[2020-05-20] MEDS: CARVEDILOL 6.25 MG TABLET PO SCH ×2 (09:59→21:45)
[2020-05-20 20:24] VITALS: BP 181/46
[2020-05-20] MEDS: ATORVASTATIN CALCIUM 40MG TABLET PO SCH (21:45)
[2020-05-20] MEDS: ENOXAPARIN 30MG/0.3ML SYR SUBCUT SCH (21:46)
[2020-05-21] VITALS: BP 176/72
[2020-05-21] MEDS: CLONIDINE 0.1MG TABLET PO PRN (01:26)
[2020-05-21 04:00] VITALS: BP 151/98
[2020-05-21] MEDS: BLOOD SUGAR DIAGNOSTIC STRIP TEST SCH ×4 (06:31→20:55)
[2020-05-21] MEDS: SODIUM CHLORIDE 0.9% INJ 3ML FLUSH IVF SCH ×3 (06:32→21:06)
[2020-05-21 08:00] VITALS: BP 198/66
[2020-05-21 08:38] LABS: BASOPHILS % 1.4 % (0.0-2.0); EOSINOPHILS % 2.4 % (0.0-5.0); HEMATOCRIT. 30.3 % (42.0-52.0); HEMOGLOBIN. 9.6 g/dL (14.0-18.0); MEAN CORPUSCULAR HEMOGLOBIN 27.8 pg (28.0-32.0); MEAN CORPUSCULAR VOLUME 87.9 fL (80.0-94.0); MEAN PLATELET VOLUME 9.5 fl (7.4-10.4); MONOCYTES % 8.4 % (2.0-8.0); NEUTROPHILS % 77.8 % (40.0-76.0); PLATELET 196 x1000/uL (130-400); RED BLOOD CELL COUNT 3.44 mill/uL (4.7-6.1); RED CELL DISTRIBUTION WIDTH 18.5 % (11.6-14.6)
[2020-05-21] MEDS: FOLIC ACID/VITAMIN B COMP W-C TABLET PO SCH (08:53)
[2020-05-21] MEDS: LOSARTAN POTASSIUM 100 MG TABLET PO SCH (08:54)
[2020-05-21] MEDS: CARVEDILOL 6.25 MG TABLET PO SCH ×2 (08:54→20:49)
[2020-05-21] MEDS: AMLODIPINE 10MG TABLET PO SCH (08:54)
[2020-05-21] MEDS: INSULIN LISPRO 100 UNITS/ML SUBCUT SCH ×4 (08:55→21:06)
[2020-05-21 20:00] VITALS: BP 200/91
[2020-05-21] MEDS: ACETAMINOPHEN 325MG TABLET PO PRN (20:49)
[2020-05-21] MEDS: ATORVASTATIN CALCIUM 40MG TABLET PO SCH (20:49)
[2020-05-21] MEDS: ENOXAPARIN 30MG/0.3ML SYR SUBCUT SCH (20:49)
[2020-05-21] MEDS: DIPHENHYDRAMINE 50MG/ML VIAL IV PRN (21:00)
[2020-05-22] MEDS: CLONIDINE 0.1MG TABLET PO PRN (00:51)
[2020-05-22] MEDS: ACETAMINOPHEN 325MG TABLET PO PRN ×3 (01:04→22:07)
[2020-05-22 03:19] VITALS: BP 147/74
[2020-05-22] MEDS: SODIUM CHLORIDE 0.9% INJ 3ML FLUSH IVF SCH ×3 (06:00→22:08)
[2020-05-22] MEDS: INSULIN LISPRO 100 UNITS/ML SUBCUT SCH ×4 (06:27→21:00)
[2020-05-22] MEDS: BLOOD SUGAR DIAGNOSTIC STRIP TEST SCH ×4 (06:27→21:00)
[2020-05-22 08:00] VITALS: BP 178/77
[2020-05-22 08:42] LABS: BASOPHILS % 1.6 % (0.0-2.0); EOSINOPHILS % 1.1 % (0.0-5.0); HEMATOCRIT. 30.5 % (42.0-52.0); HEMOGLOBIN. 9.8 g/dL (14.0-18.0); LYMPHOCYTES % 8.7 % (20.0-50.0); MEAN CORPUSCULAR VOLUME 87.5 fL (80.0-94.0); MEAN PLATELET VOLUME 9.5 fl (7.4-10.4); MONOCYTES % 6.2 % (2.0-8.0); NEUTROPHILS % 82.4 % (40.0-76.0); PLATELET 174 x1000/uL (130-400); RED BLOOD CELL COUNT 3.49 mill/uL (4.7-6.1)
[2020-05-22] MEDS: FOLIC ACID/VITAMIN B COMP W-C TABLET PO SCH (09:53)
[2020-05-22] MEDS: CARVEDILOL 6.25 MG TABLET PO SCH ×2 (09:54→22:08)
[2020-05-22] MEDS: AMLODIPINE 10MG TABLET PO SCH (09:54)
[2020-05-22] MEDS: LOSARTAN POTASSIUM 100 MG TABLET PO SCH (09:54)
[2020-05-22] MEDS ORDERED: SODIUM BICARBONATE 8.4% 1 MEQ/ML 50ML SYR IV STA (11:43)
[2020-05-22] MEDS ORDERED: HEPARIN SODIUM 1,000 UNIT/1ML VIAL IV SCH (12:30)
[2020-05-22] MEDS ORDERED: INSULIN REGULAR (HUMULIN R) UD 100 UNITS/ML SYR IV NR (13:00)
[2020-05-22] MEDS ORDERED: SODIUM POLYSTYRENE SULFONATE 15 G/60 ML BOT PO NR (13:00)
[2020-05-22] MEDS ORDERED: DEXTROSE 50% WATER 50ML SYRINGE IV NR (13:00)
[2020-05-22 20:28] VITALS: BP 212/73
[2020-05-22 20:38] VITALS: BP 133/72
[2020-05-22] MEDS: ATORVASTATIN CALCIUM 40MG TABLET PO SCH (22:07)
[2020-05-22] MEDS: ENOXAPARIN 30MG/0.3ML SYR SUBCUT SCH (22:07)
[2020-05-22] MEDS: DIPHENHYDRAMINE 50MG/ML VIAL IV PRN (22:18)
[2020-05-23] MEDS: LOPERAMIDE HCL 2MG CAPSULE PO PRN (03:15)
[2020-05-23] MEDS: DIPHENHYDRAMINE 50MG/ML VIAL IV PRN ×2 (03:15→21:28)
[2020-05-23 06:01] VITALS: BP 141/84
[2020-05-23] MEDS: BLOOD SUGAR DIAGNOSTIC STRIP TEST SCH ×4 (06:33→21:28)
[2020-05-23] MEDS: SODIUM CHLORIDE 0.9% INJ 3ML FLUSH IVF SCH ×3 (06:33→21:28)
[2020-05-23] MEDS: INSULIN LISPRO 100 UNITS/ML SUBCUT SCH ×4 (07:50→21:00)
[2020-05-23 08:56] VITALS: BP 174/66
[2020-05-23] MEDS ORDERED: VANCOMYCIN 750 MG PREMIX 150 ML IV SCH (10:00)
[2020-05-23] MEDS: AMLODIPINE 10MG TABLET PO SCH (10:37)
[2020-05-23] MEDS: FOLIC ACID/VITAMIN B COMP W-C TABLET PO SCH (10:37)
[2020-05-23] MEDS: LOSARTAN POTASSIUM 100 MG TABLET PO SCH (10:37)
[2020-05-23] MEDS: CARVEDILOL 6.25 MG TABLET PO SCH ×2 (10:38→21:27)
[2020-05-23 20:00] VITALS: BP 124/72
[2020-05-23] MEDS: ATORVASTATIN CALCIUM 40MG TABLET PO SCH (21:27)
[2020-05-23] MEDS: ENOXAPARIN 30MG/0.3ML SYR SUBCUT SCH (21:28)
[2020-05-24] MEDS: SODIUM CHLORIDE 0.9% INJ 3ML FLUSH IVF SCH ×3 (06:00→22:00)
[2020-05-24 06:54] LABS: HEMATOCRIT. 30.7 % (42.0-52.0); HEMOGLOBIN. 9.9 g/dL (14.0-18.0); MEAN CORPUSCULAR HEMOGLOBIN 28.2 pg (28.0-32.0); MEAN CORPUSCULAR VOLUME 87.9 fL (80.0-94.0); MEAN PLATELET VOLUME 10.3 fl (7.4-10.4); PLATELET 139 x1000/uL (130-400); RED BLOOD CELL COUNT 3.49 mill/uL (4.7-6.1)
[2020-05-24] MEDS: BLOOD SUGAR DIAGNOSTIC STRIP TEST SCH ×4 (06:59→21:33)
[2020-05-24] MEDS: INSULIN LISPRO 100 UNITS/ML SUBCUT SCH ×4 (07:50→21:32)
[2020-05-24 08:00] VITALS: BP 130/80
[2020-05-24] MEDS: CARVEDILOL 6.25 MG TABLET PO SCH ×2 (09:00→21:11)
[2020-05-24] MEDS: LOSARTAN POTASSIUM 100 MG TABLET PO SCH (09:00)
[2020-05-24] MEDS: AMLODIPINE 10MG TABLET PO SCH (09:00)
[2020-05-24] MEDS ORDERED: SODIUM BICARBONATE 8.4% 1 MEQ/ML 50ML SYR IV NR (10:30)
[2020-05-24] MEDS: FOLIC ACID/VITAMIN B COMP W-C TABLET PO SCH (11:15)
[2020-05-24] MEDS ORDERED: INSULIN REGULAR (HUMULIN R) UD 100 UNITS/ML SYR IV NR (11:30)
[2020-05-24] MEDS ORDERED: DEXTROSE 50% WATER 50ML SYRINGE IV NR (11:30)
[2020-05-24] MEDS ORDERED: SODIUM POLYSTYRENE SULFONATE 15 G/60 ML BOT PO NR (12:00)
[2020-05-24] MEDS ORDERED: VANCOMYCIN 750 MG PREMIX 150 ML IV SCH (14:00)
[2020-05-24 14:07] LABS: PLATELET ESTIMATE NORMAL
[2020-05-24 20:00] VITALS: BP 115/62
[2020-05-24] MEDS: ENOXAPARIN 30MG/0.3ML SYR SUBCUT SCH (21:09)
[2020-05-24] MEDS: ATORVASTATIN CALCIUM 40MG TABLET PO SCH (21:10)
[2020-05-24] MEDS: ACETAMINOPHEN 325MG TABLET PO PRN (21:10)
[2020-05-25 03:37] VITALS: BP 86/62
[2020-05-25] MEDS: DIPHENHYDRAMINE 50MG/ML VIAL IV PRN ×4 (04:06→20:44)
[2020-05-25 05:02] VITALS: BP 97/62
[2020-05-25] MEDS: INSULIN LISPRO 100 UNITS/ML SUBCUT SCH ×4 (07:20→21:00)
[2020-05-25] MEDS: BLOOD SUGAR DIAGNOSTIC STRIP TEST SCH ×4 (07:41→21:01)
[2020-05-25 08:00] VITALS: BP 105/56
[2020-05-25] MEDS: FOLIC ACID/VITAMIN B COMP W-C TABLET PO SCH (08:13)
[2020-05-25] MEDS: SODIUM CHLORIDE 0.9% INJ 3ML FLUSH IVF SCH ×3 (08:20→21:01)
[2020-05-25] MEDS: AMLODIPINE 10MG TABLET PO SCH (08:26)
[2020-05-25] MEDS: CARVEDILOL 6.25 MG TABLET PO SCH ×2 (08:26→20:43)
[2020-05-25] MEDS: LOSARTAN POTASSIUM 100 MG TABLET PO SCH (08:26)
[2020-05-25 12:00] VITALS: BP 120/70
[2020-05-25] MEDS: LOPERAMIDE HCL 2MG CAPSULE PO PRN (15:12)
[2020-05-25] MEDS: CEFAZOLIN 1000MG PREMIX 50 ML IV SCH (15:13)
[2020-05-25] MEDS: ACETAMINOPHEN 325MG TABLET PO PRN (15:13)
[2020-05-25 16:00] VITALS: BP 91/58
[2020-05-25 20:00] VITALS: BP 88/63
[2020-05-25] MEDS: ENOXAPARIN 30MG/0.3ML SYR SUBCUT SCH (20:42)
[2020-05-25] MEDS: ATORVASTATIN CALCIUM 40MG TABLET PO SCH (20:43)
[2020-05-26] VITALS: BP 92/72
[2020-05-26 04:00] VITALS: BP 91/57
[2020-05-26] MEDS: SODIUM CHLORIDE 0.9% INJ 3ML FLUSH IVF SCH ×3 (05:36→22:42)
[2020-05-26] MEDS: BLOOD SUGAR DIAGNOSTIC STRIP TEST SCH ×3 (05:36→21:00)
[2020-05-26 07:15] LABS: EOSINOPHILS % 2.8 % (0.0-5.0); HEMOGLOBIN. 10.4 g/dL (14.0-18.0); LYMPHOCYTES % 8.3 % (20.0-50.0); MEAN CORPUSCULAR HEMOGLOBIN 28.5 pg (28.0-32.0); MEAN PLATELET VOLUME 10.3 fl (7.4-10.4); MONOCYTES % 10.6 % (2.0-8.0); NEUTROPHILS % 77.3 % (40.0-76.0); PLATELET 126 x1000/uL (130-400); RED BLOOD CELL COUNT 3.64 mill/uL (4.7-6.1); RED CELL DISTRIBUTION WIDTH 19.1 % (11.6-14.6)
[2020-05-26] MEDS: INSULIN LISPRO 100 UNITS/ML SUBCUT SCH ×4 (07:20→21:00)
[2020-05-26 08:00] VITALS: BP 106/67
[2020-05-26] MEDS: LOSARTAN POTASSIUM 100 MG TABLET PO SCH (08:18)
[2020-05-26] MEDS: AMLODIPINE 10MG TABLET PO SCH (08:18)
[2020-05-26] MEDS: CARVEDILOL 6.25 MG TABLET PO SCH ×2 (08:19→21:00)
[2020-05-26] MEDS: FOLIC ACID/VITAMIN B COMP W-C TABLET PO SCH (09:23)
[2020-05-26] MEDS ORDERED: HEPARIN SODIUM 1,000 UNIT/1ML VIAL IV NR (10:00)
[2020-05-26 12:00] VITALS: BP 104/69
[2020-05-26] MEDS ORDERED: LIDOCAINE HCL 1% 20ML VIAL (Pyxis) INJ ONE (13:43)
[2020-05-26] MEDS ORDERED: SODIUM BICARBONATE 4% (2.4MEQ) 5ML VIAL IV ONE (13:43)
[2020-05-26] MEDS ORDERED: LIDOCAINE HCL/EPINEPHRINE 1%-EPI 1:100,000 20 ML VIAL ONE (13:45)
[2020-05-26 15:39] LABS: INR 1.2; PROTHROMBIN TIME 12.5 sec (9.6-11.0)
[2020-05-26 16:00] VITALS: BP 105/51
[2020-05-26 20:00] VITALS: BP 109/69
[2020-05-26] MEDS: ATORVASTATIN CALCIUM 40MG TABLET PO SCH (22:29)
[2020-05-26] MEDS: ENOXAPARIN 30MG/0.3ML SYR SUBCUT SCH (22:43)
[2020-05-27] VITALS: BP 110/60
[2020-05-27 04:00] VITALS: BP 115/65
[2020-05-27] MEDS: SODIUM CHLORIDE 0.9% INJ 3ML FLUSH IVF SCH ×3 (07:05→21:49)
[2020-05-27] MEDS: BLOOD SUGAR DIAGNOSTIC STRIP TEST SCH ×4 (07:12→21:48)
[2020-05-27] MEDS: INSULIN LISPRO 100 UNITS/ML SUBCUT SCH ×4 (07:50→22:55)
[2020-05-27 08:00] VITALS: BP 119/71
[2020-05-27] MEDS: LOSARTAN POTASSIUM 100 MG TABLET PO SCH (09:58)
[2020-05-27] MEDS: FOLIC ACID/VITAMIN B COMP W-C TABLET PO SCH (09:58)
[2020-05-27] MEDS: AMLODIPINE 10MG TABLET PO SCH (09:58)
[2020-05-27] MEDS: CARVEDILOL 6.25 MG TABLET PO SCH ×2 (09:59→21:00)
[2020-05-27 12:00] VITALS: BP 121/74
[2020-05-27] MEDS: CEFAZOLIN 1000MG PREMIX 50 ML IV SCH (15:35)
[2020-05-27 16:00] VITALS: BP 107/62
[2020-05-27 20:00] VITALS: BP 108/65
[2020-05-27] MEDS: ENOXAPARIN 30MG/0.3ML SYR SUBCUT SCH (21:00)
[2020-05-27] MEDS: ATORVASTATIN CALCIUM 40MG TABLET PO SCH (21:38)
[2020-05-27] MEDS: DIPHENHYDRAMINE 50MG/ML VIAL IV PRN (21:38)
[2020-05-28] VITALS: BP 110/69
[2020-05-28] MEDS: SODIUM CHLORIDE 0.9% INJ 3ML FLUSH IVF SCH ×3 (06:00→21:43)
[2020-05-28] MEDS: BLOOD SUGAR DIAGNOSTIC STRIP TEST SCH ×4 (07:19→21:42)
[2020-05-28] MEDS: INSULIN LISPRO 100 UNITS/ML SUBCUT SCH ×4 (07:20→22:09)
[2020-05-28 08:00] VITALS: BP 137/77
[2020-05-28 08:37] LABS: BASOPHILS % 0.8 % (0.0-2.0); EOSINOPHILS % 4.5 % (0.0-5.0); HEMATOCRIT. 29.3 % (42.0-52.0); HEMOGLOBIN. 9.4 g/dL (14.0-18.0); LYMPHOCYTES % 11.2 % (20.0-50.0); MEAN CORPUSCULAR HEMOGLOBIN 28.4 pg (28.0-32.0); MEAN CORPUSCULAR VOLUME 88.7 fL (80.0-94.0); MEAN PLATELET VOLUME 10.2 fl (7.4-10.4); MONOCYTES % 10.3 % (2.0-8.0); NEUTROPHILS % 73.2 % (40.0-76.0); PLATELET 106 x1000/uL (130-400); RED CELL DISTRIBUTION WIDTH 19.3 % (11.6-14.6)
[2020-05-28] MEDS: LOSARTAN POTASSIUM 100 MG TABLET PO SCH (08:40)
[2020-05-28] MEDS: AMLODIPINE 10MG TABLET PO SCH (08:41)
[2020-05-28] MEDS: CARVEDILOL 6.25 MG TABLET PO SCH ×2 (08:41→21:41)
[2020-05-28] MEDS: FOLIC ACID/VITAMIN B COMP W-C TABLET PO SCH (08:41)
[2020-05-28 12:00] VITALS: BP 134/80
[2020-05-28] MEDS: CEFAZOLIN 1000MG PREMIX 50 ML IV SCH (15:50)
[2020-05-28 16:00] VITALS: BP 126/76
[2020-05-28 20:00] VITALS: BP 121/75
[2020-05-28] MEDS: ENOXAPARIN 30MG/0.3ML SYR SUBCUT SCH (21:00)
[2020-05-28] MEDS: ATORVASTATIN CALCIUM 40MG TABLET PO SCH (21:41)
[2020-05-28] MEDS: DIPHENHYDRAMINE 50MG/ML VIAL IV PRN (21:45)
[2020-05-29] VITALS: BP 155/77
[2020-05-29] MEDS: DIPHENHYDRAMINE 50MG/ML VIAL IV PRN ×2 (01:55→22:31)
[2020-05-29 04:00] VITALS: BP 127/77
[2020-05-29] MEDS: SODIUM CHLORIDE 0.9% INJ 3ML FLUSH IVF SCH ×3 (06:20→22:10)
[2020-05-29] MEDS: BLOOD SUGAR DIAGNOSTIC STRIP TEST SCH ×4 (06:20→21:00)
[2020-05-29] MEDS: INSULIN LISPRO 100 UNITS/ML SUBCUT SCH ×4 (07:50→22:30)
[2020-05-29 08:00] VITALS: BP 129/76
[2020-05-29] MEDS: AMLODIPINE 10MG TABLET PO SCH (09:00)
[2020-05-29] MEDS: CARVEDILOL 6.25 MG TABLET PO SCH ×2 (09:00→22:08)
[2020-05-29] MEDS: LOSARTAN POTASSIUM 100 MG TABLET PO SCH (09:00)
[2020-05-29] MEDS: FOLIC ACID/VITAMIN B COMP W-C TABLET PO SCH (09:32)
[2020-05-29 09:34] LABS: BASOPHILS % 0.7 % (0.0-2.0); HEMATOCRIT. 31.1 % (42.0-52.0); HEMOGLOBIN. 9.8 g/dL (14.0-18.0); LYMPHOCYTES % 10.1 % (20.0-50.0); MEAN CORPUSCULAR HEMOGLOBIN 28.3 pg (28.0-32.0); MEAN CORPUSCULAR VOLUME 90.1 fL (80.0-94.0); MEAN PLATELET VOLUME 9.7 fl (7.4-10.4); MONOCYTES % 8.9 % (2.0-8.0); NEUTROPHILS % 75.3 % (40.0-76.0); PLATELET 101 x1000/uL (130-400); RED BLOOD CELL COUNT 3.45 mill/uL (4.7-6.1); RED CELL DISTRIBUTION WIDTH 19.3 % (11.6-14.6)
[2020-05-29 12:00] VITALS: BP 142/78
[2020-05-29] MEDS: CEFAZOLIN 1000MG PREMIX 50 ML IV SCH (15:53)
[2020-05-29 16:00] VITALS: BP 140/85
[2020-05-29 20:00] VITALS: BP 144/82
[2020-05-29] MEDS: ATORVASTATIN CALCIUM 40MG TABLET PO SCH (22:08)
[2020-05-29] MEDS: ENOXAPARIN 30MG/0.3ML SYR SUBCUT SCH (22:10)
[2020-05-30] VITALS: BP 149/56
[2020-05-30] MEDS ORDERED: ALTEPLASE 2MG/VIAL INJ SCH (02:00)
[2020-05-30 04:00] VITALS: BP 154/74
[2020-05-30] MEDS: SODIUM CHLORIDE 0.9% INJ 3ML FLUSH IVF SCH ×3 (06:33→21:34)
[2020-05-30] MEDS: BLOOD SUGAR DIAGNOSTIC STRIP TEST SCH ×4 (07:20→21:16)
[2020-05-30] MEDS: INSULIN LISPRO 100 UNITS/ML SUBCUT SCH ×4 (07:50→21:00)
[2020-05-30] MEDS: AMLODIPINE 10MG TABLET PO SCH (09:00)
[2020-05-30] MEDS: LOSARTAN POTASSIUM 100 MG TABLET PO SCH (09:00)
[2020-05-30] MEDS: CARVEDILOL 6.25 MG TABLET PO SCH ×2 (09:00→21:16)
[2020-05-30] MEDS: FOLIC ACID/VITAMIN B COMP W-C TABLET PO SCH (09:47)
[2020-05-30 12:00] VITALS: BP 140/80
[2020-05-30] MEDS: CEFAZOLIN 1000MG PREMIX 50 ML IV SCH (15:49)
[2020-05-30 20:00] VITALS: BP 156/54
[2020-05-30] MEDS: ENOXAPARIN 30MG/0.3ML SYR SUBCUT SCH (21:00)
[2020-05-30] MEDS: ATORVASTATIN CALCIUM 40MG TABLET PO SCH (21:16)
[2020-05-30] MEDS: DIPHENHYDRAMINE 50MG/ML VIAL IV PRN (23:47)
[2020-05-31] MEDS: SODIUM CHLORIDE 0.9% INJ 3ML FLUSH IVF SCH ×3 (06:03→23:37)
[2020-05-31] MEDS: CLONIDINE 0.1MG TABLET PO PRN (06:13)
[2020-05-31] MEDS: BLOOD SUGAR DIAGNOSTIC STRIP TEST SCH ×4 (07:20→21:58)
[2020-05-31] MEDS: INSULIN LISPRO 100 UNITS/ML SUBCUT SCH ×5 (07:50→23:36)
[2020-05-31 08:00] VITALS: BP 142/81
[2020-05-31 08:08] LABS: INR 1.1; PROTHROMBIN TIME 11.9 sec (9.6-11.0)
[2020-05-31] MEDS: AMLODIPINE 10MG TABLET PO SCH (09:00)
[2020-05-31] MEDS: CARVEDILOL 6.25 MG TABLET PO SCH ×2 (09:00→21:58)
[2020-05-31] MEDS: LOSARTAN POTASSIUM 100 MG TABLET PO SCH (09:00)
[2020-05-31] MEDS: FOLIC ACID/VITAMIN B COMP W-C TABLET PO SCH (09:00)
[2020-05-31] MEDS: CEFAZOLIN 1000MG PREMIX 50 ML IV SCH (17:54)
[2020-05-31 20:00] VITALS: BP 147/84
[2020-05-31] MEDS: ENOXAPARIN 30MG/0.3ML SYR SUBCUT SCH ×2 (21:00→21:58)
[2020-05-31] MEDS: ATORVASTATIN CALCIUM 40MG TABLET PO SCH (21:58)
[2020-05-31] MEDS: DIPHENHYDRAMINE 50MG/ML VIAL IV PRN (23:48)
[2020-06-01] VITALS (17 sets, daily range): BP systolic 108–160; BP diastolic 77–86
[2020-06-01] MEDS: DIPHENHYDRAMINE 50MG/ML VIAL IV PRN (06:19)
[2020-06-01] MEDS: SODIUM CHLORIDE 0.9% INJ 3ML FLUSH IVF SCH ×2 (06:20→15:14)
[2020-06-01] MEDS: BLOOD SUGAR DIAGNOSTIC STRIP TEST SCH ×2 (06:21→12:20)
[2020-06-01 07:30] LABS: BASOPHILS % 0.7 % (0.0-2.0); HEMATOCRIT. 27.8 % (42.0-52.0); LYMPHOCYTES % 11.3 % (20.0-50.0); MEAN CORPUSCULAR HEMOGLOBIN 28.6 pg (28.0-32.0); MEAN CORPUSCULAR VOLUME 88.3 fL (80.0-94.0); MEAN PLATELET VOLUME 9.7 fl (7.4-10.4); MONOCYTES % 10.2 % (2.0-8.0); NEUTROPHILS % 72.8 % (40.0-76.0); PLATELET 156 x1000/uL (130-400); RED BLOOD CELL COUNT 3.15 mill/uL (4.7-6.1); RED CELL DISTRIBUTION WIDTH 19.5 % (11.6-14.6)
[2020-06-01] MEDS: INSULIN LISPRO 100 UNITS/ML SUBCUT SCH ×2 (07:50→12:50)
[2020-06-01] MEDS ORDERED: SODIUM BICARBONATE 4% (2.4MEQ) 5ML VIAL IV ONE (08:42)
[2020-06-01] MEDS ORDERED: LIDOCAINE HCL 1% 20ML VIAL (Pyxis) INJ ONE (08:42)
[2020-06-01] MEDS ORDERED: FENTANYL CITRATE/PF 50MCG/ML 2ML VIAL ONE (08:51)
[2020-06-01] MEDS: AMLODIPINE 10MG TABLET PO SCH (09:00)
[2020-06-01] MEDS: CARVEDILOL 6.25 MG TABLET PO SCH (09:00)
[2020-06-01] MEDS: FOLIC ACID/VITAMIN B COMP W-C TABLET PO SCH (09:00)
[2020-06-01] MEDS: LOSARTAN POTASSIUM 100 MG TABLET PO SCH (09:00)
[2020-06-01] MEDS ORDERED: IOHEXOL-300 50 ML BOTTLE IV ONE (09:12)
[2020-06-01] MEDS: CEFAZOLIN 1000MG PREMIX 50 ML IV SCH (15:14)
[2020-06-01] MEDS ORDERED: SODIUM POLYSTYRENE SULFONATE 15 G/60 ML BOT PO NR (16:30)
== END 2020-06-01 17:34 | disposition home or self-care (01) | DRG 314 ==
LOC: ER 14:50 → 7WST 18:39 → EDBEDREQ 18:44 → ENRESERV 05-14 14:11 → 6WST 05-17 00:05 → 3WST 05-25 03:09 → 6EST 05-26 16:48
PROVIDERS: ADMIT Internal Medicine; ATTEND Internal Medicine
PROC: 5A1D70Z Performance of Urinary Filtration, Intermittent, Less than 6 Hours Per Day (ICD-10-PCS; 2020-05-13)
PROC: 5A1D70Z Performance of Urinary Filtration, Intermittent, Less than 6 Hours Per Day (ICD-10-PCS; 2020-05-16)
PROC: 5A1D70Z Performance of Urinary Filtration, Intermittent, Less than 6 Hours Per Day (ICD-10-PCS; 2020-05-19)
PROC: 5A1D70Z Performance of Urinary Filtration, Intermittent, Less than 6 Hours Per Day (ICD-10-PCS; 2020-05-22)
PROC: 5A1D70Z Performance of Urinary Filtration, Intermittent, Less than 6 Hours Per Day (ICD-10-PCS; 2020-05-24)
PROC: 02PAX3Z Removal of Infusion Device from Heart, External Approach (ICD-10-PCS; principal; 2020-05-26)
PROC: 5A1D70Z Performance of Urinary Filtration, Intermittent, Less than 6 Hours Per Day (ICD-10-PCS; 2020-05-26)
PROC: 0JHD3XZ Insertion of Tunneled Vascular Access Device into Right Upper Arm Subcutaneous Tissue and Fascia, Percutaneous Approach (ICD-10-PCS; 2020-05-28)
PROC: 06HY33Z Insertion of Infusion Device into Lower Vein, Percutaneous Approach (ICD-10-PCS; 2020-05-28)
PROC: B54BZZA Ultrasonography of Right Lower Extremity Veins, Guidance (ICD-10-PCS; 2020-05-28)
PROC: B51B1ZA Fluoroscopy of Right Lower Extremity Veins using Low Osmolar Contrast, Guidance (ICD-10-PCS; 2020-05-28)
PROC: 5A1D70Z Performance of Urinary Filtration, Intermittent, Less than 6 Hours Per Day (ICD-10-PCS; 2020-05-28)
PROC: 5A1D70Z Performance of Urinary Filtration, Intermittent, Less than 6 Hours Per Day (ICD-10-PCS; 2020-05-30)
PROC: 02HV33Z Insertion of Infusion Device into Superior Vena Cava, Percutaneous Approach (ICD-10-PCS; 2020-06-01)
PROC: B5181ZA Fluoroscopy of Superior Vena Cava using Low Osmolar Contrast, Guidance (ICD-10-PCS; 2020-06-01)
PROC: B548ZZA Ultrasonography of Superior Vena Cava, Guidance (ICD-10-PCS; 2020-06-01)
PROC: 5A1D70Z Performance of Urinary Filtration, Intermittent, Less than 6 Hours Per Day (ICD-10-PCS; 2020-06-01)
DX: T82.7XXA Infection and inflammatory reaction due to other cardiac and vascular devices, implants and grafts, initial encounter (principal); A41.01 Sepsis due to Methicillin susceptible Staphylococcus aureus; U07.1 COVID-19; N18.6 End stage renal disease; I12.0 Hypertensive chronic kidney disease with stage 5 chronic kidney disease or end stage renal disease; E87.5 Hyperkalemia; E11.51 Type 2 diabetes mellitus with diabetic peripheral angiopathy without gangrene; E66.01 Morbid (severe) obesity due to excess calories; E11.22 Type 2 diabetes mellitus with diabetic chronic kidney disease; Z89.611 Acquired absence of right leg above knee; Z89.612 Acquired absence of left leg above knee; Z99.2 Dependence on renal dialysis; Z86.73 Personal history of transient ischemic attack (TIA), and cerebral infarction without residual deficits; Z79.82 Long term (current) use of aspirin; Z79.891 Long term (current) use of opiate analgesic; Z79.899 Other long term (current) drug therapy; Z68.28 Body mass index [BMI] 28.0-28.9, adult
CPT/HCPCS: 36415; 36556; 36558; 36589; 71045; 76937; 77001; 80048; 80053; 80202; 82728; 82962; 83036; 84132; 85025; 86140; 86705; 86706; 86709; 86803; 87070; 87077; 87186; 87340; 87635; 93005; 93306; 99152; 99153; 99291; A6261; C1725; C1750; C1752; C1769; C1887; J0690; J1200; J1642; J1644; J1650; J1815; J2997; J3010; J3370; J3490; Q9967; G0500

== ENCOUNTER 2020-06-09 22:35 | Inpatient (IN) | payer MEDICARE, MEDICAID ==
[~2020-06-09] VITALS: Ht 114.3 cm; Wt 52.2 kg
[2020-06-09 23:05] LABS: BASOPHILS % 1.3 % (0.0-2.0); EOSINOPHILS % 4.4 % (0.0-5.0); HEMATOCRIT. 24.7 % (42.0-52.0); HEMOGLOBIN. 7.9 g/dL (14.0-18.0); LYMPHOCYTES % 8.9 % (20.0-50.0); MEAN CORPUSCULAR HEMOGLOBIN 28.9 pg (28.0-32.0); MEAN CORPUSCULAR VOLUME 90.2 fL (80.0-94.0); MEAN PLATELET VOLUME 8.5 fl (7.4-10.4); MONOCYTES % 10.3 % (2.0-8.0); NEUTROPHILS % 75.1 % (40.0-76.0); PLATELET 248 x1000/uL (130-400); RED BLOOD CELL COUNT 2.74 mill/uL (4.7-6.1); RED CELL DISTRIBUTION WIDTH 21.5 % (11.6-14.6)
[2020-06-09 23:13] LABS: CHLORIDE 97 mEq/L (98-107)
[2020-06-09 23:16] LABS: INR 1.1; PROTHROMBIN TIME 11.6 sec (9.6-11.0)
[2020-06-09 23:17] LABS: ETHANOL BLOOD < 10 mg/dL
[2020-06-09 23:20] LABS: LDL CHOLESTEROL 39 mg/dL (5-100)
[2020-06-09] MEDS ORDERED: IOHEXOL-350 100 ML BOTTLE ONE (23:20)
[2020-06-10] VITALS (7 sets, daily range): BP systolic 139–160; BP diastolic 77–95
[2020-06-10] MEDS ORDERED: ASPIRIN 325MG TABLET PO ONE
[2020-06-10] MEDS ORDERED: ATORVASTATIN CALCIUM 40MG TABLET PO STA
[2020-06-10] MEDS ORDERED: HEPARIN 5000 UNITS/ML VIAL IV ONE (02:00)
[2020-06-10] MEDS ORDERED: ACETAMINOPHEN 325MG TABLET PO ONE (02:00)
[2020-06-10] MEDS ORDERED: ENOXAPARIN 60MG/0.6ML SYR SUBCUT SCH ×2 (03:00→23:00)
[2020-06-10] MEDS: MORPHINE SULFATE 2 MG/ML CPJ (NOT FOR IM USE) IV PRN ×4 (05:12→22:46)
[2020-06-10] MEDS ORDERED: CLONIDINE 0.1MG TABLET PO PRN (21:15)
[2020-06-11] VITALS (16 sets, daily range): BP systolic 140–158; BP diastolic 75–94
[2020-06-11] MEDS: MORPHINE SULFATE 2 MG/ML CPJ (NOT FOR IM USE) IV PRN ×3 (04:22→17:23)
[2020-06-11] MEDS ORDERED: HYDROCODONE/ACETAMINOPHEN 10/325MG TABLET PO PRN (12:45)
[2020-06-11] MEDS ORDERED: ONDANSETRON HCL 4MG/2ML INJ IV PRN (12:45)
[2020-06-11] MEDS ORDERED: ACETAMINOPHEN 325MG TABLET PO PRN (12:45)
[2020-06-11] MEDS: INSULIN LISPRO 100 UNITS/ML SUBCUT SCH ×3 (13:00→20:24)
[2020-06-11] MEDS: DIPHENHYDRAMINE 50MG CAPSULE PO PRN (15:57)
[2020-06-11] MEDS: BLOOD SUGAR DIAGNOSTIC STRIP TEST SCH ×2 (17:30→20:25)
[2020-06-11 18:27] LABS: BASOPHILS % 1.1 % (0.0-2.0); EOSINOPHILS % 3.7 % (0.0-5.0); HEMATOCRIT. 23.6 % (42.0-52.0); HEMOGLOBIN. 7.5 g/dL (14.0-18.0); LYMPHOCYTES % 9.9 % (20.0-50.0); MEAN CORPUSCULAR VOLUME 90.7 fL (80.0-94.0); MEAN PLATELET VOLUME 8.7 fl (7.4-10.4); MONOCYTES % 9.6 % (2.0-8.0); NEUTROPHILS % 75.7 % (40.0-76.0); PLATELET 197 x1000/uL (130-400)
[2020-06-11 20:44] LABS: PLATELET ESTIMATE NORMAL
[2020-06-11] MEDS ORDERED: ENOXAPARIN 60MG/0.6ML SYR SUBCUT SCH (21:00)
[2020-06-12] VITALS (7 sets, daily range): BP systolic 143–173; BP diastolic 81–93
[2020-06-12] MEDS: MORPHINE SULFATE 2 MG/ML CPJ (NOT FOR IM USE) IV PRN ×2 (00:54→05:51)
[2020-06-12] MEDS: DIPHENHYDRAMINE 50MG CAPSULE PO PRN (05:50)
[2020-06-12 06:06] LABS: EOSINOPHILS % 5.2 % (0.0-5.0); HEMATOCRIT. 24.6 % (42.0-52.0); HEMOGLOBIN. 7.9 g/dL (14.0-18.0); LYMPHOCYTES % 13.4 % (20.0-50.0); MEAN CORPUSCULAR HEMOGLOBIN 29.2 pg (28.0-32.0); MEAN CORPUSCULAR VOLUME 90.5 fL (80.0-94.0); MEAN PLATELET VOLUME 8.9 fl (7.4-10.4); MONOCYTES % 11.1 % (2.0-8.0); NEUTROPHILS % 69.3 % (40.0-76.0); PLATELET 208 x1000/uL (130-400); RED BLOOD CELL COUNT 2.72 mill/uL (4.7-6.1); RED CELL DISTRIBUTION WIDTH 22.7 % (11.6-14.6)
[2020-06-12 07:26] LABS: PHOSPHORUS 10.2 mg/dL (2.5-4.9)
[2020-06-12] MEDS: BLOOD SUGAR DIAGNOSTIC STRIP TEST SCH ×4 (07:30→20:30)
[2020-06-12] MEDS: INSULIN LISPRO 100 UNITS/ML SUBCUT SCH ×2 (08:00→12:44)
[2020-06-12] MEDS ORDERED: DEXTROSE 50% WATER 50ML SYRINGE IV SCH (11:00)
[2020-06-12] MEDS ORDERED: SODIUM BICARBONATE 8.4% 1 MEQ/ML 50ML SYR IV SCH (11:00)
[2020-06-12] MEDS ORDERED: INSULIN REGULAR (HUMULIN R) 300UNITS/3ML VIAL IV SCH (11:00)
[2020-06-12] MEDS: FOLIC ACID/VITAMIN B COMP W-C TABLET PO SCH (11:38)
[2020-06-12] MEDS ORDERED: SODIUM POLYSTYRENE SULFONATE 15 G/60 ML BOT PO SCH (12:00)
[2020-06-12] MEDS: CEFAZOLIN 500 MG in DEXTROSE 5% WATER 50 ML IV SCH (12:43)
[2020-06-12] MEDS: DEXTROSE 50% WATER 50ML SYRINGE IV PRN ×2 (13:23→15:27)
[2020-06-12] MEDS: CALCIUM ACETATE 667MG CAPSULE PO SCH ×2 (13:59→18:00)
[2020-06-12] MEDS: DEXTROSE 5% WATER 1,000 ML IV SCH (16:58)
[2020-06-13] VITALS: BP 159/90
[2020-06-13] MEDS: BLOOD SUGAR DIAGNOSTIC STRIP TEST SCH ×4 (00:32→16:30)
[2020-06-13] MEDS: DIPHENHYDRAMINE 50MG CAPSULE PO PRN (01:55)
[2020-06-13 02:00] VITALS: BP 167/88
[2020-06-13] MEDS: MORPHINE SULFATE 2 MG/ML CPJ (NOT FOR IM USE) IV PRN ×2 (03:22→13:48)
[2020-06-13 07:17] LABS: BASOPHILS % 0.9 % (0.0-2.0); HEMATOCRIT. 23.9 % (42.0-52.0); HEMOGLOBIN. 7.8 g/dL (14.0-18.0); LYMPHOCYTES % 11.5 % (20.0-50.0); MEAN CORPUSCULAR HEMOGLOBIN 29.4 pg (28.0-32.0); MEAN CORPUSCULAR VOLUME 90.7 fL (80.0-94.0); MEAN PLATELET VOLUME 8.7 fl (7.4-10.4); MONOCYTES % 10.5 % (2.0-8.0); NEUTROPHILS % 72.1 % (40.0-76.0); PLATELET 166 x1000/uL (130-400); RED BLOOD CELL COUNT 2.64 mill/uL (4.7-6.1); RED CELL DISTRIBUTION WIDTH 22.2 % (11.6-14.6)
[2020-06-13 08:00] VITALS: BP 145/86
[2020-06-13] MEDS: CALCIUM ACETATE 667MG CAPSULE PO SCH ×2 (08:32→13:47)
[2020-06-13] MEDS: FOLIC ACID/VITAMIN B COMP W-C TABLET PO SCH (08:32)
[2020-06-13 12:00] VITALS: BP 136/78
[2020-06-13] MEDS: DEXTROSE 5% WATER 1,000 ML IV SCH (12:00)
[2020-06-13] MEDS: CEFAZOLIN 500 MG in DEXTROSE 5% WATER 50 ML IV SCH (13:48)
[2020-06-13 15:18] VITALS: BP 149/82
[2020-06-13 16:00] VITALS: BP 145/80
== END 2020-06-13 17:10 | disposition home health service (06) | DRG 299 ==
LOC: ER 22:35 → EDBEDREQSVC 06-10 08:57 → ENRESERV 06-10 15:08 → 5EST 06-10 16:43
PROVIDERS: ADMIT Internal Medicine; ATTEND Internal Medicine
PROC: 5A1D70Z Performance of Urinary Filtration, Intermittent, Less than 6 Hours Per Day (ICD-10-PCS; principal; 2020-06-12)
DX: I82.621 Acute embolism and thrombosis of deep veins of right upper extremity (principal); E43 Unspecified severe protein-calorie malnutrition; N18.6 End stage renal disease; E87.1 Hypo-osmolality and hyponatremia; I12.0 Hypertensive chronic kidney disease with stage 5 chronic kidney disease or end stage renal disease; I82.619 Acute embolism and thrombosis of superficial veins of unspecified upper extremity; D64.9 Anemia, unspecified; E11.22 Type 2 diabetes mellitus with diabetic chronic kidney disease; E87.6 Hypokalemia; G51.0 Bell's palsy; E11.51 Type 2 diabetes mellitus with diabetic peripheral angiopathy without gangrene; E11.649 Type 2 diabetes mellitus with hypoglycemia without coma; E87.5 Hyperkalemia; Z86.73 Personal history of transient ischemic attack (TIA), and cerebral infarction without residual deficits; Z89.611 Acquired absence of right leg above knee; Z89.612 Acquired absence of left leg above knee; Z99.2 Dependence on renal dialysis; Z79.82 Long term (current) use of aspirin; Z79.891 Long term (current) use of opiate analgesic; Z79.899 Other long term (current) drug therapy
CPT/HCPCS: 36415; 70496; 70551; 71045; 80048; 80053; 80320; 82962; 83721; 84100; 84132; 84484; 85025; 93005; 93971; 97162; 99291; C1893; J0690; J1650; J1815; J2270; J3490; J7040; J7060; J7070; Q0163; Q9967; G0480

== ENCOUNTER 2021-01-14 13:48 | Inpatient (IN) | payer MEDICARE, MEDICAID ==
[~2021-01-14] VITALS: Ht 91.4 cm; Wt 55.0 kg
[2021-01-14] MEDS ORDERED: ACETAMINOPHEN 325MG TABLET PO STA (16:06)
[2021-01-14] MEDS ORDERED: HYDRALAZINE 20MG/ML VIAL IV ONE (16:15)
[2021-01-14 17:06] LABS: EOSINOPHILS % 0.1 % (0.0-5.0)
[2021-01-14 17:14] LABS: BASOPHILS % 0.4 % (0.0-2.0); HEMATOCRIT. 32.9 % (42.0-52.0); HEMOGLOBIN. 11.2 g/dL (14.0-18.0); LYMPHOCYTES % 8.5 % (20.0-50.0); MEAN CORPUSCULAR HEMOGLOBIN 32.2 pg (28.0-32.0); MEAN CORPUSCULAR VOLUME 94.7 fL (80.0-94.0); MEAN PLATELET VOLUME 9.8 fl (7.4-10.4); MONOCYTES % 3.6 % (2.0-8.0); NEUTROPHILS % 87.4 % (40.0-76.0); PLATELET 89 x1000/uL (130-400); RED BLOOD CELL COUNT 3.47 mill/uL (4.7-6.1)
[2021-01-14 17:15] LABS: CHLORIDE 102 mEq/L (98-107)
[2021-01-14] MEDS ORDERED: SODIUM CHLORIDE 0.9% 500 ML IV ONE (17:15)
[2021-01-14 17:16] LABS: INR 1.4; PROTHROMBIN TIME 14.8 sec (9.6-11.0)
[2021-01-14 17:22] LABS: CREATINE KINASE 95 IU/L (39-308)
[2021-01-14 17:37] LABS: PLATELET ESTIMATE DECREASED
[2021-01-14] MEDS ORDERED: CEFTRIAXONE 1 G PREMIX 50 ML IV ONE (18:00)
[2021-01-14] MEDS ORDERED: DEXTROSE 50% WATER 50ML SYRINGE IV ONE (19:15)
[2021-01-14] MEDS ORDERED: SODIUM CHLORIDE 0.9% 1,000 ML IV ONE (19:15)
[2021-01-14] MEDS ORDERED: HYDROCODONE/ACETAMINOPHEN 5/325MG TABLET PO ONE (19:15)
[2021-01-14] MEDS ORDERED: GUAIFENESIN 200MG/10ML SUGAR FREE UDC PO PRN (22:00)
[2021-01-14] MEDS ORDERED: ONDANSETRON HCL 4MG/2ML INJ IV PRN (22:00)
[2021-01-14] MEDS ORDERED: ACETAMINOPHEN 325MG TABLET PO PRN ×2 (22:00)
[2021-01-14] MEDS ORDERED: DOCUSATE SODIUM 100MG CAPSULE PO PRN (22:00)
[2021-01-14] MEDS ORDERED: CLONIDINE 0.1MG TABLET PO PRN (22:00)
[2021-01-14] MEDS ORDERED: NITROGLYCERIN 0.4MG TABLET SL SL PRN (22:00)
[2021-01-14] MEDS ORDERED: ZOLPIDEM TARTRATE 5MG TABLET PO PRN (22:00)
[2021-01-14] MEDS ORDERED: IPRATROPIUM/ALBUTEROL 0.5-3(2.5)MG/3ML NEB NEB PRN (22:00)
[2021-01-14] MEDS ORDERED: MAGNESIUM/ALUMINUM HYDROXIDE/SIMETHICONE 30ML UDC PO PRN (22:00)
[2021-01-14] MEDS ORDERED: MEROPENEM 1,000 MG in SODIUM CHLORIDE 0.9% 100 ML IV SCH (22:00)
[2021-01-14] MEDS ORDERED: DIPHENHYDRAMINE 50MG/ML VIAL IV PRN (22:00)
[2021-01-14] MEDS ORDERED: TRAMADOL 50MG TABLET PO PRN (22:00)
[2021-01-14 23:48] LABS: CREATINE KINASE MB FRACTION 6.1 ng/mL (0.5-3.6)
[2021-01-15] MEDS ORDERED: VANCOMYCIN 750 MG PREMIX 150 ML IV NR
[2021-01-15] MEDS ORDERED: MEROPENEM 500MG in NORMAL SALINE 50ML IV SCH (01:00)
[2021-01-15] MEDS ORDERED: SODIUM CHLORIDE 0.9% 500 ML IV ONE (01:30)
[2021-01-15 01:36] LABS: BASOPHILS % 0.3 % (0.0-2.0); EOSINOPHILS % 0.9 % (0.0-5.0); HEMATOCRIT. 33.3 % (42.0-52.0); HEMOGLOBIN. 11.1 g/dL (14.0-18.0); LYMPHOCYTES % 30.3 % (20.0-50.0); MEAN CORPUSCULAR HEMOGLOBIN 32.3 pg (28.0-32.0); MEAN CORPUSCULAR VOLUME 97.4 fL (80.0-94.0); MEAN PLATELET VOLUME 9.8 fl (7.4-10.4); MONOCYTES % 2.3 % (2.0-8.0); NEUTROPHILS % 66.2 % (40.0-76.0); PLATELET 80 x1000/uL (130-400); RED BLOOD CELL COUNT 3.42 mill/uL (4.7-6.1); RED CELL DISTRIBUTION WIDTH 22.4 % (11.6-14.6)
[2021-01-15] MEDS ORDERED: DEXTROSE 50% WATER 50ML SYRINGE IV ONE (02:00)
[2021-01-15] MEDS ORDERED: DEXT 10% WATER 1,000 ML IV ONE (02:00)
[2021-01-15 02:31] LABS: BG BASE EXCESS -9.3 mmol/L (-2.0-2.0); BG CARBOXYHEMOGLOBIN 0.3 % (0.5-1.5); BG DEOXYHEMOGLOBIN 1.6 % (0.0-5.0); BG FRACTION INSPIRED OXYGEN 100; BG HCO3 ACT 16.9 mmol/L (22.0-26.0); BG METHEMOGLOBIN 0.3 % (0.0-1.5); BG OXYGEN SATURATION 98.4 % (92.0-98.5); BG OXYHEMOGLOBIN 97.8 % (94.0-97.0); BG PH 7.267 (7.350-7.450); BG PO2 188.7 mmHg (75.0-100.0); BG SAMPLE SITE RIGHT FEMORAL; BG VENT MODE VENT - AC
[2021-01-15] MEDS ORDERED: MIDAZOLAM HCL 50 MG in DEXTROSE 5% WATER 40 ML IV ONE (03:00)
[2021-01-15] MEDS ORDERED: MIDAZOLAM HCL 100 MG in SODIUM CHLORIDE 0.9% 100 ML IV PRN (03:00)
[2021-01-15 05:12] LABS: HEMATOCRIT. 30.9 % (42.0-52.0); HEMOGLOBIN. 10.2 g/dL (14.0-18.0); MEAN CORPUSCULAR HEMOGLOBIN 31.9 pg (28.0-32.0); MEAN CORPUSCULAR VOLUME 96.2 fL (80.0-94.0); RED BLOOD CELL COUNT 3.21 mill/uL (4.7-6.1)
[2021-01-15 05:14] LABS: CHLORIDE 105 mEq/L (98-107)
[2021-01-15 05:22] LABS: PHOSPHORUS 6.5 mg/dL (2.5-4.9)
[2021-01-15 05:24] LABS: CREATINE KINASE 458 IU/L (39-308)
[2021-01-15 05:29] LABS: CREATINE KINASE MB FRACTION 6.5 ng/mL (0.5-3.6)
[2021-01-15] MEDS: DEXTROSE 50% WATER 50ML SYRINGE IV PRN ×8 (05:45→22:58)
[2021-01-15] MEDS: INSULIN LISPRO 100 UNITS/ML SUBCUT SCH ×4 (07:51→21:00)
[2021-01-15] MEDS ORDERED: SEVELAMER CARBONATE 800 MG TABLET PO SCH (07:52)
[2021-01-15] MEDS: BLOOD SUGAR DIAGNOSTIC STRIP TEST SCH ×4 (08:03→21:23)
[2021-01-15] MEDS ORDERED: NOREPINEPHRINE 8 MG in DEXT 5% WATER 242 ML IV PRN (08:15)
[2021-01-15] MEDS ORDERED: EPINEPHRINE 0.1MG/ML (1:10,000) 10ML SYR ONE (08:23)
[2021-01-15] MEDS ORDERED: SODIUM BICARBONATE 8.4% 1 MEQ/ML 50ML SYR IV ONE (08:23)
[2021-01-15] MEDS ORDERED: CALCIUM CHLORIDE 1GM/10ML SYR IV ONE (08:23)
[2021-01-15] MEDS ORDERED: ETOMIDATE 2MG/ML 10ML VIAL IV ONE (08:23)
[2021-01-15] MEDS: ASCORBIC ACID 500 MG TABLET PO SCH ×2 (08:37→22:58)
[2021-01-15] MEDS ORDERED: FENTANYL CITRATE/PF 1,000 MCG in SODIUM CHLORIDE 0.9% 80 ML IV PRN (09:00)
[2021-01-15] MEDS ORDERED: MIDAZOLAM HCL 100 MG in SODIUM CHLORIDE 0.9% 80 ML IV PRN (09:00)
[2021-01-15] MEDS ORDERED: ZINC SULFATE 220 MG ( 50 ) CAPSULE PO SCH (09:00)
[2021-01-15] MEDS ORDERED: ENOXAPARIN 30MG/0.3ML SYR SUBCUT SCH (09:00)
[2021-01-15] MEDS ORDERED: CHOLECALCIFEROL (D3) 1000 UNIT TABLET PO SCH (09:00)
[2021-01-15] MEDS ORDERED: FAMOTIDINE 20MG TABLET PO SCH (09:00)
[2021-01-15] MEDS ORDERED: ASPIRIN 325MG EC TABLET PO SCH (09:00)
[2021-01-15] MEDS ORDERED: FENTANYL CITRATE 2,500 MCG in SODIUM CHLORIDE 0.9% 200 ML IV PRN (09:15)
[2021-01-15] MEDS ORDERED: VANCOMYCIN 500 MG PREMIX 100 ML IV NR (10:00)
[2021-01-15 10:21] LABS: BG BASE EXCESS -9.2 mmol/L (-2.0-2.0); BG CARBOXYHEMOGLOBIN 0.4 % (0.5-1.5); BG DEOXYHEMOGLOBIN 2.8 % (0.0-5.0); BG FRACTION INSPIRED OXYGEN 80; BG HCO3 ACT 15.7 mmol/L (22.0-26.0); BG METHEMOGLOBIN 0.1 % (0.0-1.5); BG OXYGEN SATURATION 97.2 % (92.0-98.5); BG OXYHEMOGLOBIN 96.7 % (94.0-97.0); BG PCO2 30.7 mmHg (35.0-45.0); BG PH 7.326 (7.350-7.450); BG PO2 112.1 mmHg (75.0-100.0); BG SAMPLE SITE RIGHT BRACHIAL; BG TOTAL HEMOGLOBIN 10.5 g/dL (12.0-18.0); BG VENT MODE VENT - AC
[2021-01-15 11:03] LABS: NUCLEATED RED BLOOD CELLS 3 /100 WBC
[2021-01-15 11:04] LABS: PLATELET ESTIMATE DECREASED
[2021-01-15 11:07] LABS: MEAN PLATELET VOLUME 9.8 fl (7.4-10.4); PLATELET 63 x1000/uL (130-400)
[2021-01-15] MEDS ORDERED: IPRATROPIUM/ALBUTEROL 0.5-3(2.5)MG/3ML NEB HHN SCH (12:00)
[2021-01-15] MEDS: SEVELAMER CARBONATE 800 MG TABLET PO SCH (18:30)
[2021-01-16 02:30] VITALS: BP 110/43
[2021-01-16] MEDS ORDERED: EPINEPHRINE 5 MG in SODIUM CHLORIDE 0.9% 245 ML IV STA (03:21)
[2021-01-16] MEDS ORDERED: VASOPRESSIN 20 UNIT in SODIUM CHLORIDE 0.9% 99 ML STA (03:21)
[2021-01-16] MEDS ORDERED: CALCIUM CHLORIDE 1GM/10ML SYR IV ONE (08:40)
[2021-01-16] MEDS ORDERED: SODIUM BICARBONATE 8.4% 1 MEQ/ML 50ML SYR IV ONE (08:40)
[2021-01-16] MEDS ORDERED: EPINEPHRINE 0.1MG/ML (1:10,000) 10ML SYR ONE (08:40)
== END 2021-01-16 07:04 | DRG 871 ==
LOC: ER 14:26 → MICUSO 21:54 → CANRESERV 01-15 01:32 → ENRESERV 01-15 01:32 → EDBEDREQSVC 01-15 01:41 → EDBEDREQTM 01-15 01:41 → EDBEDREQDT 01-15 01:41 → EDBEDREQ 01-15 01:42
PROVIDERS: ADMIT Internal Medicine; ATTEND Internal Medicine
PROC: 5A12012 Performance of Cardiac Output, Single, Manual (ICD-10-PCS; principal; 2021-01-15)
PROC: 0BH17EZ Insertion of Endotracheal Airway into Trachea, Via Natural or Artificial Opening (ICD-10-PCS; 2021-01-15)
PROC: 5A1935Z Respiratory Ventilation, Less than 24 Consecutive Hours (ICD-10-PCS; 2021-01-15)
DX: A41.59 Other Gram-negative sepsis (principal); J96.00 Acute respiratory failure, unspecified whether with hypoxia or hypercapnia; N18.6 End stage renal disease; R65.21 Severe sepsis with septic shock; J18.9 Pneumonia, unspecified organism; I12.0 Hypertensive chronic kidney disease with stage 5 chronic kidney disease or end stage renal disease; E87.1 Hypo-osmolality and hyponatremia; E44.1 Mild protein-calorie malnutrition; Z68.44 Body mass index [BMI] 60.0-69.9, adult; I46.9 Cardiac arrest, cause unspecified; D69.6 Thrombocytopenia, unspecified; E11.22 Type 2 diabetes mellitus with diabetic chronic kidney disease; E11.51 Type 2 diabetes mellitus with diabetic peripheral angiopathy without gangrene; E11.649 Type 2 diabetes mellitus with hypoglycemia without coma; I25.10 Atherosclerotic heart disease of native coronary artery without angina pectoris; Z20.822 Contact with and (suspected) exposure to COVID-19; E83.51 Hypocalcemia; D64.9 Anemia, unspecified; R00.1 Bradycardia, unspecified; E78.00 Pure hypercholesterolemia, unspecified; D63.8 Anemia in other chronic diseases classified elsewhere; Z86.73 Personal history of transient ischemic attack (TIA), and cerebral infarction without residual deficits; Z89.611 Acquired absence of right leg above knee; Z89.612 Acquired absence of left leg above knee; Z99.2 Dependence on renal dialysis; Z79.82 Long term (current) use of aspirin; Z79.891 Long term (current) use of opiate analgesic; Z79.899 Other long term (current) drug therapy; Z79.4 Long term (current) use of insulin; B96.1 Klebsiella pneumoniae [K. pneumoniae] as the cause of diseases classified elsewhere
CPT/HCPCS: 36415; 36600; 71045; 71250; 74176; 80048; 80053; 80061; 82375; 82550; 82553; 82805; 82962; 83036; 83605; 83735; 84100; 84145; 84484; 85025; 87077; 87186; 87426; 93005; 94002; 94003; 94640; 99291; J0360; J0696; J2185; J2250; J3370; J3490; J7030; J7040; J7050; A4315